=== PATIENT | male | born 1970 | race African-American/Black ===

== ENCOUNTER 2017-02-27 18:02 | Emergency (ER) | payer SELFPAY ==
[2017-02-27 18:06] VITALS: BMI 59.1
--- NOTE | 2017-02-27 19:46 | PDOC ---
History of Present Illness - General Chief Complaint: Edema Stated Complaint: LT LEG PAIN/abd pain, diarrhea Time Seen by Provider: 02/27/17 19:06 - History of Present Illness Initial Comments: 02/27/17 19:49 HPI: 46M w/ hx of morbid obesity and chronic lower leg swelling presenting with L lower extremity pain. Pt reports that the pain began 2 days ago shortly after he started using lower extremity "pumps" to reduce edema. The pain has been getting progressively worse, 10/10, exacerbated by any movement, and markedly swollen. Pt reports having a stomach virus for the past 4 days associated with diarrhea, decreased appetite, and nausea, but no emesis. Pt reports spending a lot of time in bed the past few days. 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 He denies chest pain, SOB, cough. Past History - Past Medical History Allergies/Adverse Reactions: Allergies Allergy/AdvReac Type Severity Reaction Status Date / Time No Known Allergies Allergy Verified 02/27/17 22:15 Home Medications: Ambulatory Orders Clindamycin [Cleocin -] 300 mg PO Q6HPO #28 capsule 02/28/17 Diabetes: Yes (borderline) HTN: Yes Other medical history: morbily obese, elephantitis Comment:: 02/27/17 19:56 PMH: HTN borderline DM PSH: None Meds: patient could not remember what he takes Allergies: NKDA Fam Hx: DM in mom Social Hx: pt works as a sexual abuse counsellor - Psycho/Social/Smoking Cessation Hx Anxiety: No Suicidal Ideation: No Smoking History: Never smoked Have you smoked in the past 12 months: No Information on smoking cessation initiated: No Hx Alcohol Use: Yes (occasional) Drug/Substance Use Hx: No Substance Use Type: None Review of Systems - Review of Systems Comments:: 02/27/17 19:58 GENERAL: No fever, chills, night sweats, or weakness. HEAD, EYES, EARS, NOSE AND THROAT: No change in vision, ear pain, or sore throat CARDIOVASCULAR: No chest pain or palpitations RESPIRATORY: No cough, wheezing, or hemoptysis. GASTROINTESTINAL: nausea and diarrhea, no vomiting, constipation, or blood in the stool. GENITOURINARY: frequency and urgency MUSCULOSKELETAL: edema and pain in left leg SKIN: No rashes or pruritis ENDOCRINE: No increased thirst. No abnormal weight change NEUROLOGIC: No headache, dizziness, loss of consciousness, or change in strength /sensation. *Physical Exam - Vital Signs Last Vital Signs Temp Pulse Resp BP Pulse Ox 99.6 F 122 H 19 108/70 96 02/27/17 18:04 02/27/17 18:04 02/27/17 18:04 02/27/17 18:04 02/27/17 18:04 - Physical Exam Comments: 02/27/17 19:59 GENERAL: Awake, alert, and fully oriented, leaning on right leg HEAD: normocephalic, atraumatic HEENT: PERRLA, EOMI, sclera anicteric, conjunctiva clear, hearing grossly normal , nares patent, oropharynx clear without exudate, moist mucosa NECK: Normal ROM, supple, no lymphadenopathy, JVD, or masses HEART: tachycardic, normal rhythm, normal S1 and S2, no murmurs, rubs or gallops , peripheral pulses normal and equal bilaterally. LUNGS: CTAB, no wheezing, no rales ABDOMEN: marked pannus, soft, nontender, nondistended, normoactive bowel sounds. No guarding, no rebound. No masses EXTREMITIES: L lower extremity is markedly edematous, hyperpigmented, indurated , warm to touch, no rash visible, very tender all around. R lower extremity is similar in appearance but slightly less swollen and not warm to touch NEUROLOGICAL: Cranial nerves II through XII grossly intact. Normal speech, normal gait, no focal sensorimotor deficits ED Treatment Course - LABORATORY CBC & Chemistry Diagram: 02/27/17 22:15 02/27/17 22:15 Medical Decision Making - Medical Decision Making 02/27/17 20:02 46M w/ hx of morbid obesity and chronic LE swelling presenting with L lower extremity pain and swelling w/ recent hx of decreased mobility. Exam notable for temp of 99.6, tachycardia, and swollen and warm L LE. Likely cellulitis, r/ o DVT. -CBC: wbc of 13.3 -CXR- unremarkable -CMP-K of 3.4, low albumin -EKG -duplex U/S: no evidence of DVT. Large lymph node in left groin measuring about 5 x 2 cm. -Coags: INR of 1.16 -pain control with tylenol, then morphine. 02/27/17 21:54 02/27/17 22:50 02/27/17 22:52 02/27/17 23:36 02/27/17 23:38 *DC/Admit/Observation/Transfer Diagnosis at time of Disposition: Cellulitis Qualifiers: Site of cellulitis: extremity Site of cellulitis of extremity: lower extremity Laterality: left Qualified Code(s): L03.116 - Cellulitis of left lower limb - Discharge Dispostion Condition at time of disposition: Stable Admit: Yes - Prescriptions Prescriptions: Clindamycin [Cleocin -] 300 mg PO Q6HPO #28 capsule - Patient Instructions Printed Discharge Instructions: DI for Cellulitis -- Adult Additional Instructions: Finish course of antibiotics. If cellulitis worsens or does not resolve after course of antibiotics, return to ED. - Attestations Physician Attestion: 02/28/17 04:00 I, Dr. Talon Gambino, attest that this document has been prepared under my direction and personally reviewed by me in its entirety. I further attest, that it accurately reflects all work, treatment, procedures and medical decision -making performed by me.
[2017-02-27] MEDS ORDERED: ACETAMINOPHEN 500 MG TABLET (FP) PO ONE (20:06)
--- NOTE | 2017-02-27 20:44 | PDOC ---
Attending Attestation - HPI HPI: The patient is a 46 yo M with a past medical history significant for HTN, obesity, untreated DM, Hx of cellulitis on his R leg 1 year ago and chronic LE edema who presents with LLE pain and edema for 2 days. The patient states the pain and edema began shortly after using lower extremity pumps. The pain in his LLE has been getting progressively worse and is exacerbated with movement. The patient states the pain is worse near his ankle. The patient also notes hes been experiencing nausea, vomiting, diarrhea and decreased appetite last couple days. The patient describes his vomit as non-bilious and non-bloody. The patient states his leg pain started first and was followed by his N/V/D two days ago. 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 He denies chest pain, SOB and cough. He endorses frequency. He sees Dr. Humphries for wound care on his RLE. Allergies: NKDA PCP: Dr. Quintero Venita Mathis (): [phone] - Physicial Exam PE: GENERAL: Awake, alert, and fully oriented, in no acute distress HEAD: No signs of trauma EYES: PERRLA, EOMI, sclera anicteric, conjunctiva clear ENT: Auricles normal inspection, hearing grossly normal, nares patent, oropharynx clear without exudates. Moist mucosa NECK: Normal ROM, supple, no lymphadenopathy, JVD, or masses LUNGS: Breath sounds equal, clear to auscultation bilaterally. No wheezes, and no crackles HEART: Regular rate and rhythm, normal S1 and S2, no murmurs, rubs or gallops ABDOMEN: Obese, Soft, nontender, normoactive bowel sounds. No guarding, no rebound. No masses EXTREMITIES: Normal range of motion, edema mildly greater in LLE. LLE warm, erythematous, no fluctuance but indurated. No crepitus. No clubbing or cyanosis. No cords, erythema, or tenderness NEUROLOGICAL: Cranial nerves II through XII grossly intact. Normal speech, normal gait SKIN: Warm, Dry, normal turgor, no rashes or lesions noted. - Medical Decision Making Documentation prepared by Rosa Kee, acting as medical transcription supervisor for Lino Koenig MD, /DO. <Rosa Kee - Last Filed: 02/27/17 23:12> - Resident Resident Name: Talon Gambino - Medical Decision Making 02/28/17 00:02 46yo M hx chronic LE edema, HTN, "pre-diabetes" p/w LLE swelling, erythema, and warmth extending from the L knee to the L ankle concerning for LLE cellulitis vs DVT. Pt also with complaints of N/V/D concerning for gastroenteritis. Pt tachycardic on arrival to 122, likely 2/2 dehydration. Plan: -labs -LE US -IVF -blood cx -IV levaquin -consider admission Laboratory Results - last 24 hr 02/27/17 02/27/17 02/27/17 22:15 22:15 22:15 WBC 13.3 H D RBC 4.29 Hgb 12.1 Hct 38.3 MCV 89.2 MCH 28.2 MCHC 31.6 L RDW 15.4 Plt Count 167 D MPV 10.6 D Neutrophils % 77.4 D Lymphocytes % 11.1 D Monocytes % 10.2 Eosinophils % 1.1 Basophils % 0.2 INR 1.16 H PTT (Actin FS) Sodium 137 Potassium 3.4 L D Chloride 98 Carbon Dioxide 32 Anion Gap 7 L BUN 13 Creatinine 1.2 Creat Clearance w eGFR > 60 Random Glucose 107 H Lactic Acid Calcium 8.9 Total Bilirubin 0.7 D AST 25 D ALT 24 Alkaline Phosphatase 100 Total Protein 7.4 Albumin 3.0 L Urine Color Urine Appearance Urine pH Urine Protein Urine Glucose (UA) Urine Ketones Urine Blood Urine Nitrite Urine Bilirubin Urine Urobilinogen Ur Leukocyte Esterase Urine RBC Urine WBC Ur Epithelial Cells Urine Bacteria Hyaline Casts Urine Mucus 02/27/17 02/27/17 02/28/17 22:15 22:15 00:53 WBC RBC Hgb Hct MCV MCH MCHC RDW Plt Count MPV Neutrophils % Lymphocytes % Monocytes % Eosinophils % Basophils % INR PTT (Actin FS) 31.6 Sodium Potassium Chloride Carbon Dioxide Anion Gap BUN Creatinine Creat Clearance w eGFR Random Glucose Lactic Acid 1.3 Calcium Total Bilirubin AST ALT Alkaline Phosphatase Total Protein Albumin Urine Color Dia Urine Appearance Slcloudy Urine pH 5.0 Urine Protein 2+ H Urine Glucose (UA) Negative Urine Ketones Trace H Urine Blood 1+ H Urine Nitrite Negative Urine Bilirubin Negative Urine Urobilinogen 4.0 e.u/dl Ur Leukocyte Esterase Negative Urine RBC 2 Urine WBC 3 Ur Epithelial Cells Rare Urine Bacteria Few Hyaline Casts 1 Urine Mucus Moderate 02/28/17 03:14 US negative for DVT. WBC 13. Likely cellulitis of the LLE. Pt remains tachycardic although improved to low 100s after 1L NS. Will admit for cellulitis and dehydration. 02/28/17 03:18 <Lino Koenig - Last Filed: 02/28/17 03:19>
[2017-02-27] MEDS ORDERED: ACETAMINOPHEN 325 MG TABLET (FP) ONE (21:54)
[2017-02-27] MEDS ORDERED: morphine CARPU-JECT 4 MG/1 ML DISP.SYRIN IVPUSH ONE (22:16)
[2017-02-27] MEDS ORDERED: SODIUM CHLORIDE 1,000 ML IV STA (22:17)
[2017-02-27] MEDS ORDERED: LEVOFLOXACIN 500 MG IVPB 100 ML IVPB ONE ×2 (22:25→22:55)
[2017-02-27] MEDS ORDERED: morphine CARPU-JECT 4 MG/1 ML DISP.SYRIN ONE (22:26)
[2017-02-27 22:40] LABS: BASOPHIL 0.2 % (0-2.0); EOSINOPHIL 1.1 % (0-4.5); MCH 28.2 pg (25.7-33.7); MCHC 31.6 g/dl (32.0-35.9); MEAN CELL VOLUME 89.2 fl (80-96); MEAN PLT VOLUME 10.6 fl (7.5-11.1); NEUTROPHILS 77.4 % (42.8-82.8); PLATELET COUNT 167 K/MM3 (134-434); RDW 15.4 % (11.9-15.9); WHITE BLOOD COUNT 13.3 K/mm3 (4.0-10.0)
[2017-02-27 22:54] LABS: INR 1.16 (0.82-1.09); PROTHROMBIN TIME (PATIENT) 12.8 SEC (9.98-11.88)
[2017-02-27 23:08] LABS: ALK PHOS 100 U/L (45-117); ANION GAP 7 (8-16); BILIRUBIN,TOTAL 0.7 mg/dL (0.2-1.0); CALCIUM 8.9 mg/dL (8.5-10.1); CO2 32 mmol/L (21-32); CREATININE 1.2 mg/dL (0.7-1.3); GLUCOSE,RANDOM 107 mg/dL (74-106); SGOT/AST 25 U/L (15-37); SGPT/ALT 24 U/L (12-78); TOT PROT 7.4 g/dl (6.4-8.2)
--- NOTE | 2017-02-28 00:49 | CONSULT ---
Consult Consult Specialty:: General Medicine - History of Present Illness Chief Complaint: LLE pain History of Present Illness: 46 yo AA h/o morbid obesity and chronic b/l LE edema presented to the ED with LLE pain x [address] Humphries (vascular surgery) on Friday and was instructed to use pumps for leg swelling. He noticed a new onset of pain in LLE , throbbing, constant, 8/10 at worst, non-radiating, no other associated symptoms, and did not try any pain relief medication. Denies fever, chills, chest pain, sob, n/v, urinary or bowel symptoms. - History Source History Provided By: Patient - Alcohol/Substance Use Hx Alcohol Use: Yes (occasional) - Smoking History Smoking history: Never smoked Have you smoked in the past 12 months: No Home Medications - Allergies Allergies/Adverse Reactions: Allergies Allergy/AdvReac Type Severity Reaction Status Date / Time No Known Allergies Allergy Verified 02/27/17 22:15 - Home Medications Home Medications: Ambulatory Orders Clindamycin [Cleocin -] 300 mg PO Q6HPO #28 capsule 02/28/17 Review of Systems - Review of Systems Constitutional: reports: No Symptoms Cardiovascular: reports: No Symptoms. denies: Chest Pain Respiratory: reports: No Symptoms. denies: Cough, SOB Gastrointestinal: reports: No Symptoms. denies: Abdominal Pain, Constipation, Diarrhea, Nausea, Vomiting Genitourinary: reports: No Symptoms Musculoskeletal: reports: No Symptoms, Extremity Pain (LLE) Physical Exam Vital Signs: Vital Signs Temperature 99.6 F 02/27/17 18:04 Pulse Rate 122 H 02/27/17 18:04 Respiratory Rate 19 02/27/17 18:04 Blood Pressure 108/70 02/27/17 18:04 O2 Sat by Pulse Oximetry (%) 96 02/27/17 19:17 Constitutional: Yes: No Distress, Calm, Obese Cardiovascular: Yes: Tachycardia, S1, S2. No: S3, S4 Respiratory: Yes: CTA Bilaterally Gastrointestinal: Yes: Normal Bowel Sounds, Soft, Abdomen, Obese. No: Tenderness Extremities: Yes: Other (b/l chronic swelling and venous stasis; LLE tender to palpation, warm.) Edema: LLE: 1+, RLE: 1+ Integumentary: Yes: Venous Stasis Changes Neurological: Yes: WNL, Alert, Oriented Labs: CBC, BMP 02/27/17 22:15 02/27/17 22:15 Imaging - Results Chest X-ray: Report Reviewed, Image Reviewed Other: Report Reviewed, Image Reviewed Assessment/Plan LLE Cellulitis, in the setting of b/l chronic venous stasis and swelling - Clindamycin 450mg QID x 7 days - Tylenol 650mg Q6H PRN for pain - Received 1L NS in ED, give another 1L bolus NS - F/U with vascular and PMD within a week Visit type - Emergency Visit Emergency Visit: Yes Care time: The patient presented to the Emergency Department on the above date and was hospitalized for further evaluation of their emergent condition. - New Patient This patient is new to me today: Yes Date on this admission: 02/28/17 - Critical Care Critical Care patient: No
[2017-02-28] MEDS ORDERED: SODIUM CHLORIDE 1,000 ML IV STA (01:01)
[2017-02-28 01:02] LABS: URINE APPEARANCE SLCLOUDY; URINE BILIRUBIN NEGATIVE (NEGATIVE); URINE BLOOD 1+ (NEGATIVE); URINE COLOR AMBER; URINE GLUCOSE (UA) NEGATIVE (NEGATIVE); URINE KETONE TRACE (NEGATIVE); URINE LEUK ESTERASE NEGATIVE (NEGATIVE); URINE NITRITE NEGATIVE (NEGATIVE); URINE UROBILINOGEN 4.0 E.U/dl mg/dL (0.2-1.0)
[2017-02-28 01:04] LABS: URINE PROTEIN 2+ (NEGATIVE)
[2017-02-28 01:06] LABS: URINE BACTERIA FEW /hpf (NONE SEEN); URINE HYALINE CAST 1 /lpf; URINE MUCUS MODERATE; URINE RBC 2 /hpf (0-3); URINE WBC 3 /hpf (3-5)
[2017-02-28 03:45] VITALS: BP 115/70; PULSE 99; TEMP 98.9
--- NOTE | 2017-02-28 10:09 | EKG ---
Test Reason : Blood Pressure : / mmHG Vent. Rate : 103 BPM Atrial Rate : 103 BPM P-R Int : 130 ms QRS Dur : 084 ms QT Int : 344 ms P-R-T Axes : 047 065 011 degrees QTc Int : 450 ms SINUS TACHYCARDIA OTHERWISE NORMAL ECG WHEN COMPARED WITH ECG OF 11-MAY-2016 20:21, NO SIGNIFICANT CHANGE WAS FOUND Confirmed by ROSSY MCCLOUD MD ([id number]) on 02/28/2017 10:08:54 AM Referred By: Confirmed By:ROSSY MCCLOUD MD
== END 2017-02-28 03:51 | disposition home or self-care (01) ==
LOC: JER 18:02 → UNDOADMOB 02-28 01:55 → JERBED 02-28 01:55 → JER 02-28 03:51
PROC: 3E03329 Introduction of Other Anti-infective into Peripheral Vein, Percutaneous Approach (ICD-10-PCS; principal; 2017-02-27)
PROC: 3E033NZ Introduction of Analgesics, Hypnotics, Sedatives into Peripheral Vein, Percutaneous Approach (ICD-10-PCS; 2017-02-27)
PROC: 3E0337Z Introduction of Electrolytic and Water Balance Substance into Peripheral Vein, Percutaneous Approach (ICD-10-PCS; 2017-02-27)
DX: L03.116 Cellulitis of left lower limb (principal); E66.9 Obesity, unspecified; Z68.43 Body mass index [BMI] 50.0-59.9, adult; I10 Essential (primary) hypertension; I89.0 Lymphedema, not elsewhere classified
CPT/HCPCS: 36415; 71020-TC; 80053; 81003; 81015; 83605; 85025; 85610; 85730; 87040; 93005; 93010; 93970-TC; 99283-25

== ENCOUNTER 2017-03-04 07:04 | Inpatient (IN) | payer SELFPAY ==
[2017-03-04 07:18] VITALS: BMI 59.1
[2017-03-04] MEDS ORDERED: SODIUM CHLORIDE 0.9% 1000 ML INFUS.BAG IV ONE (07:42)
[2017-03-04] MEDS ORDERED: VANCOMYCIN 1 GRAM (PRE-DOCKED) 1,000 MG/250 ML BAG IVPB ONE (07:48)
[2017-03-04] MEDS ORDERED: PIPERACILLIN/TAZOB 4.5 GM/100 ML PRE-DOCKED IVPB ONE (07:49)
--- NOTE | 2017-03-04 07:56 | PDOC ---
Attending Attestation - Resident Resident Name: GreysonGreg davis - ED Attending Attestation I have performed the following: I have examined & evaluated the patient, The case was reviewed & discussed with the resident, I agree w/resident's findings & plan, Exceptions are as noted - HPI HPI: 03/04/17 07:49 46y/o M HTN, chronic venous stasis, prediabetic seen here on 02/27 for worsening LLE swelling/pain, diagnosed with cellulitis and discharged on clindamycin with plans for outpt f/u as per vascular, now p/w worsening LLE swelling/redness/ pain despite compliance with abx. no f/c, no motor/sensory deficit. no cp/palp/sob - Physicial Exam PE: 03/04/17 07:50 98.2, 112 (tachy to 110 on prior visit also), SBP 90 alert, morbidly obese but comfortable, well appearing, nl RR LLE: erythematous, warm, significant edema with superficial wounds posterior calf wheeping clear fluid nvi, FROM all joints - Medical Decision Making 03/04/17 07:52 Patient seen and evaluated with the resident. I agree with the overall evaluation, assessment, and management with the following summary of visit: 46-year-old male with history of prediabetes, chronic venous stasis presents with persistent left lower extremity cellulitis despite trial of outpatient clindamycin. Patient had negative DVT ultrasound on prior visit, cellulitis persists. Mild tachycardia and systolic blood pressure of 90, concerning for early SIRS/sepsis. Sepsis protocol initiated IV abx repeat doppler consult vascular Dr. Humphries admit
[2017-03-04] MEDS ORDERED: PIPERACILLIN/TAZOB 4.5 GM 100 ML IVPB ONE (08:00)
--- NOTE | 2017-03-04 08:05 | PDOC ---
History of Present Illness - General History Source: Patient Exam Limitations: No Limitations - History of Present Illness Initial Comments: 03/04/17 08:00 The patient is a 46M with a PMH of HTN, untreated DM, morbid obesity, and h/o cellulitis in R leg 1 year ago. The patient presented 5 days ago with symptoms of LLE cellulitis, was d/c with tylenol for pain and clindamycin for cellulitis coverage. Today the patient presents with overnight painful LLE with weeping ulcers. He states the pain is due to the tightness in his legs. He is compliant wit his abx. He follows with Dr. Humphries for his wound care. Allergies: none Surg: none recent Social: occasional drinks; does not smoke, or use recreational drugs <Greg Summers - Last Filed: 03/04/17 10:11> <Willy Lo - Last Filed: 03/04/17 11:06> - General Chief Complaint: Wound Infection Stated Complaint: SWOLLEN LEGS/WOUND Time Seen by Provider: 03/04/17 07:16 Past History - Past Medical History Diabetes: Yes (borderline) HTN: Yes - Psycho/Social/Smoking Cessation Hx Anxiety: No Suicidal Ideation: No Smoking History: Never smoked Have you smoked in the past 12 months: No Hx Alcohol Use: Yes (occasional) Drug/Substance Use Hx: No Substance Use Type: None <Greg Summers - Last Filed: 03/04/17 10:11> <Willy Lo - Last Filed: 03/04/17 11:06> - Past Medical History Allergies/Adverse Reactions: Allergies Allergy/AdvReac Type Severity Reaction Status Date / Time No Known Allergies Allergy Verified 03/04/17 07:06 Home Medications: Ambulatory Orders Unobtainable 03/04/17 Review of Systems - Review of Systems Able to Perform ROS?: Yes Is the patient limited Chinese proficient: No Constitutional: No: Chills, Fever Respiratory: No: Shortness of Breath Cardiac (ROS): No: Chest Pain ABD/GI: No: Nausea, Vomiting, Other (abd pain) : No: Burning, Dysuria, Discharge Integumentary: Yes: Other (b/l LE swelling and weeping wounds) Neurological: No: Headache, Numbness, Tingling, Weakness <Greg Summers - Last Filed: 03/04/17 10:11> *Physical Exam - Vital Signs Last Vital Signs Temp Pulse Resp BP Pulse Ox 98.2 F 112 H 15 90/33 95 03/04/17 07:06 03/04/17 07:06 03/04/17 07:06 03/04/17 07:06 03/04/17 07:06 - Physical Exam General Appearance: Yes: Nourished, Obese HEENT: positive: Normal Voice, Hearing Grossly Normal Respiratory/Chest: positive: Lungs Clear, Normal Breath Sounds. negative: Chest Tender, Accessory Muscle Use, Labored Respiration Cardiovascular: positive: Regular Rhythm, S1, S2, Tachycardia. negative: Diastolic Murmur, Systolic Murmur Gastrointestinal/Abdominal: positive: Flat, Soft. negative: Tender, Guarding, Rebound, Tenderness Extremity: positive: Tender, Pedal Edema (LLE), Swelling, Calf Tenderness, Erythema, Inflammation Integumentary: positive: Swelling, Other (3 weeping ulcers on posterior LLE) Neurologic: positive: Fully Oriented, Alert, Normal Mood/Affect, Motor Strength 5/5 <Greg Summers - Last Filed: 03/04/17 10:11> - Vital Signs Last Vital Signs Temp Pulse Resp BP Pulse Ox 98.2 F 91 H 15 114/58 97 03/04/17 07:06 03/04/17 08:05 03/04/17 07:06 03/04/17 08:05 03/04/17 08:05 <Willy Lo - Last Filed: 03/04/17 11:06> Heart Score/ECG Review - QRS Widened: RBBB (incomplete) - ECG Impressions Tachycardia: Sinus <Greg Summers - Last Filed: 03/04/17 10:11> ED Treatment Course - LABORATORY CBC & Chemistry Diagram: 03/04/17 08:15 03/04/17 08:15 - RADIOLOGY Radiology Studies Ordered: Category Date Time Status CHEST X-RAY PORTABLE* [RAD] Stat Radiology 03/04/17 07:42 Ordered DUPLEX VASCUL US-2LEGS [US] Stat Ultrasound 03/04/17 07:41 Ordered <Greg Summers - Last Filed: 03/04/17 10:11> - LABORATORY CBC & Chemistry Diagram: 03/04/17 08:15 03/04/17 08:15 - ADDITIONAL ORDERS Additional order review: Laboratory Results 03/04/17 08:32 VBG pH 7.41 POC VBG pCO2 53.0 H POC VBG pO2 38.0 Mixed VBG HCO3 33.0 H 03/04/17 08:15 RBC 3.97 L MCV 89.0 MCHC 31.7 L RDW 15.7 MPV 10.1 Neutrophils % Y Lymphocytes % Y - RADIOLOGY Radiograph Interpretation: 03/04/17 09:05 Chest X-Ray, reviewed by Abad Duran MD. Impression: Shallow inspiration. Cardiomegaly. No airspace opacities are seen in the visualized lungs. Left lower lung zone obscured by the cardiac silhouette, soft tissues of the chest. Duplex Vascular Study, lower extremities bilaterally. Read by Maco Evans MD. Impression: There is no evidence of deep venous thromboses in both lower extremities. Soft tissue swelling in the left and to a lesser extent in the right leg. 03/04/17 11:06 - Medications Given in the ED: ED Medications Discontinued Medications Generic Name Dose Route Start Last Admin Trade Name Freq PRN Reason Stop Dose Admin Piperacillin Sod/Tazobactam Sod 4.5 gm 03/04/17 07:49 03/04/17 08:25 Zosyn 4.5gm Ivpb (Pre-Docked) IVPB 03/04/17 07:50 4.5 gm ONCE ONE Administration Sodium Chloride 1,000 ml 03/04/17 07:42 03/04/17 08:25 Normal Saline - IV 03/04/17 07:43 1,000 ml ONCE ONE Administration Vancomycin HCl 1,000 mg 03/04/17 07:48 03/04/17 08:38 Vancomycin (Pre-Docked) IVPB 03/04/17 07:49 Not Given ONCE ONE Protocol <Willy Lo - Last Filed: 03/04/17 11:06> Medical Decision Making - Medical Decision Making 03/04/17 08:13 The patient is a 46M with a PMH of HTN, untreated DM, and morbid obesity who presents with a 5 day history of LLE cellulitis. He has failed outpatient clindamycin and I have ordered a sepsis protocol with broad spectrum IV abx. 03/04/17 08:59 CBC results: - WBC Count of 25.2. - Hgb 11.2. 03/04/17 10:11 Pt signed out to hospitalist team, resident of Dr. Clark. <Greg Summers - Last Filed: 03/04/17 10:11> *DC/Admit/Observation/Transfer - Discharge Dispostion Admit: Yes <Greg Summers - Last Filed: 03/04/17 10:11> <Willy Lo - Last Filed: 03/04/17 11:06> Diagnosis at time of Disposition: Cellulitis Qualifiers: Site of cellulitis: extremity Site of cellulitis of extremity: lower extremity Laterality: left Qualified Code(s): L03.116 - Cellulitis of left lower limb - Discharge Dispostion Condition at time of disposition: Stable
[2017-03-04] MEDS ORDERED: VANCOMYCIN 2,000 MG in DEXTROSE 5%-WATER - 500 ML IVPB ONE (08:18)
[2017-03-04 08:34] LABS: VENOUS PH 7.41 (7.32-7.42)
[2017-03-04 08:44] LABS: MCH 28.2 pg (25.7-33.7); MCHC 31.7 g/dl (32.0-35.9); MEAN PLT VOLUME 10.1 fl (7.5-11.1); PLATELET COUNT 284 K/MM3 (134-434); RDW 15.7 % (11.9-15.9); WHITE BLOOD COUNT 25.2 K/mm3 (4.0-10.0)
[2017-03-04 09:02] LABS: INR 1.27 (0.82-1.09)
[2017-03-04 09:11] LABS: ALBUMIN 2.3 g/dl (3.4-5.0); ANION GAP 8 (8-16); CALCIUM 8.2 mg/dL (8.5-10.1); CO2 32 mmol/L (21-32); CREATININE 1.3 mg/dL (0.7-1.3); GLUCOSE,RANDOM 104 mg/dL (74-106); SGPT/ALT 19 U/L (12-78); TOT PROT 6.5 g/dl (6.4-8.2)
[2017-03-04 09:13] LABS: ALK PHOS 106 U/L (45-117); TROPONIN I < 0.02 ng/ml (0.00-0.05)
[2017-03-04 09:18] LABS: CPK 206 IU/L (39-308); SGOT/AST 21 U/L (15-37)
[2017-03-04 10:32] LABS: METAMYELOCYTE 0 % (0-2); PLATELET ESTIMATE ADEQUATE (NORMAL)
--- NOTE | 2017-03-04 11:07 | EKG ---
Test Reason : Blood Pressure : / mmHG Vent. Rate : 092 BPM Atrial Rate : 092 BPM P-R Int : 132 ms QRS Dur : 086 ms QT Int : 394 ms P-R-T Axes : 037 034 010 degrees QTc Int : 487 ms SINUS RHYTHM. LEFT ATRIAL ENLARGEMENT rSR' IN V1 PROLONGED QT ABNORMAL ECG WHEN COMPARED WITH ECG OF 28-FEB-2017 01:19, NO SIGNIFICANT CHANGE WAS FOUND Confirmed by KIMBERLY FARRAR MD ([id number]) on 03/04/2017 11:06:28 AM Referred By: Confirmed By:KIMBERLY FARRAR MD
--- NOTE | 2017-03-04 11:47 | HP ---
CHIEF COMPLAINT: Left leg pain and swelling. PCP: HISTORY OF PRESENT ILLNESS: 46 yo morbidly obese M with significant PMHx of pre-diabetes,HTN, and chronic venous insufficiency present with one week history of left leg swelling and redness. He was seen in ED on 02/27/17 and diagnosed with acute cellulitis of left leg and given a perscription of oral clindamycin. Despite being compliant with medication he returns today with worsening swelling and redness as well as new ulceration. He states that he has had no improvement of symptoms since last seen. He also endorsed subjective fever and chills. Pain in legs is significant 10/10 localized LLE squeezing pain.No alleviating factors and aggravated with palpation.Denies CP,REYES, SOB, abd.pain, N/V. ER course was notable for: (1)Given Vanco/Zosyn x1-->blood and urine cultures sent prior to administration. (2)LE xray showed no acute bony abnormalities are seen. No evidence of bony destructive changes. No evidence of radiopaque foreign body, soft tissues emphysematous changes. (3)LE doppler was negative for DVT with only soft tissue swelling. Recent Travel:Denies PAST MEDICAL HISTORY: pre-diabetes,HTN, and chronic venous insufficiency PAST SURGICAL HISTORY:none Social History: Smoking: Denies Alcohol:Denies Drugs: denies Family History: Allergies No Known Allergies Allergy (Verified 03/04/17 07:06) HOME MEDICATIONS: Home Medications Medication Instructions Recorded Unobtainable 03/04/17 REVIEW OF SYSTEMS CONSTITUTIONAL: fever, chills, diaphoresis, generalized weakness Absent: , malaise, loss of appetite, weight change HEENT: Absent: rhinorrhea, nasal congestion, throat pain, throat swelling, difficulty swallowing, mouth swelling, ear pain, eye pain, visual changes CARDIOVASCULAR: Absent: chest pain, syncope, palpitations, irregular heart rate, lightheadedness , peripheral edema RESPIRATORY: Absent: cough, shortness of breath, dyspnea with exertion, orthopnea, wheezing, stridor, hemoptysis GASTROINTESTINAL: Absent: abdominal pain, abdominal distension, nausea, vomiting, diarrhea, constipation, melena, hematochezia GENITOURINARY: Absent: dysuria, frequency, urgency, hesitancy, hematuria, flank pain, genital pain MUSCULOSKELETAL: Absent: myalgia, arthralgia, joint swelling, back pain, neck pain SKIN: LEFT lower ext itching and pain. Absent: rash, itching, pallor HEMATOLOGIC/IMMUNOLOGIC: Absent: easy bleeding, easy bruising, lymphadenopathy, frequent infections ENDOCRINE: Absent: unexplained weight gain, unexplained weight loss, heat intolerance, cold intolerance NEUROLOGIC: Absent: headache, focal weakness or paresthesias, dizziness, unsteady gait, seizure, mental status changes, bladder or bowel incontinence PSYCHIATRIC: Absent: anxiety, depression, suicidal or homicidal ideation, hallucinations. PHYSICAL EXAMINATION GENERAL: AAOx3, Mild distress. HEAD: AT/NC EYES: PERRLA, EOMI, sclera anicteric, conjunctiva clear. No lid lag. EARS, NOSE, THROAT: Moist mucous membranes. NECK: Thick, supple without lymphadenopathy, JVD, or masses. LUNGS: Decreased breath sounds bilaterally(poor inspiratory effort 2/2 body habitus). No wheezes, and no crackles. No accessory muscle use. HEART:RRR, NO M/G/R ABDOMEN: Soft,obese, nontender, not distended, normoactive bowel sounds, no guarding, no rebound, no masses. No hepatomegaly or splenomegaly. MUSCULOSKELETAL: Normal range of motion at all joints. No bony deformities or tenderness. No CVA tenderness. UPPER EXTREMITIES: 2+ pulses, warm, well-perfused. No cyanosis. No clubbing. No peripheral edema. LOWER EXTREMITIES: 1+ pulses, warm, well-perfused. left calf tenderness. 3+ peripheral edema bilaterally. LLE with 2 posterior weeping ulcers measuring 2x2 and 8x3 NEUROLOGICAL: Cranial nerves II-XII intact. Normal speech. gait not observed. PSYCHIATRIC: Cooperative. Good eye contact. Appropriate mood and affect. SKIN: Warm, dry, normal turgor, LLE cellulitis from ankle almost up to knee. ASSESSMENT/PLAN: 46 yo morbidly obese M with significant PMHx of pre-diabetes,HTN, and chronic venous insufficiency admitted for sepsis secondary to LE cellulitis. Problem List - Problem (1) Sepsis affecting skin Assessment/Plan: * Meets criteria for sepsis. * Admit to med-surg * Blood and Urine cultures * Given Vanco/Zosyn in ER * ID consult. (2) Cellulitis Assessment/Plan: * Iv abx initiated- ID consulted for Abx management. * LE Doppler (-) DVT * LE XRAY negative for fracture or bony involvement. * Will consult vascular Dr. Humphries as he follows him as outpatient. * Elevation of LLE * Wound care for open ulcers. Santly dressing. (3) Lymphedema of extremity Assessment/Plan: * He uses Lymphedema pump at home but unable to bring it in * Compression stockings. Code(s): I89.0 - LYMPHEDEMA, NOT ELSEWHERE CLASSIFIED (4) HTN (hypertension) Assessment/Plan: * Continue home meds for BP control with goal of SBP <140 (5) Pre-diabetes Assessment/Plan: * HgbA1c * ADA diet * Novolog ISS ACHS * BGM ACHS Visit type - Emergency Visit Emergency Visit: Yes ED Registration Date: 03/04/17 Care time: The patient presented to the Emergency Department on the above date and was hospitalized for further evaluation of their emergent condition. - New Patient This patient is new to me today: Yes Date on this admission: 03/04/17 - Critical Care Critical Care patient: No
[2017-03-04] MEDS ORDERED: SODIUM CHLORIDE 1,000 ML IV STA (14:02)
--- NOTE | 2017-03-04 15:08 | PN ---
Teaching Attending Note Name of Resident: Zac Ontiveros ATTENDING PHYSICIAN STATEMENT I saw and evaluated the patient. I reviewed the resident's note and discussed the case with the resident. I agree with the resident's findings and plan as documented. SUBJECTIVE: Patient is a 46yo male presented with LLE cellulitis and edema. OBJECTIVE: Vital Signs Temperature 98.2 F 03/04/17 07:06 Pulse Rate 90 03/04/17 14:48 Respiratory Rate 15 03/04/17 07:06 Blood Pressure 119/63 03/04/17 14:48 O2 Sat by Pulse Oximetry (%) 97 03/04/17 14:48 CBCD WBC 25.2 K/mm3 (4.0-10.0) H D 03/04/17 08:15 RBC 3.97 M/mm3 (4.00-5.60) L 03/04/17 08:15 Hgb 11.2 GM/dL (11.7-16.9) L 03/04/17 08:15 Hct 35.3 % (35.4-49) L 03/04/17 08:15 MCV 89.0 fl (80-96) 03/04/17 08:15 MCHC 31.7 g/dl (32.0-35.9) L 03/04/17 08:15 RDW 15.7 % (11.9-15.9) 03/04/17 08:15 Plt Count 284 K/MM3 (134-434) D 03/04/17 08:15 MPV 10.1 fl (7.5-11.1) 03/04/17 08:15 CMP Sodium 138 mmol/L (136-145) 03/04/17 08:15 Potassium 3.6 mmol/L (3.5-5.1) 03/04/17 08:15 Chloride 98 mmol/L (98-107) 03/04/17 08:15 Carbon Dioxide 32 mmol/L (21-32) 03/04/17 08:15 Anion Gap 8 (8-16) 03/04/17 08:15 BUN 15 mg/dL (7-18) 03/04/17 08:15 Creatinine 1.3 mg/dL (0.7-1.3) 03/04/17 08:15 Creat Clearance w eGFR 59.70 (>60) 03/04/17 08:15 Random Glucose 104 mg/dL (74-106) 03/04/17 08:15 Calcium 8.2 mg/dL (8.5-10.1) L 03/04/17 08:15 Total Bilirubin 1.0 mg/dL (0.2-1.0) D 03/04/17 08:15 AST 21 U/L (15-37) 03/04/17 08:15 ALT 19 U/L (12-78) D 03/04/17 08:15 Alkaline Phosphatase 106 U/L (45-117) 03/04/17 08:15 Total Protein 6.5 g/dl (6.4-8.2) 03/04/17 08:15 Albumin 2.3 g/dl (3.4-5.0) L D 03/04/17 08:15 CARDIAC ENZYMES Creatine Kinase 206 IU/L (39-308) 03/04/17 08:15 Troponin I < 0.02 ng/ml (0.00-0.05) 03/04/17 08:15 Current Medications Generic Name Dose Route Start Last Admin Trade Name Freq PRN Reason Stop Dose Admin Heparin Sodium (Porcine) 5,000 unit 03/04/17 22:00 Heparin - SQ BID ROSEMARIE Morphine Sulfate 2 mg 03/04/17 14:02 Morphine Injection - IVPUSH Q4H PRN PAIN Home Medications Medication Instructions Recorded Unobtainable 03/04/17 Current Medications Generic Name Dose Route Start Last Admin Trade Name Freq PRN Reason Stop Dose Admin Heparin Sodium (Porcine) 5,000 unit 03/04/17 22:00 Heparin - SQ BID ROSEMARIE Cefazolin Sodium/Dextrose 50 mls @ 100 mls/hr 03/04/17 18:15 03/04/17 18:59 Ancef 2 Gm Premixed Ivpb - IVPB 100 mls/hr Q8H-IV ROSEMARIE Administration Morphine Sulfate 2 mg 03/04/17 14:02 03/04/17 17:34 Morphine Injection - IVPUSH 2 mg Q4H PRN Administration PAIN LLE: swellon with 3 plus edema , good pulses 2 plus, open blisters oozing. rest PE: as per resident's note CXR negative for acute pathologies, positive for cardiomegaly ASSESSMENT AND PLAN: Patient is a 46 M with PMHx of HTN, Borderline DM on metformin and cellulitis presented to ED with left leg swelling with edema and open blisters that were ruptured. Patient was admitted for sepsis secondary to cellulitis. #Sepsis due to LLE cellulitis on Cefazolin and s/p Vanc/Zosyn #Acute cellulitis secondary to chronic venous stasis ;vascular surgery consulted , IV Antibiotics continue #T2DM on metformin 500 mg BID, check A1c, BGM TIDAC #HTN on Metoprolol 25 mg PO daily DvT Px; heparin
[2017-03-04 15:38] LABS: URINE APPEARANCE CLEAR; URINE BILIRUBIN NEGATIVE (NEGATIVE); URINE BLOOD 2+ (NEGATIVE); URINE COLOR DKYELLOW; URINE GLUCOSE (UA) NEGATIVE (NEGATIVE); URINE KETONE NEGATIVE (NEGATIVE); URINE LEUK ESTERASE NEGATIVE (NEGATIVE); URINE NITRITE NEGATIVE (NEGATIVE); URINE UROBILINOGEN 4.0 E.U/dl mg/dL (0.2-1.0)
--- NOTE | 2017-03-04 15:45 | HP ---
CHIEF COMPLAINT: Left leg swelling and pain PCP: HISTORY OF PRESENT ILLNESS: 46 M w/ PMHx HTN, preDM (treated with metformin) and cellulitis presented to ED with left leg swelling and new ruptured blisters. The patient had been to ED 1 week ago for the same complaint and was discharged from the ED with Clindamycin. Pt states that despite taking his medication as directed, his left leg has been worsening. He states that the blisters were not present 1 week ago. Pain is described as 10/10, nonradiating, tight, burning constant pain that is exacerbated with standing or touching. Nothing relieves the pain. Patient stated he never experienced this pain before. He has a past history of cellulitis of the right leg, which was treated with antibiotics over a year ago. Patient states that he uses a pressure pump for his legs to reduce chronic swelling. Patient denies fever, sweating, chills, SOB, chest pain, loss of sensation, muscle weakness. ER course was notable for: (1) leukocytosis, INR 1.27, US negative for DVT, CXR showed cardiomegaly, Tib/ Fib XR negative for pathology, EKG PREETI, long QT and RBBB, VBG (2) Vancomycin/Zosyn, 1L NS (3) Recent Travel: denies PAST MEDICAL HISTORY: HTN, preDM (treated with metformin) and cellulitis PAST SURGICAL HISTORY: Denies Social History: Smoking: denies Alcohol: socially Drugs: remote marijuana Family History: Denies Allergies: No Known Allergies Allergy (Verified 03/04/17 07:06) HOME MEDICATIONS: Home Medications Medication Instructions Recorded Unobtainable 03/04/17 REVIEW OF SYSTEMS CONSTITUTIONAL: Absent: fever, chills, diaphoresis, generalized weakness, malaise, loss of appetite, weight change HEENT: Absent: rhinorrhea, nasal congestion, throat pain, throat swelling, difficulty swallowing, mouth swelling, ear pain, eye pain, visual changes CARDIOVASCULAR: Absent: chest pain, syncope, palpitations, irregular heart rate, lightheadedness , peripheral edema RESPIRATORY: Absent: cough, shortness of breath, dyspnea with exertion, orthopnea, wheezing, stridor, hemoptysis GASTROINTESTINAL: Absent: abdominal pain, abdominal distension, nausea, vomiting, diarrhea, constipation, melena, hematochezia GENITOURINARY: Absent: dysuria, frequency, urgency, hesitancy, hematuria, flank pain, genital pain MUSCULOSKELETAL: Absent: myalgia, arthralgia, joint swelling, back pain, neck pain SKIN: Lower left leg lesion, weeping ulcer Absent: rash, itching, pallor HEMATOLOGIC/IMMUNOLOGIC: Absent: easy bleeding, easy bruising, lymphadenopathy, frequent infections ENDOCRINE: Absent: unexplained weight gain, unexplained weight loss, heat intolerance, cold intolerance NEUROLOGIC: Absent: headache, focal weakness or paresthesias, dizziness, unsteady gait, seizure, mental status changes, bladder or bowel incontinence PSYCHIATRIC: Absent: anxiety, depression, suicidal or homicidal ideation, hallucinations. PHYSICAL EXAMINATION GENERAL: Awake, alert, and fully oriented, in no acute distress. HEAD: Normal with no signs of trauma. EYES: Pupils equal, round and reactive to light, extraocular movements intact, sclera anicteric, conjunctiva clear. No lid lag. EARS, NOSE, THROAT: oropharynx clear without exudates. Moist mucous membranes. NECK: Normal range of motion, supple without lymphadenopathy, JVD, or masses. LUNGS: Breath sounds distant, equal, clear to auscultation bilaterally. No wheezes, and no crackles. No accessory muscle use. HEART: Heart sounds distant, regular rate and rhythm, normal S1 and S2 without murmur, rub or gallop. ABDOMEN: Soft, nontender, not distended, normoactive bowel sounds, no guarding, no rebound, no masses. No hepatomegaly or splenomegaly. Morbid obesity. MUSCULOSKELETAL: Normal range of motion at all joints. No bony deformities or tenderness. No CVA tenderness. UPPER EXTREMITIES: 2+ pulses, warm, well-perfused. No cyanosis. No clubbing. No peripheral edema. LOWER EXTREMITIES: left greater than right size and pitting edema, left sided weeping ruptured blisters, inflamed, warm to the touch, erythematous NEUROLOGICAL: Cranial nerves II-XII intact. Normal speech. Normal gait. PSYCHIATRIC: Cooperative. Good eye contact. Appropriate mood and affect. SKIN: Warm, dry, left leg more edematous than the right, left leg tender to touch, warm, erythematous with blisters and weeping wounds, normal capillary refill. ASSESSMENT/PLAN: 46 M w/ PMHx HTN, preDM (treated with metformin) and cellulitis presented to ED with left leg swelling and new ruptured blisters. Patient was admitted for sepsis secondary to cellulitis. #Sepsis secondary to cellulitis -WBC 25.2, HR 112, left lower leg cellulitis -US negative for DVT -in ED: 1L NS, Vanc/Zosyn, CXR negative for acute pathologies, positive for cardiomegaly -ID consult -blood cultures and urine cultures pending -NS, Vanc/Zosyn -LA pending #Cellulitis secondary to chronic venous stasis -vascular surgery consult #Pre-diabetes -random glucose 104 -patient taking metformin 500 mg BID -check A1c -BGM TIDAC #HTN -most recent BP 114/58 -patient taking Metoprolol 25 mg PO daily -continue regimen #FEN -NS bolus -FU lytes -DM diet #Dispo -admit to [facility] [place] for sepsis Zac Ontiveros MD PGY-1 Kim Stokes MS3 Visit type - Emergency Visit Emergency Visit: No - New Patient This patient is new to me today: No - Critical Care Critical Care patient: No
[2017-03-04 15:57] LABS: URINE PROTEIN 1+ (NEGATIVE)
[2017-03-04 16:23] LABS: URINE MUCUS RARE; URINE RBC 40 /hpf (0-3); URINE WBC 2 /hpf (3-5)
[2017-03-04] MEDS: morphine CARPU-JECT 4 MG/1 ML DISP.SYRIN IVPUSH PRN ×2 (17:34→21:37)
--- NOTE | 2017-03-04 18:12 | PN ---
Progress Note (short form) - Note Progress Note: ID Consult dictated Cellulitis L LE Chronic lymphedema LE Morbid obesity Pending c/s empiric cefazolin Elevation
[2017-03-04] MEDS: CEFAZOLIN 2 GM/D5W 50 ML IVPB SCH (18:59)
[2017-03-04] MEDS: HEPARIN NA (PORCINE) 5,000 UNITS/ML 1ML VIAL SQ SCH (21:37)
[2017-03-04] MEDS ORDERED: HEPARIN NA (PORCINE) 5,000 UNITS/ML 1ML VIAL SQ SCH (22:00)
[2017-03-05] MEDS: CEFAZOLIN 2 GM/D5W 50 ML IVPB SCH (01:25)
[2017-03-05] MEDS: HEPARIN NA (PORCINE) 5,000 UNITS/ML 1ML VIAL SQ SCH ×3 (06:13→22:18)
--- NOTE | 2017-03-05 07:09 | CONS ---
DATE OF CONSULTATION: DATE OF DICTATION: 03/04/2017 HISTORY OF PRESENT ILLNESS: The patient is a 46-year-old morbidly obese male with a history of bilateral lower extremity chronic lymphedema evaluated for cellulitis of the left lower extremity. The patient developed worsening erythema, warmth, and swelling of his left lower extremity and pain on ambulation. He presented to the emergency room on February 27, 2017. He was evaluated and prescribed oral clindamycin. Despite the oral antibiotic therapy, he developed progressively worsening pain, swelling, and erythema of the left leg. He returned to the emergency room where he was noted to be hypotensive and tachycardic. Doppler exam was performed of the leg and was negative for DVT. He was empirically treated with vancomycin and Zosyn. Laboratory data on admission shows a white blood cell count of 25,000 with a left shift. He denies any traumatic injury to his left lower extremity. No reports of insect or animal bites or scratches. He denies prior history of serious soft tissue infection requiring hospitalization or history of MRSA. PAST MEDICAL HISTORY: Positive for morbid obesity, chronic venostasis dermatitis, chronic lymphedema, lower extremities bilaterally, hypertension, a remote history of right lower extremity cellulitis. ALLERGIES: No known allergies. CURRENT MEDICATIONS: Include Zosyn and vancomycin. SOCIAL HISTORY: Lives at home with his significant other. He is a nonsmoker. Occasional ETOH. SYSTEMS REVIEW:Neurologic: No loss of consciousness, seizure activity, or focal weakness. Cardiac: Negative chest pain or palpitations. Respiratory: Negative cough or sputum production. Gastrointestinal: Negative vomiting or diarrhea. Genitourinary: Negative for urinary tract infection. LABORATORY DATA: White count 25.2, left shift, hematocrit 35.3, platelet count 284. BUN 15, creatinine 1.3. Urinalysis: White cells 2. Chest x-ray: Negative for acute infiltrate. Doppler exam: Negative DVT. PHYSICAL EXAMINATION:General: He is awake and alert, in no acute distress. Vital Signs: Temperature 98.2, blood pressure 101/70, pulse 94, regular, respiration 20 per minute. HEENT: Sclerae anicteric. Cardiac: Heart sounds S1, S2. Lungs: Clear. Abdomen: Soft, obese, nontender. Extremities: On examination of the lower extremities, bilateral lower extremity lymphedema with chronic venostasis dermatitis. There is confluent erythema, warmth, and swelling of the right lower extremity from below the knee to the foot. There are 2 shallow ulcerations present on the calf area of the right lower extremity. There is a small area of fluctuance approximately 2 to 3 cm in diameter. No expressible pus. No lymphangitic streaking. IMPRESSION: 1. Cellulitis of the left lower extremity. 2. Chronic lymphedema of the lower extremities bilaterally. 3. Morbid obesity. 4. Possible sepsis secondary to skin infection. RECOMMENDATIONS: Pending cultures, empiric antibiotic coverage with cefazolin 2 g IV piggyback every 8 hours. Elevation. Analgesics. Will follow. Thank you for the kind referral. ROSSY MALDONADO M.D. [id number]
[2017-03-05 07:12] LABS: BASOPHIL 0.4 % (0-2.0); EOSINOPHIL 2.6 % (0-4.5); MCH 27.9 pg (25.7-33.7); MEAN CELL VOLUME 87.3 fl (80-96); MEAN PLT VOLUME 9.2 fl (7.5-11.1); NEUTROPHILS 79.8 % (42.8-82.8); PLATELET COUNT 304 K/MM3 (134-434); WHITE BLOOD COUNT 17.3 K/mm3 (4.0-10.0)
[2017-03-05 07:36] LABS: ALBUMIN 2.2 g/dl (3.4-5.0); ANION GAP 8 (8-16); CALCIUM 8.2 mg/dL (8.5-10.1); CO2 34 mmol/L (21-32); CREATININE 1.2 mg/dL (0.7-1.3); GLUCOSE,RANDOM 118 mg/dL (74-106); MAGNESIUM 2.4 mg/dL (1.8-2.4); PHOSPHOROUS 3.9 mg/dL (2.5-4.9); SGOT/AST 12 U/L (15-37); SGPT/ALT 17 U/L (12-78)
[2017-03-05 07:38] LABS: ALK PHOS 101 U/L (45-117); BILIRUBIN,TOTAL 0.8 mg/dL (0.2-1.0); TOT PROT 6.6 g/dl (6.4-8.2)
[2017-03-05 07:39] LABS: INR 1.28 (0.82-1.09); PROTHROMBIN TIME (PATIENT) 14.2 SEC (9.98-11.88)
[2017-03-05 07:42] LABS: ACTIVATED PTT 31.2 SECONDS (26.9-34.4)
[2017-03-05] MEDS ORDERED: POTASSIUM CHLORIDE TABS 20 MEQ TABLET.ER (FP) PO ONE ×2 (08:48→11:45)
--- NOTE | 2017-03-05 09:02 | PN ---
Progress Note (short form) - Note Progress Note: c/o painful collection on back of left leg- some drainage on his sheets noted Vital Signs Period Temp Pulse Resp BP Sys/Clark Pulse Ox Last 24 Hr 97.9 F-98.3 F 90-96 18-20 101-147/63-84 97-97 cor-rrr lungs clear abd soft,nt ext +erythema, +warmth LLE with fluctuant mass with small ulcerations on posterior leg CBC, BMP 03/05/17 06:00 03/05/17 06:00 Microbiology 03/04/17 08:15 Blood - Peripheral Venous Blood Culture - Preliminary NO GROWTH OBTAINED AFTER 24 HOURS, INCUBATION TO CONTINUE FOR 4 DAYS. 03/04/17 08:15 Blood - Peripheral Venous Blood Culture - Preliminary NO GROWTH OBTAINED AFTER 24 HOURS, INCUBATION TO CONTINUE FOR 4 DAYS. a/p soft tissue infection of left leg morbid obesity agree with surgical eval, ?abscess switch to ceftaroline-added empiric MRSA coverage wound culture of drainage sent
[2017-03-05] MEDS: CEFTAROLINE FOSAMIL ACETATE 600 MG in DEXTROSE 5%-WATER - 250 ML IVPB SCH ×2 (10:57→22:18)
[2017-03-05] MEDS: morphine CARPU-JECT 4 MG/1 ML DISP.SYRIN IVPUSH PRN ×2 (14:39→22:20)
[2017-03-05] MEDS ORDERED: INSULIN SLIDING SCALE (NOVOLOG) 1 VIAL SQ SCH ×2 (16:30)
[2017-03-05] MEDS: INSULIN SLIDING SCALE (NOVOLOG) 1 VIAL SQ SCH ×2 (17:42→22:17)
--- NOTE | 2017-03-05 18:13 | PN ---
Teaching Attending Note Name of Resident: Zac Ontiveros ATTENDING PHYSICIAN STATEMENT I saw and evaluated the patient. I reviewed the resident's note and discussed the case with the resident. I agree with the resident's findings and plan as documented. SUBJECTIVE: no fever or chills , has pain in LLE , has no CP OBJECTIVE: NAD CV: RRR Lungs : CTAB Ext: LLE with blisters, increased warmth , and tenderness . increased circumference . ASSESSMENT AND PLAN: 46 y/o man withh/o HTN, DM , and previous cellulitis who presented with increased pain and edema in LLE and was found to have acute cellulitis in LLE 1- LLE cellulitis: with blisters. no DVT or subcutaneous gas . - abx : ceftaroline - follow cx . 2- DM : on metformin at home - SSI here 3- hypokalemia : replete . HLOC
--- NOTE | 2017-03-05 18:35 | PN ---
Physical Exam: SUBJECTIVE: Patient seen and examined at bedside. Pt states leg pain is still present but decreased to 4/10. No headache, feer, chills, cp, sob, sweating, ausea, vomitin, diarrhea, constipation. OBJECTIVE: Vital Signs Period Temp Pulse Resp BP Sys/Clark Pulse Ox Last 24 Hr 97.5 F-98.3 F 93-98 16-20 126-144/67-82 97-97 GENERAL: The patient is awake, alert, and fully oriented, in no acute distress. HEAD: Normal with no signs of trauma. EYES: sclera anicteric, conjunctiva clear. No ptosis. ENT: ropharynx clear without exudates, moist mucous membranes. NECK: Trachea midline, full range of motion, supple. LUNGS: Breath sounds equal, clear to auscultation bilaterally, no wheezes, no crackles, no accessory muscle use. HEART: Regular rate and rhythm, S1, S2 without murmur, rub or gallop. ABDOMEN: Morbidly obese, Soft, nontender, nondistended, normoactive bowel sounds , no guarding, no rebound, no hepatosplenomegaly, no masses. EXTREMITIES: 2+ pulses, warm, well-perfused, Left leg swelling with weeping open sores and multiple blisters NEUROLOGICAL: Cranial nerves II through XII grossly intact. Normal speech, gait not observed. PSYCH: Normal mood, normal affect. SKIN: Warm, dry, normal turgor, no rashes or lesions noted Laboratory Results - last 24 hr 03/04/17 03/05/17 03/05/17 15:25 06:00 06:00 WBC 17.3 H D RBC 3.95 L Hgb 11.0 L Hct 34.4 L MCV 87.3 MCH 27.9 MCHC 32.0 RDW 16.0 H Plt Count 304 MPV 9.2 Neutrophils % 79.8 Lymphocytes % 8.9 D Monocytes % 8.3 Eosinophils % 2.6 D Basophils % 0.4 D INR 1.28 H PTT (Actin FS) 31.2 Sodium Potassium Chloride Carbon Dioxide Anion Gap BUN Creatinine Creat Clearance w eGFR POC Glucometer Random Glucose Hemoglobin A1c % Calcium Phosphorus Magnesium Total Bilirubin AST ALT Alkaline Phosphatase Total Protein Albumin Urine Color Dkyellow Urine Appearance Clear Urine pH 5.0 Ur Specific [place] 1.015 Urine Protein 1+ H Urine Glucose (UA) Negative Urine Ketones Negative Urine Blood 2+ H Urine Nitrite Negative Urine Bilirubin Negative Urine Urobilinogen 4.0 e.u/dl Ur Leukocyte Esterase Negative Urine RBC 40 Urine WBC 2 Ur Epithelial Cells Rare Urine Mucus Rare 03/05/17 03/05/17 03/05/17 06:00 06:00 17:40 WBC RBC Hgb Hct MCV MCH MCHC RDW Plt Count MPV Neutrophils % Lymphocytes % Monocytes % Eosinophils % Basophils % INR PTT (Actin FS) Sodium 138 Potassium 3.1 L Chloride 96 L Carbon Dioxide 34 H Anion Gap 8 BUN 11 D Creatinine 1.2 Creat Clearance w eGFR > 60 POC Glucometer 90 Random Glucose 118 H Hemoglobin A1c % 6.9 H Calcium 8.2 L Phosphorus 3.9 Magnesium 2.4 Total Bilirubin 0.8 AST 12 L D ALT 17 Alkaline Phosphatase 101 Total Protein 6.6 Albumin 2.2 L Urine Color Urine Appearance Urine pH Ur Specific [place] Urine Protein Urine Glucose (UA) Urine Ketones Urine Blood Urine Nitrite Urine Bilirubin Urine Urobilinogen Ur Leukocyte Esterase Urine RBC Urine WBC Ur Epithelial Cells Urine Mucus Active Medications Generic Name Dose Route Start Last Admin Trade Name Freq PRN Reason Stop Dose Admin Heparin Sodium (Porcine) 5,000 unit 03/04/17 22:00 03/05/17 14:36 Heparin - SQ 5,000 unit TID [facility] Administration Ceftaroline Fosamil 600 mg/ 250 mls @ 200 mls/hr 03/05/17 10:00 03/05/17 10:57 Dextrose IVPB 200 mls/hr BID ROSEMARIE Administration Protocol Insulin Aspart 1 vial 03/05/17 16:30 03/05/17 17:42 Novolog Vial Sliding Scale - SQ Not Given ACHS [facility] Protocol Morphine Sulfate 2 mg 03/04/17 14:02 03/05/17 14:39 Morphine Injection - IVPUSH 2 mg Q4H PRN Administration PAIN ASSESSMENT/PLAN: 46 M w/ PMHx HTN, preDM (treated with metformin) and cellulitis presented to ED with left leg swelling and new ruptured blisters. Patient was admitted for sepsis secondary to cellulitis. #Sepsis secondary to cellulitis -WBC 25.2, HR 112, left lower leg cellulitis -US negative for DVT -in ED: 1L NS, Vanc/Zosyn, CXR negative for acute pathologies, positive for cardiomegaly -ID, sent wound culture -blood cultures and urine cultures neg so far -Ceftaroline -LA 1.0 #Cellulitis secondary to chronic venous stasis -vascular surgery consult #Pre-diabetes -A1c 6.9% -Novolog ISS -DM diet -BGM TIDAC #HTN -patient taking Metoprolol 25 mg PO daily -continue regimen #FEN -not on fluid -lytes wnl -DM diet #Dispo -admit to [facility] for [facility] Zac Ontiveros MD PGY-1 Kim Stokes MS3 Visit type - Emergency Visit Emergency Visit: No - New Patient This patient is new to me today: No - Critical Care Critical Care patient: No - Discharge Referral Referred to [facility] Med P.C[facility] No
[2017-03-05] MEDS ORDERED: PT OWN MED DRAWER 7, Y5N ONE (21:15)
[2017-03-06] MEDS: HEPARIN NA (PORCINE) 5,000 UNITS/ML 1ML VIAL SQ SCH ×3 (06:01→21:14)
[2017-03-06] MEDS: INSULIN SLIDING SCALE (NOVOLOG) 1 VIAL SQ SCH ×4 (06:18→21:26)
[2017-03-06 07:49] LABS: BASOPHIL 0.4 % (0-2.0); EOSINOPHIL 1.9 % (0-4.5); MCHC 32.1 g/dl (32.0-35.9); MEAN CELL VOLUME 87.4 fl (80-96); MEAN PLT VOLUME 9.4 fl (7.5-11.1); NEUTROPHILS 76.8 % (42.8-82.8); PLATELET COUNT 359 K/MM3 (134-434); RDW 15.8 % (11.9-15.9); WHITE BLOOD COUNT 15.5 K/mm3 (4.0-10.0)
--- NOTE | 2017-03-06 08:37 | PN ---
Progress Note, Physician Chief Complaint: ID Ceftaroline currently empiric c/s pending - Current Medication List Current Medications: Active Medications Heparin Sodium (Porcine) (Heparin -) 5,000 unit SQ TID [facility] Last Admin: 03/06/17 06:01 Dose: 5,000 unit Ceftaroline Fosamil 600 mg/ (Dextrose) 250 mls @ 200 mls/hr IVPB BID ROSEMARIE PRN Reason: Protocol Last Admin: 03/05/17 22:18 Dose: 200 mls/hr Insulin Aspart (Novolog Vial Sliding Scale -) 1 vial SQ ACHS ROSEMARIE PRN Reason: Protocol Last Admin: 03/06/17 06:18 Dose: Not Given Morphine Sulfate (Morphine Injection -) 2 mg IVPUSH Q4H PRN PRN Reason: PAIN Last Admin: 03/05/17 22:20 Dose: 2 mg - Objective Vital Signs: Vital Signs Temperature 98.6 F 03/06/17 06:30 Pulse Rate 99 H 03/06/17 06:30 Respiratory Rate 20 03/06/17 06:30 Blood Pressure 136/94 03/06/17 06:30 O2 Sat by Pulse Oximetry (%) 97 03/05/17 21:00 Constitutional: Yes: Obese Neck: Yes: WNL, Supple Cardiovascular: Yes: Regular Rate and Rhythm, S1, S2. No: Murmur Respiratory: Yes: WNL, Regular, CTA Bilaterally Gastrointestinal: Yes: WNL, Normal Bowel Sounds, Soft Extremities: Yes: Other (LEft leg swelling open sores blisters) Labs: CBC, BMP 03/06/17 06:00 INR, PTT INR 1.28 (0.82-1.09) H 03/05/17 06:00 Assessment/Plan Microbiology 03/05/17 09:50 Ulcer Gram Stain - Final 03/04/17 08:15 Blood - Peripheral Venous Blood Culture - Preliminary NO GROWTH OBTAINED AFTER 24 HOURS, INCUBATION TO CONTINUE FOR 4 DAYS. 03/04/17 08:15 Blood - Peripheral Venous Blood Culture - Preliminary NO GROWTH OBTAINED AFTER 24 HOURS, INCUBATION TO CONTINUE FOR 4 DAYS. Laboratory Tests 03/04/17 03/05/17 03/05/17 08:15 06:00 06:00 WBC 25.2 H D 17.3 H D Hgb Hct Plt Count BUN 11 D Creatinine 1.2 03/06/17 03/06/17 06:00 06:00 WBC 15.5 H Hgb 11.6 L Hct 36.0 Plt Count 359 BUN Pending Creatinine Pending Assessment Cellulitis of leg Morbid obesity Plan Continue antibiotic as ordered c/s pending William GARCIA
[2017-03-06 08:43] LABS: ALBUMIN 2.2 g/dl (3.4-5.0); ALK PHOS 109 U/L (45-117); ANION GAP 9 (8-16); BILIRUBIN,TOTAL 0.9 mg/dL (0.2-1.0); CO2 32 mmol/L (21-32); CREATININE 1.1 mg/dL (0.7-1.3); GLUCOSE,RANDOM 97 mg/dL (74-106); SGOT/AST 13 U/L (15-37); SGPT/ALT 17 U/L (12-78); TOT PROT 7.1 g/dl (6.4-8.2)
[2017-03-06] MEDS: CEFTAROLINE FOSAMIL ACETATE 600 MG in DEXTROSE 5%-WATER - 250 ML IVPB SCH ×2 (10:05→21:20)
--- NOTE | 2017-03-06 13:41 | PN ---
Teaching Attending Note Name of Resident: Zac Ontiveros ATTENDING PHYSICIAN STATEMENT I saw and evaluated the patient. I reviewed the resident's note and discussed the case with the resident. I agree with the resident's findings and plan as documented. SUBJECTIVE: no fever or chills, feels better . OBJECTIVE: NAD CV: RRR Lungs : CTAB Ext: LLE with blisters, increased warmth , and tenderness . increased circumference . stable compared to yesterdya ASSESSMENT AND PLAN: 46 y/o man withh/o HTN, DM , and previous cellulitis who presented with increased pain and edema in LLE and was found to have acute cellulitis in LLE 1- LLE cellulitis: with blisters. Leukocytosis improved - COnt ceftaroline - follow cx - obtain Soft tissue US to r/o abscess of posterior leg . 2- DM : on metformin at home - SSI here 3- Hypokalemia : resolved . DVT Px
[2017-03-06] MEDS: METOPROLOL TARTRATE 25 MG TABLET (FP) PO SCH (14:53)
[2017-03-06] MEDS: morphine CARPU-JECT 4 MG/1 ML DISP.SYRIN IVPUSH PRN ×2 (15:11→22:33)
--- NOTE | 2017-03-06 17:26 | PN ---
Physical Exam: SUBJECTIVE: Patient seen and examined at bedside. Pt states leg pain is still present but improving. No headache, feer, chills, cp, sob, sweating, ausea, vomitin, diarrhea, constipation. OBJECTIVE: Vital Signs Period Temp Pulse Resp BP Sys/Clark Pulse Ox Last 24 Hr 98.2 F-99 F 80-99 18-20 132-142/72-94 92-97 GENERAL: The patient is awake, alert, and fully oriented, in no acute distress. HEAD: Normal with no signs of trauma. EYES: sclera anicteric, conjunctiva clear. No ptosis. ENT: ropharynx clear without exudates, moist mucous membranes. NECK: Trachea midline, full range of motion, supple. LUNGS: Breath sounds equal, clear to auscultation bilaterally, no wheezes, no crackles, no accessory muscle use. HEART: Regular rate and rhythm, S1, S2 without murmur, rub or gallop. ABDOMEN: Morbidly obese, Soft, nontender, nondistended, normoactive bowel sounds , no guarding, no rebound, no hepatosplenomegaly, no masses. EXTREMITIES: 2+ pulses, warm, well-perfused, Left leg swelling with weeping open sores and multiple blisters NEUROLOGICAL: Cranial nerves II through XII grossly intact. Normal speech, gait not observed. PSYCH: Normal mood, normal affect. SKIN: Warm, dry, normal turgor, no rashes or lesions noted Laboratory Results - last 24 hr 03/05/17 03/05/17 03/06/17 17:40 22:16 05:43 WBC RBC Hgb Hct MCV MCH MCHC RDW Plt Count MPV Neutrophils % Lymphocytes % Monocytes % Eosinophils % Basophils % Sodium Potassium Chloride Carbon Dioxide Anion Gap BUN Creatinine Creat Clearance w eGFR POC Glucometer 90 106 110 Random Glucose Calcium Total Bilirubin AST ALT Alkaline Phosphatase Total Protein Albumin 03/06/17 03/06/17 06:00 06:00 WBC 15.5 H RBC 4.12 Hgb 11.6 L Hct 36.0 MCV 87.4 MCH 28.0 MCHC 32.1 RDW 15.8 Plt Count 359 MPV 9.4 Neutrophils % 76.8 Lymphocytes % 10.5 Monocytes % 10.4 H Eosinophils % 1.9 Basophils % 0.4 Sodium 137 Potassium 3.7 Chloride 96 L Carbon Dioxide 32 Anion Gap 9 BUN 8 D Creatinine 1.1 Creat Clearance w eGFR > 60 POC Glucometer Random Glucose 97 Calcium 9.0 Total Bilirubin 0.9 AST 13 L ALT 17 Alkaline Phosphatase 109 Total Protein 7.1 Albumin 2.2 L Active Medications Generic Name Dose Route Start Last Admin Trade Name Freq PRN Reason Stop Dose Admin Heparin Sodium (Porcine) 5,000 unit 03/04/17 22:00 03/06/17 14:52 Heparin - SQ 5,000 unit TID ROSEMARIE Administration Ceftaroline Fosamil 600 mg/ 250 mls @ 200 mls/hr 03/05/17 10:00 03/06/17 10:05 Dextrose IVPB 200 mls/hr BID ROSEMARIE Administration Protocol Insulin Aspart 1 vial 03/05/17 16:30 03/06/17 13:22 Novolog Vial Sliding Scale - SQ Not Given ACHS [facility] Protocol Metoprolol Tartrate 25 mg 03/06/17 12:00 03/06/17 14:53 Lopressor - PO 25 mg DAILY ROSEMARIE Administration Morphine Sulfate 2 mg 03/04/17 14:02 03/06/17 15:11 Morphine Injection - IVPUSH 2 mg Q4H PRN Administration PAIN ASSESSMENT/PLAN: 46 M w/ PMHx HTN, preDM (treated with metformin) and cellulitis presented to ED with left leg swelling and new ruptured blisters. Patient was admitted for sepsis secondary to cellulitis. #Sepsis secondary to cellulitis -WBC 25.2, HR 112, left lower leg cellulitis -US negative for DVT -soft tissue US neg for abscess -in ED: 1L NS, Vanc/Zosyn, CXR negative for acute pathologies, positive for cardiomegaly -ID, sent wound culture -blood cultures and urine cultures neg so far -Ceftaroline #Cellulitis secondary to chronic venous stasis -vascular surgery consult #diabetes -A1c 6.9% -Novolog ISS -DM diet -BGM TIDAC #HTN -patient taking Metoprolol 25 mg PO daily -continue regimen #FEN -not on fluid -lytes wnl -DM diet #Dispo -admit to [facility] for sepsis Zac Ontiveros MD PGY-1 Kim Stokes MS3 Visit type - Emergency Visit Emergency Visit: No - New Patient This patient is new to me today: No - Critical Care Critical Care patient: No - Discharge Referral Referred to [facility] Med P.C.: No
[2017-03-06] MEDS ORDERED: PT OWN MED DRAWER 7, Y5N ONE (21:17)
[2017-03-07] MEDS: HEPARIN NA (PORCINE) 5,000 UNITS/ML 1ML VIAL SQ SCH ×3 (05:53→21:03)
[2017-03-07] MEDS: INSULIN SLIDING SCALE (NOVOLOG) 1 VIAL SQ SCH ×4 (06:13→21:09)
[2017-03-07 08:38] LABS: BASOPHIL 0.6 % (0-2.0); EOSINOPHIL 2.2 % (0-4.5); MCHC 31.8 g/dl (32.0-35.9); MEAN CELL VOLUME 88.1 fl (80-96); MEAN PLT VOLUME 9.2 fl (7.5-11.1); NEUTROPHILS 72.4 % (42.8-82.8); PLATELET COUNT 355 K/MM3 (134-434); RDW 15.8 % (11.9-15.9); WHITE BLOOD COUNT 12.9 K/mm3 (4.0-10.0)
[2017-03-07 08:55] LABS: ALBUMIN 2.2 g/dl (3.4-5.0); ANION GAP 10 (8-16); CALCIUM 8.5 mg/dL (8.5-10.1); CO2 32 mmol/L (21-32); CREATININE 1.1 mg/dL (0.7-1.3); GLUCOSE,RANDOM 94 mg/dL (74-106); SGOT/AST 18 U/L (15-37); SGPT/ALT 19 U/L (12-78)
[2017-03-07 08:57] LABS: ALK PHOS 100 U/L (45-117); BILIRUBIN,TOTAL 0.7 mg/dL (0.2-1.0); TOT PROT 7.1 g/dl (6.4-8.2)
--- NOTE | 2017-03-07 09:12 | PN ---
Progress Note (short form) - Note Progress Note: c/o painful collection on back of left leg- some drainage on his sheets noted reports some improvement in erythema and swelling Vital Signs Period Temp Pulse Resp BP Sys/Clark Pulse Ox Last 24 Hr 98.2 F-98.8 F 80-92 18-18 132-135/72-75 92-95 cor-rrr lungs clear abd soft,nt ext less erythema and warmth left leg +painful mass posterior aspect of lower left leg CBC, BMP 03/07/17 07:15 cbc pending sonogram no abscess, +STS Microbiology 03/04/17 08:15 Blood - Peripheral Venous Blood Culture - Preliminary NO GROWTH OBTAINED AFTER 72 HOURS, INCUBATION TO CONTINUE FOR 2 DAYS. 03/04/17 08:15 Blood - Peripheral Venous Blood Culture - Preliminary NO GROWTH OBTAINED AFTER 72 HOURS, INCUBATION TO CONTINUE FOR 2 DAYS. 03/05/17 09:50 Ulcer Gram Stain - Final 03/05/17 09:50 Ulcer Wound Culture - Preliminary NO GROWTH OBTAINED AFTER 24 HOURS INCUBATION, REINCUBATED. 03/04/17 07:42 Urine - Urine Clean Catch Urine Culture - Final NO GROWTH OBTAINED a/p soft tissue infection of left leg morbid obesity continue ceftaroline suspect abscess is evolving in lower leg and will ultimately need drainage
[2017-03-07] MEDS ORDERED: PT OWN MED DRAWER 7, Y5N ONE ×2 (10:33→20:54)
[2017-03-07] MEDS: METOPROLOL TARTRATE 25 MG TABLET (FP) PO SCH (10:39)
[2017-03-07] MEDS: CEFTAROLINE FOSAMIL ACETATE 600 MG in DEXTROSE 5%-WATER - 250 ML IVPB SCH ×2 (10:39→21:02)
--- NOTE | 2017-03-07 13:09 | PN ---
Teaching Attending Note Name of Resident: Zac Ontiveros ATTENDING PHYSICIAN STATEMENT I saw and evaluated the patient. I reviewed the resident's note and discussed the case with the resident. I agree with the resident's findings and plan as documented. SUBJECTIVE: no fever or chills feels better but frustrated. OBJECTIVE: NAD CV: RRR Lungs : CTAB Ext: LLE with blisters, less warm than yesterday ,still has tenderness . increased circumference . the bigger blister on bower is draining now . the posterior calf with oozing wound and raised tender area ASSESSMENT AND PLAN: 46 y/o man with h/o HTN, DM , and previous cellulitis who presented with increased pain and edema in LLE and was found to have acute cellulitis in LLE 1- LLE cellulitis:Leukocytosis improved and has no fever No abscess on US - Cont ceftaroline - follow cx 2- DM : on metformin at home - SSI here 3- Hypokalemia : resolved . DVT Px
[2017-03-07] MEDS: morphine CARPU-JECT 4 MG/1 ML DISP.SYRIN IVPUSH PRN ×2 (15:51→21:10)
--- NOTE | 2017-03-07 19:48 | PN ---
Physical Exam: SUBJECTIVE: Patient seen and examined at bedside. Pt states leg pain is still present but improving. No headache, fever, chills, cp, sob, sweating, ausea, vomitin, diarrhea, constipation. OBJECTIVE: Vital Signs Period Temp Pulse Resp BP Sys/Clark Pulse Ox Last 24 Hr 98.4 F-98.8 F 88-93 16-18 132-154/71-94 95-97 GENERAL: The patient is awake, alert, and fully oriented, in no acute distress. HEAD: Normal with no signs of trauma. EYES: sclera anicteric, conjunctiva clear. No ptosis. ENT: ropharynx clear without exudates, moist mucous membranes. NECK: Trachea midline, full range of motion, supple. LUNGS: Breath sounds equal, clear to auscultation bilaterally, no wheezes, no crackles, no accessory muscle use. HEART: Regular rate and rhythm, S1, S2 without murmur, rub or gallop. ABDOMEN: Morbidly obese, Soft, nontender, nondistended, normoactive bowel sounds , no guarding, no rebound, no hepatosplenomegaly, no masses. EXTREMITIES: 2+ pulses, warm, well-perfused, Left leg swelling with non weeping open sores and multiple blisters NEUROLOGICAL: Cranial nerves II through XII grossly intact. Normal speech, gait not observed. PSYCH: Normal mood, normal affect. SKIN: Warm, dry, normal turgor, no rashes or lesions noted Laboratory Results - last 24 hr 03/06/17 03/07/17 03/07/17 21:25 05:52 07:15 WBC 12.9 H RBC 3.95 L Hgb 11.1 L Hct 34.8 L MCV 88.1 MCH 28.0 MCHC 31.8 L RDW 15.8 Plt Count 355 MPV 9.2 Neutrophils % 72.4 Lymphocytes % 14.4 D Monocytes % 10.4 H Eosinophils % 2.2 Basophils % 0.6 Sodium Potassium Chloride Carbon Dioxide Anion Gap BUN Creatinine Creat Clearance w eGFR POC Glucometer 111 83 Random Glucose Calcium Total Bilirubin AST ALT Alkaline Phosphatase Total Protein Albumin 03/07/17 03/07/17 07:15 17:44 WBC RBC Hgb Hct MCV MCH MCHC RDW Plt Count MPV Neutrophils % Lymphocytes % Monocytes % Eosinophils % Basophils % Sodium 136 Potassium 3.7 Chloride 94 L Carbon Dioxide 32 Anion Gap 10 BUN 9 Creatinine 1.1 Creat Clearance w eGFR > 60 POC Glucometer 100 Random Glucose 94 Calcium 8.5 Total Bilirubin 0.7 D AST 18 D ALT 19 Alkaline Phosphatase 100 Total Protein 7.1 Albumin 2.2 L Active Medications Generic Name Dose Route Start Last Admin Trade Name Freq PRN Reason Stop Dose Admin Heparin Sodium (Porcine) 5,000 unit 03/04/17 22:00 03/07/17 14:12 Heparin - SQ 5,000 unit TID ROSEMARIE Administration Ceftaroline Fosamil 600 mg/ 250 mls @ 200 mls/hr 03/05/17 10:00 03/07/17 10:39 Dextrose IVPB 200 mls/hr BID ROSEMARIE Administration Protocol Insulin Aspart 1 vial 03/05/17 16:30 03/07/17 18:11 Novolog Vial Sliding Scale - SQ Not Given ACHS [facility] Protocol Metoprolol Tartrate 25 mg 03/06/17 12:00 03/07/17 10:39 Lopressor - PO 25 mg DAILY ROSEMARIE Administration Morphine Sulfate 2 mg 03/04/17 14:02 03/07/17 15:51 Morphine Injection - IVPUSH 2 mg Q4H PRN Administration PAIN ASSESSMENT/PLAN: 46 M w/ PMHx HTN, DM (treated with metformin) and cellulitis presented to ED with left leg swelling and new ruptured blisters. Patient was admitted for sepsis secondary to cellulitis. #Sepsis secondary to cellulitis -WBC 25.2, HR 112, left lower leg cellulitis -US negative for DVT -soft tissue US neg for abscess -in ED: 1L NS, Vanc/Zosyn, CXR negative for acute pathologies, positive for cardiomegaly -ID, sent wound culture -blood cultures and urine cultures neg so far -Ceftaroline -surgery consult for eval of possible abscess #diabetes -A1c 6.9% -Novolog ISS -DM diet -BGM TIDAC #HTN -patient taking Metoprolol -continue regimen #FEN -not on fluid -lytes wnl -DM diet #[facility] Zac Ontiveros MD PGY-1 Kim Stokes MS3 Visit type - Emergency Visit Emergency Visit: No - New Patient This patient is new to me today: No - Critical Care Critical Care patient: No - Discharge Referral Referred to [facility] Med P.C.: No
[2017-03-08] MEDS: HEPARIN NA (PORCINE) 5,000 UNITS/ML 1ML VIAL SQ SCH ×3 (06:05→21:42)
[2017-03-08] MEDS: INSULIN SLIDING SCALE (NOVOLOG) 1 VIAL SQ SCH ×2 (06:06→13:52)
[2017-03-08 08:06] LABS: MCH 28.1 pg (25.7-33.7); MEAN CELL VOLUME 87.8 fl (80-96); MEAN PLT VOLUME 9.4 fl (7.5-11.1); PLATELET COUNT 350 K/MM3 (134-434); RDW 15.8 % (11.9-15.9); WHITE BLOOD COUNT 11.4 K/mm3 (4.0-10.0)
[2017-03-08] MEDS ORDERED: LISINOPRIL 20 MG TABLET (FP) PO SCH (10:00)
[2017-03-08] MEDS: CEFTAROLINE FOSAMIL ACETATE 600 MG in DEXTROSE 5%-WATER - 250 ML IVPB SCH ×2 (10:53→21:42)
[2017-03-08] MEDS: METOPROLOL TARTRATE 25 MG TABLET (FP) PO SCH (10:53)
--- NOTE | 2017-03-08 11:53 | PN ---
Teaching Attending Note Name of Resident: Susan Loyola ATTENDING PHYSICIAN STATEMENT I saw and evaluated the patient. I reviewed the resident's note and discussed the case with the resident. I agree with the resident's findings and plan as documented. SUBJECTIVE: no fever or chills. still has pain in LLE barbara when he walks OBJECTIVE: NAD CV: RRR Lungs : CTAB Ext: LLE with blisters, less warm, still has tenderness . increased circumference . the bigger blister on bower is draining now . the posterior calf with oozing wound and raised tender area ASSESSMENT AND PLAN: 46 y/o man with h/o HTN, DM , and previous cellulitis who presented with increased pain and edema in LLE and was found to have acute cellulitis in LLE 1- LLE cellulitis: Leukocytosis cont to improve and has no fever No abscess on US - Cont ceftaroline - wound cx no growth and blood cx neg x96 h - surgery was called, no surgical intervention needed 2- DM : on metformin at home sugar has been NL. change BGMs to daily 3- HTN: change metorpolol to 20 of lisinopril . up-titrate as needed 3- Hypokalemia : resolved . DVT Px
--- NOTE | 2017-03-08 14:12 | PN ---
Progress Note, Physician History of Present Illness: Complains of leg pain with ambulation No c/o fever/ chills Tolerating antibiotics No adverse rxn - Current Medication List Current Medications: Active Medications Heparin Sodium (Porcine) (Heparin -) 5,000 unit SQ TID ROSEMARIE Last Admin: 03/08/17 06:05 Dose: 5,000 unit Ceftaroline Fosamil 600 mg/ (Dextrose) 250 mls @ 200 mls/hr IVPB BID ROSEMARIE PRN Reason: Protocol Last Admin: 03/08/17 10:53 Dose: 200 mls/hr Insulin Aspart (Novolog Vial Sliding Scale -) 1 vial SQ ACBK ROSEMARIE PRN Reason: Protocol Lisinopril (Prinivil) 20 mg PO DAILY ROSEMARIE Morphine Sulfate (Morphine Injection -) 2 mg IVPUSH Q4H PRN PRN Reason: PAIN Last Admin: 03/07/17 21:10 Dose: 2 mg - Objective Vital Signs: Vital Signs Temperature 98.5 F 03/08/17 09:09 Pulse Rate 84 03/08/17 09:09 Respiratory Rate 16 03/08/17 09:09 Blood Pressure 176/99 03/08/17 09:09 O2 Sat by Pulse Oximetry (%) 97 03/08/17 09:00 Constitutional: Yes: No Distress, Obese Eyes: Yes: Conjunctiva Clear Cardiovascular: Yes: Regular Rate and Rhythm, S1, S2 Respiratory: Yes: CTA Bilaterally Gastrointestinal: Yes: Normal Bowel Sounds, Soft. No: Tenderness Extremities: Yes: Other (+ bilateral LE lymphedema decreased erythema/ warmth L LE + small pustule anterior tibia, fluctuant area distal calf) Edema: Yes Labs: CBC, BMP 03/08/17 06:00 03/07/17 07:15 INR, PTT INR 1.28 (0.82-1.09) H 03/05/17 06:00 Assessment/Plan Cellulitis L LE- improved Organizing abscess L calf Chronic LE lymphedema Morbid obesity Continue empiric ceftaroline
[2017-03-08] MEDS: LISINOPRIL 20 MG TABLET (FP) PO SCH (14:15)
[2017-03-08] MEDS ORDERED: PT OWN MED DRAWER 7, Y5N ONE (20:47)
[2017-03-08] MEDS: morphine CARPU-JECT 4 MG/1 ML DISP.SYRIN IVPUSH PRN (21:42)
--- NOTE | 2017-03-08 22:34 | PN ---
Physical Exam: SUBJECTIVE: Patient seen and examined by me at bedside. Patient reports when he walks the pain on his leg worsens. Otherwise, patient denies fever, chills, nausea, vomiting, chest pain, palpitations, shortness of breath, headaches. OBJECTIVE: Vital Signs Period Temp Pulse Resp BP Sys/Clark Pulse Ox Last 24 Hr 98.0 F-98.9 F 80-99 16-18 102-176/70-99 97 GENERAL: The patient is awake, alert, and fully oriented, in no acute distress. LUNGS: CTA Bilaterally. No wheezes or crackles appreciated HEART: RRR, normal S1 and S2, without murmur, rub or gallop. ABDOMEN: Soft, obese, non-tender, non-distended, normoactive bowel sounds. EXTREMITIES:Bilateral chronic lymphedema. Left leg erythema, warmth with multiple small pustules in the anterior tibia with one draining ulceration. Posterior calf ulceration with drainage. Laboratory Results - last 24 hr 03/08/17 03/08/17 06:00 06:05 WBC 11.4 H RBC 4.02 Hgb 11.3 L Hct 35.3 L MCV 87.8 MCH 28.1 MCHC 32.0 RDW 15.8 Plt Count 350 MPV 9.4 POC Glucometer 97 Active Medications Generic Name Dose Route Start Last Admin Trade Name Freq PRN Reason Stop Dose Admin Heparin Sodium (Porcine) 5,000 unit 03/04/17 22:00 03/08/17 21:42 Heparin - SQ 5,000 unit TID ROSEMARIE Administration Ceftaroline Fosamil 600 mg/ 250 mls @ 200 mls/hr 03/05/17 10:00 03/08/17 21:42 Dextrose IVPB 200 mls/hr BID ROSEMARIE Administration Protocol Insulin Aspart 1 vial 03/09/17 07:00 Novolog Vial Sliding Scale - SQ ACBK [facility] Protocol Lisinopril 20 mg 03/08/17 13:00 03/08/17 14:15 Prinivil PO 20 mg DAILY ROSEMARIE Administration Morphine Sulfate 2 mg 03/04/17 14:02 03/08/17 21:42 Morphine Injection - IVPUSH 2 mg Q4H PRN Administration PAIN ASSESSMENT/PLAN: Patient is a 47 year old male with a PMHx of NIDDMII and HTN who presented with increased pain, edema and warmth of LLE and was found to have cellulitis of Left lower extremity. Patient admitted for further monitoring and management. Lower Left Leg Cellulites -U/S negative for abscess -Duplex negative for DVT -Wound and blood cultures negative -Continue Ceftaroline 600mg IVPB BID -Continue pain control with Morphine 2mg IVP Q4H PRN -Surgery consulted and do not believe its necessary for any surgical intervention at this time as there is no abscess. -ID consult appreciated NIDDMII -ISS -BGM HTN -Discontinued Metoprlol and began Lisinopril 20mg daily Hypokalemia-Resolved -Continue to monitor F/E/N -On no fluids -Electrolytes wnl -Diabetic diet Prophylaxis -Heparin 5000 units SQ tid Disposition -Full code -Continue IV abx Visit type - Emergency Visit Emergency Visit: Yes ED Registration Date: 03/04/17 Care time: The patient presented to the Emergency Department on the above date and was hospitalized for further evaluation of their emergent condition. - New Patient This patient is new to me today: Yes Date on this admission: 03/08/17 - Critical Care Critical Care patient: No
[2017-03-09] MEDS: HEPARIN NA (PORCINE) 5,000 UNITS/ML 1ML VIAL SQ SCH ×3 (06:34→21:33)
[2017-03-09] MEDS: INSULIN SLIDING SCALE (NOVOLOG) 1 VIAL SQ SCH (06:35)
[2017-03-09] MEDS ORDERED: INSULIN (NOVOLOG) ASPART 100 UNITS/ML 10ML VIAL ONE (07:18)
[2017-03-09 08:03] LABS: MCH 28.4 pg (25.7-33.7); MCHC 32.2 g/dl (32.0-35.9); MEAN CELL VOLUME 88.2 fl (80-96); PLATELET COUNT 370 K/MM3 (134-434); RDW 15.7 % (11.9-15.9); WHITE BLOOD COUNT 9.4 K/mm3 (4.0-10.0)
[2017-03-09] MEDS: LISINOPRIL 20 MG TABLET (FP) PO SCH (09:40)
[2017-03-09] MEDS: CEFTAROLINE FOSAMIL ACETATE 600 MG in DEXTROSE 5%-WATER - 250 ML IVPB SCH ×2 (09:40→21:32)
--- NOTE | 2017-03-09 14:17 | PN ---
Progress Note (short form) - Note Progress Note: Subjective:pain in LLE has improved Objective: Vital Signs: Last Vital Signs Temp Pulse Resp BP Pulse Ox 97.9 F 92 H 18 137/89 97 03/09/17 08:53 03/09/17 08:53 03/09/17 08:53 03/09/17 08:53 03/08/17 21:00 Laboratory Results - last 24 hr 03/09/17 03/09/17 06:28 06:30 WBC 9.4 RBC 4.14 Hgb 11.7 Hct 36.5 MCV 88.2 MCH 28.4 MCHC 32.2 RDW 15.7 Plt Count 370 MPV 9.0 POC Glucometer 87 Microbiology 03/04/17 08:15 Blood Culture - Final Blood - Peripheral Venous NO GROWTH AFTER 5 DAYS INCUBATION 03/04/17 08:15 Blood Culture - Final Blood - Peripheral Venous NO GROWTH AFTER 5 DAYS INCUBATION Physical Exam: NAD CV: RRR Lungs : CTAB Ext: LLE with blisters, less warm, still has tenderness. increased circumference ( less ) . the bigger blister on bower is draining now . the posterior calf with oozing wound and raised tender area ASSESSMENT AND PLAN: 46 y/o man with h/o HTN, DM , and previous cellulitis who presented with increased pain and edema in LLE and was found to have acute cellulitis in LLE 1- LLE cellulitis: Nl WBC ,no fever - Cont ceftaroline - wound cx no growth and blood cx neg - no surgical intervention per sx 2- DM : on metformin at home SSI once daily 3- HTN: - 20 of lisinopril . 4- Possible STACEY, add CPAP . has appointment for sleep studies as outpt DVT Px Visit type - Emergency Visit Emergency Visit: Yes ED Registration Date: 03/04/17 Care time: The patient presented to the Emergency Department on the above date and was hospitalized for further evaluation of their emergent condition. - New Patient This patient is new to me today: No - Critical Care Critical Care patient: No
--- NOTE | 2017-03-09 14:22 | PN ---
Progress Note, Physician History of Present Illness: Reports less leg pain Was evaluated by surgery; no intervention planned No fever/chills Tolerating antibiotic - Current Medication List Current Medications: Active Medications Heparin Sodium (Porcine) (Heparin -) 5,000 unit SQ TID [facility] Last Admin: 03/09/17 13:55 Dose: 5,000 unit Ceftaroline Fosamil 600 mg/ (Dextrose) 250 mls @ 200 mls/hr IVPB BID ROSEMARIE PRN Reason: Protocol Last Admin: 03/09/17 09:40 Dose: 200 mls/hr Insulin Aspart (Novolog Vial Sliding Scale -) 1 vial SQ ACBK ROSEMARIE PRN Reason: Protocol Last Admin: 03/09/17 06:35 Dose: Not Given Lisinopril (Prinivil) 20 mg PO DAILY [facility] Last Admin: 03/09/17 09:40 Dose: 20 mg Morphine Sulfate (Morphine Injection -) 2 mg IVPUSH Q4H PRN PRN Reason: PAIN Last Admin: 03/08/17 21:42 Dose: 2 mg - Objective Vital Signs: Vital Signs Temperature 97.9 F 03/09/17 08:53 Pulse Rate 92 H 03/09/17 08:53 Respiratory Rate 18 03/09/17 08:53 Blood Pressure 137/89 03/09/17 08:53 O2 Sat by Pulse Oximetry (%) 97 03/08/17 21:00 Constitutional: Yes: No Distress Cardiovascular: Yes: Regular Rate and Rhythm, S1, S2 Respiratory: Yes: CTA Bilaterally Gastrointestinal: Yes: Normal Bowel Sounds, Soft, Abdomen, Obese. No: Tenderness Extremities: Yes: Other (decreased erythema/ warmth L LE) Edema: Yes Labs: CBC, BMP 03/09/17 06:30 03/07/17 07:15 INR, PTT INR 1.28 (0.82-1.09) H 03/05/17 06:00 Assessment/Plan Cellulitis L LE- improved Possible Organizing abscess L calf Chronic LE lymphedema Morbid obesity Continue empiric ceftaroline
--- NOTE | 2017-03-09 15:57 | CONS ---
DATE OF CONSULTATION: 03/09/2017 REFERRING PHYSICIAN: Bertha Oliveros MD REASON FOR REFERRAL: Cellulitic changes, left lower extremity. Rule out abscess. BRIEF HISTORY: This is a 47-year-old gentleman who was admitted with cellulitis of the left lower extremity. On admission through the emergency room, patient had an ultrasound of the left lower extremity, demonstrating no fluid collections in the subcutaneous space or in the intramuscular space. He is also noted to be negative for a DVT. I had been called that evening at the time of admission for evaluation for possible drainage. As discussed with the resident that evening, I made it very clear that if there is no collection, there is nothing to be drained. I came to see this gentleman today for followup to ensure that he is improving. The patient states his leg is much better but he still has a tightness in the left lower extremity. PAST MEDICAL HISTORY: Significant for hypertension, prediabetes, cellulitis, chronic lymphedema, morbid obesity. PAST SURGICAL HISTORY: None. MEDICATIONS: Refer to chart. ALLERGIES: None. SOCIAL HISTORY: Patient denies tobacco and alcohol use. PHYSICAL EXAMINATION: Left Lower Extremity: The patient has moderate cellulitic changes, left lower extremity, with edema. There is no warmth, there is no obvious erythema. The left lower extremity is larger in diameter than that of the right. The patient has bilateral chronic venous insufficiency and venous lymphedema. IMPRESSION: Cellulitis, left lower extremity. There is no obvious abscess. The patient is improving on antibiotics, as discussed with the resident that evening. There is no acute intervention from a surgical standpoint. Given his chronic venous and lymph changes, I would recommend followup with Vascular Surgery. No acute general surgery issues at this time. I will be available on a p.r.n. basis. Thank you for allowing me to participate in the care of your patient. BHAVIN ZEPEDA M.D. [id number] cc: Bertha Oliveros MD
[2017-03-09] MEDS ORDERED: PT OWN MED DRAWER 7, Y5N ONE (20:26)
[2017-03-10] MEDS: HEPARIN NA (PORCINE) 5,000 UNITS/ML 1ML VIAL SQ SCH ×3 (06:39→21:45)
[2017-03-10] MEDS: INSULIN SLIDING SCALE (NOVOLOG) 1 VIAL SQ SCH (06:58)
[2017-03-10] MEDS ORDERED: PT OWN MED DRAWER 7, Y5N ONE ×2 (09:34→19:59)
[2017-03-10] MEDS: LISINOPRIL 20 MG TABLET (FP) PO SCH (09:38)
[2017-03-10] MEDS: CEFTAROLINE FOSAMIL ACETATE 600 MG in DEXTROSE 5%-WATER - 250 ML IVPB SCH ×2 (09:38→21:43)
[2017-03-10] MEDS: morphine CARPU-JECT 4 MG/1 ML DISP.SYRIN IVPUSH PRN (09:38)
[2017-03-10] MEDS ORDERED: IBUPROFEN 400 MG TABLET (FP) PO PRN ×2 (10:13→13:17)
--- NOTE | 2017-03-10 11:04 | PN ---
Progress Note (short form) - Note Progress Note: improving but frustrated by slow improvement still has serous drainage from back of left leg seen by surgery, no drainage planned Vital Signs Period Temp Pulse Resp BP Sys/Clark Pulse Ox Last 24 Hr 98.0 F-98.8 F 82-98 18-20 118-125/62-87 Lungs-cta Heart- distant heart sounds extrem- left leg indurated with erythema, improving, no fluctuance, tender soft tissue mass posterior aspect of left lower calf unchanged CBC, BMP 03/09/17 06:30 03/07/17 07:15 Microbiology 03/04/17 08:15 Blood - Peripheral Venous Blood Culture - Final NO GROWTH AFTER 5 DAYS INCUBATION 03/04/17 08:15 Blood - Peripheral Venous Blood Culture - Final NO GROWTH AFTER 5 DAYS INCUBATION 03/05/17 09:50 Ulcer Gram Stain - Final 03/05/17 09:50 Ulcer Wound Culture - Final NO GROWTH OF AEROBIC ORGANISMS AFTER 48 HOURS INCUBATION 03/04/17 07:42 Urine - Urine Clean Catch Urine Culture - Final NO GROWTH OBTAINED Current Medications Heparin Sodium (Porcine) (Heparin -) 5,000 unit SQ TID [facility] Last Admin: 03/10/17 06:39 Dose: 5,000 unit Ceftaroline Fosamil 600 mg/ (Dextrose) 250 mls @ 200 mls/hr IVPB BID [facility] PRN Reason: Protocol Last Admin: 03/10/17 09:38 Dose: 200 mls/hr Ibuprofen (Motrin -) 400 mg PO Q6H PRN PRN Reason: PAIN Insulin Aspart (Novolog Vial Sliding Scale -) 1 vial SQ ACBK [facility] PRN Reason: Protocol Last Admin: 03/10/17 06:58 Dose: Not Given Lisinopril (Prinivil) 20 mg PO DAILY [facility] Last Admin: 03/10/17 09:38 Dose: 20 mg a/p soft tissue infection of left leg morbid obesity suspect abscess is evolving in lower leg and will ultimately need drainage leukocytosis has resolved continue ceftaroline
--- NOTE | 2017-03-10 16:20 | PN ---
Physical Exam: SUBJECTIVE: Patient seen and examined at bedside. Pt states leg pain is still present but improving. Pt requests ibuprofen instead of morphine. No headache, fever, chills, cp, sob, sweating, ausea, vomitin, diarrhea, constipation. OBJECTIVE: Vital Signs Period Temp Pulse Resp BP Sys/Clark Pulse Ox Last 24 Hr 98.2 F-98.8 F 82-98 18-20 117-124/60-87 96-97 GENERAL: The patient is awake, alert, and fully oriented, in no acute distress. HEAD: Normal with no signs of trauma. EYES: sclera anicteric, conjunctiva clear. No ptosis. ENT: oropharynx clear without exudates, moist mucous membranes. NECK: Trachea midline, full range of motion, supple. LUNGS: Breath sounds equal, clear to auscultation bilaterally, no wheezes, no crackles, no accessory muscle use. HEART: Regular rate and rhythm, S1, S2 without murmur, rub or gallop. ABDOMEN: Morbidly obese, Soft, nontender, nondistended, normoactive bowel sounds , no guarding, no rebound, no hepatosplenomegaly, no masses. EXTREMITIES: 2+ pulses, warm, well-perfused, Left leg swelling with non weeping open sores and multiple blisters. Area of dense tissue, possible abscess developing. NEUROLOGICAL: Cranial nerves II through XII grossly intact. Normal speech, gait not observed. PSYCH: Normal mood, normal affect. SKIN: Warm, dry, normal turgor, no rashes or lesions noted Laboratory Results - last 24 hr 03/10/17 06:58 POC Glucometer 90 Active Medications Generic Name Dose Route Start Last Admin Trade Name Aries PRN Reason Stop Dose Admin Heparin Sodium (Porcine) 5,000 unit 03/04/17 22:00 03/10/17 14:30 Heparin - SQ 5,000 unit TID [facility] Administration Ceftaroline Fosamil 600 mg/ 250 mls @ 200 mls/hr 03/05/17 10:00 03/10/17 09:38 Dextrose IVPB 200 mls/hr BID [facility] Administration Protocol Ibuprofen 600 mg 03/10/17 22:00 Motrin - PO 03/11/17 23:59 BID [facility] Insulin Aspart 1 vial 03/09/17 07:00 03/10/17 06:58 Novolog Vial Sliding Scale - SQ Not Given [facility] Protocol Lisinopril 20 mg 03/08/17 13:00 03/10/17 09:38 Prinivil PO 20 mg DAILY [facility] Administration ASSESSMENT/PLAN: 46 M w/ PMHx HTN, DM (treated with metformin) and cellulitis presented to ED with left leg swelling and new ruptured blisters. Patient was admitted for sepsis secondary to cellulitis. #Sepsis secondary to cellulitis -WBC 25.2, HR 112, left lower leg cellulitis -US negative for DVT -soft tissue US neg for abscess -in ED: 1L NS, Vanc/Zosyn, CXR negative for acute pathologies, positive for cardiomegaly -wound culture, blood cultures, and urine cultures neg so far -Ceftaroline -Ibuprofen for pain -monitor for abscess development #diabetes -A1c 6.9% -Novolog ISS -DM diet -BGM TIDAC #HTN -patient taking Metoprolol -continue regimen #FEN -not on fluid -lytes wnl -DM diet #Dispo -admit to [facility] for sepsis Zac Ontiveros MD PGY-1 Visit type - Emergency Visit Emergency Visit: No - New Patient This patient is new to me today: No - Critical Care Critical Care patient: No - Discharge Referral Referred to [facility] Med P.C.: No
--- NOTE | 2017-03-10 17:54 | PN ---
Teaching Attending Note Name of Resident: Zac Ontiveros ATTENDING PHYSICIAN STATEMENT I saw and evaluated the patient. I reviewed the resident's note and discussed the case with the resident. I agree with the resident's findings and plan as documented. SUBJECTIVE: pain has improved . no SOB or CP OBJECTIVE: NAD CV: RRR Lungs : CTAB Ext: LLE with blisters, less warm, still has tenderness. increased circumference ( less ). the posterior calf ulceration with oozing and raised tender area ASSESSMENT AND PLAN: 46 y/o man with h/o HTN, DM , and previous cellulitis who presented with increased pain and edema in LLE and was found to have acute cellulitis in LLE 1- LLE cellulitis: Nl WBC ,no fever - Cont ceftaroline - wound cx no growth and blood cx neg 2- DM : on metformin at home SSI once daily 3- HTN: - 20 of lisinopril . 4- Possible STACEY: CPAP . Has appointment for sleep studies as outpt DVT Px
[2017-03-10] MEDS: IBUPROFEN 400 MG TABLET (FP) PO SCH (21:43)
[2017-03-11] MEDS: HEPARIN NA (PORCINE) 5,000 UNITS/ML 1ML VIAL SQ SCH ×3 (06:09→21:05)
[2017-03-11] MEDS: INSULIN SLIDING SCALE (NOVOLOG) 1 VIAL SQ SCH (06:11)
[2017-03-11] MEDS ORDERED: PT OWN MED DRAWER 7, Y5N ONE ×2 (10:25→20:25)
[2017-03-11] MEDS: CEFTAROLINE FOSAMIL ACETATE 600 MG in DEXTROSE 5%-WATER - 250 ML IVPB SCH ×2 (10:37→21:05)
[2017-03-11] MEDS: LISINOPRIL 20 MG TABLET (FP) PO SCH (10:37)
[2017-03-11] MEDS: IBUPROFEN 400 MG TABLET (FP) PO SCH ×2 (10:37→21:08)
--- NOTE | 2017-03-11 14:12 | PN ---
Teaching Attending Note Name of Resident: Zac Ontiveros ATTENDING PHYSICIAN STATEMENT I saw and evaluated the patient. I reviewed the resident's note and discussed the case with the resident. I agree with the resident's findings and plan as documented. SUBJECTIVE: no fever or chills. feels better . OBJECTIVE: NAD CV: RRR Lungs : CTAB Ext: LLE with smaller blisters, less warm, still has tenderness. increased circumference ( less ). the posterior calf ulceration with oozing and raised tender area ASSESSMENT AND PLAN: 46 y/o man with h/o HTN, DM , and previous cellulitis who presented with increased pain and edema in LLE and was found to have acute cellulitis in LLE 1- LLE cellulitis: Nl WBC ,no fever - Cont ceftaroline - wound cx no growth and blood cx neg - ibuptofen for pain. controlled 2- DM : on metformin at home SSI once daily 3- HTN: - 20 of lisinopril . BP controlled 4- Possible STACEY: CPAP . Has appointment for sleep studies as outpt DVT Px
--- NOTE | 2017-03-11 15:39 | PN ---
Progress Note (short form) - Note Progress Note: improving much happier today able to ambulate Vital Signs Period Temp Pulse Resp BP Sys/Clark Pulse Ox Last 24 Hr 97.6 F-98.7 F 85-95 18-20 104-144/60-74 96 cor-rrr lungs clear abd soft ext less edema, erythema much improved posterior lesion with serous drainage CBC, BMP 03/09/17 06:30 03/07/17 07:15 Current Medications Heparin Sodium (Porcine) (Heparin -) 5,000 unit SQ TID [facility] Last Admin: 03/11/17 13:54 Dose: 5,000 unit Ceftaroline Fosamil 600 mg/ (Dextrose) 250 mls @ 200 mls/hr IVPB BID [facility] PRN Reason: Protocol Last Admin: 03/11/17 10:37 Dose: 200 mls/hr Ibuprofen (Motrin -) 600 mg PO BID [facility] Stop: 03/11/17 23:59 Last Admin: 03/11/17 10:37 Dose: 600 mg Insulin Aspart (Novolog Vial Sliding Scale -) 1 vial SQ ACBK [facility] PRN Reason: Protocol Last Admin: 03/11/17 06:11 Dose: Not Given Lisinopril (Prinivil) 20 mg PO DAILY [facility] Last Admin: 03/11/17 10:37 Dose: 20 mg a/p soft tissue infection of left leg morbid obesity improving continue ceftaroline
--- NOTE | 2017-03-11 16:36 | PN ---
Physical Exam: SUBJECTIVE: Patient seen and examined at bedside. Pt states leg pain is still present but improving. Pt requesting ibuprofen instead of morphine. No headache , fever, chills, cp, sob, sweating, ausea, vomiting, diarrhea, constipation. OBJECTIVE: Vital Signs Period Temp Pulse Resp BP Sys/Clark Pulse Ox Last 24 Hr 97.6 F-98.7 F 85-95 18-20 104-144/60-74 96 GENERAL: The patient is awake, alert, and fully oriented, in no acute distress. HEAD: Normal with no signs of trauma. EYES: PERRL, extraocular movements intact, sclera anicteric, conjunctiva clear. No ptosis. ENT: Ears normal, nares patent, oropharynx clear without exudates, moist mucous membranes. NECK: Trachea midline, full range of motion, supple. LUNGS: Breath sounds equal, clear to auscultation bilaterally, no wheezes, no crackles, no accessory muscle use. HEART: Regular rate and rhythm, S1, S2 without murmur, rub or gallop. ABDOMEN: Soft, nontender, nondistended, normoactive bowel sounds, no guarding, no rebound, no hepatosplenomegaly, no masses. EXTREMITIES: 2+ pulses, warm, well-perfused, no edema. NEUROLOGICAL: Cranial nerves II through XII grossly intact. Normal speech, gait not observed. PSYCH: Normal mood, normal affect. SKIN: Warm, dry, normal turgor, no rashes or lesions noted Laboratory Results - last 24 hr 03/11/17 06:09 POC Glucometer 89 Active Medications Generic Name Dose Route Start Last Admin Trade Name Aries PRN Reason Stop Dose Admin Heparin Sodium (Porcine) 5,000 unit 03/04/17 22:00 03/11/17 13:54 Heparin - SQ 5,000 unit TID [facility] Administration Ceftaroline Fosamil 600 mg/ 250 mls @ 200 mls/hr 03/05/17 10:00 03/11/17 10:37 Dextrose IVPB 200 mls/hr BID [facility] Administration Protocol Ibuprofen 600 mg 03/10/17 22:00 03/11/17 10:37 Motrin - PO 03/11/17 23:59 600 mg BID [facility] Administration Insulin Aspart 1 vial 03/09/17 07:00 03/11/17 06:11 Novolog Vial Sliding Scale - SQ Not Given ACBK [facility] Protocol Lisinopril 20 mg 03/08/17 13:00 03/11/17 10:37 Prinivil PO 20 mg DAILY [facility] Administration ASSESSMENT/PLAN: 46 M w/ PMHx HTN, DM (treated with metformin) and cellulitis presented to ED with left leg swelling and new ruptured blisters. Patient was admitted for sepsis secondary to cellulitis. #Sepsis secondary to cellulitis -WBC 25.2, HR 112, left lower leg cellulitis -US negative for DVT -soft tissue US neg for abscess -in ED: 1L NS, Vanc/Zosyn, CXR negative for acute pathologies, positive for cardiomegaly -wound culture, blood cultures, and urine cultures neg so far -Ceftaroline -Ibuprofen for pain -monitor for abscess development -pt improving slowly. Continue management #diabetes -A1c 6.9% -Novolog ISS -DM diet -BGM TIDAC #HTN -patient taking Metoprolol -continue regimen #FEN -not on fluid -lytes wnl -DM diet #Dispo -admit to [facility] [place] for sepsis Zac Ontiveros MD PGY-1 Visit type - Emergency Visit Emergency Visit: No - New Patient This patient is new to me today: No - Critical Care Critical Care patient: No - Discharge Referral Referred to [facility] Med P.C.: No
[2017-03-12] MEDS: HEPARIN NA (PORCINE) 5,000 UNITS/ML 1ML VIAL SQ SCH ×3 (06:20→21:13)
[2017-03-12 07:17] LABS: BASOPHIL 1.1 % (0-2.0); EOSINOPHIL 3.4 % (0-4.5); MCH 28.2 pg (25.7-33.7); MCHC 31.5 g/dl (32.0-35.9); MEAN CELL VOLUME 89.5 fl (80-96); MEAN PLT VOLUME 8.7 fl (7.5-11.1); NEUTROPHILS 61.8 % (42.8-82.8); PLATELET COUNT 391 K/MM3 (134-434); RDW 15.4 % (11.9-15.9); WHITE BLOOD COUNT 7.2 K/mm3 (4.0-10.0)
--- NOTE | 2017-03-12 08:24 | PN ---
Physical Exam: SUBJECTIVE: Patient seen and examined at bedside. Pt describes leg tightness. Pain adequately controlled by ibuprofen. No headache, fever, chills, cp, sob, sweating, nausea, vomiting, diarrhea, constipation. OBJECTIVE: Vital Signs Period Temp Pulse Resp BP Sys/Clark Pulse Ox Last 24 Hr 97.5 F-99.7 F 77-99 18-20 104-144/55-84 96-98 GENERAL: The patient is awake, alert, and fully oriented, in no acute distress. HEAD: Normal with no signs of trauma. EYES: sclera anicteric, conjunctiva clear. No ptosis. ENT: Ears normal, nares patent, oropharynx clear without exudates, moist mucous membranes. NECK: Trachea midline, full range of motion, supple. LUNGS: Breath sounds equal, clear to auscultation bilaterally, no wheezes, no crackles, no accessory muscle use. HEART: Regular rate and rhythm, S1, S2 without murmur, rub or gallop. ABDOMEN: Soft, nontender, nondistended, normoactive bowel sounds, no guarding, no rebound, no hepatosplenomegaly, no masses. EXTREMITIES: 2+ pulses, warm, well-perfused, left leg cellulitis with hardened region on posterior calf. No weeping/oozing. NEUROLOGICAL: Cranial nerves II through XII grossly intact. Normal speech, gait not observed. PSYCH: Normal mood, normal affect. SKIN: Warm, dry, normal turgor, no rashes or lesions noted Laboratory Results - last 24 hr 03/12/17 03/12/17 06:07 06:30 WBC 7.2 RBC 4.03 Hgb 11.4 L Hct 36.1 MCV 89.5 MCH 28.2 MCHC 31.5 L RDW 15.4 Plt Count 391 MPV 8.7 Neutrophils % 61.8 Lymphocytes % 24.7 D Monocytes % 9.0 Eosinophils % 3.4 Basophils % 1.1 POC Glucometer 91 Active Medications Generic Name Dose Route Start Last Admin Trade Name Freq PRN Reason Stop Dose Admin Heparin Sodium (Porcine) 5,000 unit 03/04/17 22:00 03/12/17 06:20 Heparin - SQ 5,000 unit TID [facility] Administration Ceftaroline Fosamil 600 mg/ 250 mls @ 200 mls/hr 03/05/17 10:00 03/11/17 21:05 Dextrose IVPB 200 mls/hr BID [facility] Administration Protocol Insulin Aspart 1 vial 03/09/17 07:00 03/11/17 06:11 Novolog Vial Sliding Scale - SQ Not Given ACBK [facility] Protocol Lisinopril 20 mg 03/08/17 13:00 03/11/17 10:37 Prinivil PO 20 mg DAILY [facility] Administration Pantoprazole Sodium 20 mg 03/12/17 10:00 Protonix - PO DAILY [facility] ASSESSMENT/PLAN: 46 M w/ PMHx HTN, DM (treated with metformin) and cellulitis presented to ED with left leg swelling and new ruptured blisters. Patient was admitted for sepsis secondary to cellulitis. #Sepsis secondary to cellulitis -WBC 25.2, HR 112, left lower leg cellulitis -US negative for DVT -soft tissue US neg for abscess (03/06) -in ED: 1L NS, Vanc/Zosyn, CXR negative for acute pathologies, positive for cardiomegaly -wound culture, blood cultures, and urine cultures neg so far -Ceftaroline -Ibuprofen for pain -monitor for abscess development -pt improving slowly. Continue management #Likely STACEY -CPAP -sleep study out pt #diabetes -A1c 6.9% -Novolog ISS -DM diet -BGM TIDAC #HTN -patient taking Metoprolol -continue regimen #FEN -not on fluid -lytes wnl -DM diet #Dispo -[facility] Zac Ontiveros MD PGY-1 Visit type - Emergency Visit Emergency Visit: No - New Patient This patient is new to me today: No - Critical Care Critical Care patient: No - Discharge Referral Referred to [facility] Med P.C.: No
[2017-03-12] MEDS: INSULIN SLIDING SCALE (NOVOLOG) 1 VIAL SQ SCH (08:36)
[2017-03-12] MEDS: PANTOPRAZOLE 20 MG TABLET (FP) PO SCH (10:22)
[2017-03-12] MEDS: LISINOPRIL 20 MG TABLET (FP) PO SCH (10:22)
[2017-03-12] MEDS: CEFTAROLINE FOSAMIL ACETATE 600 MG in DEXTROSE 5%-WATER - 250 ML IVPB SCH ×2 (10:22→21:13)
--- NOTE | 2017-03-12 13:23 | PN ---
Progress Note (short form) - Note Progress Note: improving slowly able to ambulate Vital Signs Period Temp Pulse Resp BP Sys/Clark Pulse Ox Last 24 Hr 97.4 F-99.7 F 77-99 18-20 107-144/55-84 98 cor-rrr llungs clear abd soft,nt ext chronic lymphedema still indurated but less erythema, serous drainage, open ulcers on back of leg CBC, BMP 03/12/17 06:30 03/07/17 07:15 Microbiology 03/04/17 08:15 Blood - Peripheral Venous Blood Culture - Final NO GROWTH AFTER 5 DAYS INCUBATION 03/04/17 08:15 Blood - Peripheral Venous Blood Culture - Final NO GROWTH AFTER 5 DAYS INCUBATION 03/05/17 09:50 Ulcer Gram Stain - Final 03/05/17 09:50 Ulcer Wound Culture - Final NO GROWTH OF AEROBIC ORGANISMS AFTER 48 HOURS INCUBATION 03/04/17 07:42 Urine - Urine Clean Catch Urine Culture - Final NO GROWTH OBTAINED Current Medications Heparin Sodium (Porcine) (Heparin -) 5,000 unit SQ TID [facility] Last Admin: 03/12/17 06:20 Dose: 5,000 unit Ceftaroline Fosamil 600 mg/ (Dextrose) 250 mls @ 200 mls/hr IVPB BID [facility] PRN Reason: Protocol Last Admin: 03/12/17 10:22 Dose: 200 mls/hr Insulin Aspart (Novolog Vial Sliding Scale -) 1 vial SQ ACBK [facility] PRN Reason: Protocol Last Admin: 03/12/17 08:36 Dose: Not Given Lisinopril (Prinivil) 20 mg PO DAILY [facility] Last Admin: 03/12/17 10:22 Dose: 20 mg Pantoprazole Sodium (Protonix -) 20 mg PO DAILY [facility] Last Admin: 03/12/17 10:22 Dose: 20 mg a/p soft tissue infection of left leg morbid obesity improving continue ceftaroline suggest vascular evaluation with Dr Humphries will need outpt wound care as well
--- NOTE | 2017-03-12 13:28 | PN ---
Teaching Attending Note Name of Resident: Zac Ontiveros ATTENDING PHYSICIAN STATEMENT I saw and evaluated the patient. I reviewed the resident's note and discussed the case with the resident. I agree with the resident's findings and plan as documented. SUBJECTIVE: Patient is comfortable with no acute distress. OBJECTIVE: Vital Signs Temperature 97.4 F L 03/12/17 10:00 Pulse Rate 78 03/12/17 10:00 Respiratory Rate 20 03/12/17 10:00 Blood Pressure 114/84 03/12/17 10:00 O2 Sat by Pulse Oximetry (%) 98 03/11/17 21:00 CBCD WBC 7.2 K/mm3 (4.0-10.0) 03/12/17 06:30 RBC 4.03 M/mm3 (4.00-5.60) 03/12/17 06:30 Hgb 11.4 GM/dL (11.7-16.9) L 03/12/17 06:30 Hct 36.1 % (35.4-49) 03/12/17 06:30 MCV 89.5 fl (80-96) 03/12/17 06:30 MCHC 31.5 g/dl (32.0-35.9) L 03/12/17 06:30 RDW 15.4 % (11.9-15.9) 03/12/17 06:30 Plt Count 391 K/MM3 (134-434) 03/12/17 06:30 MPV 8.7 fl (7.5-11.1) 03/12/17 06:30 CMP Sodium 136 mmol/L (136-145) 03/07/17 07:15 Potassium 3.7 mmol/L (3.5-5.1) 03/07/17 07:15 Chloride 94 mmol/L (98-107) L 03/07/17 07:15 Carbon Dioxide 32 mmol/L (21-32) 03/07/17 07:15 Anion Gap 10 (8-16) 03/07/17 07:15 BUN 9 mg/dL (7-18) 03/07/17 07:15 Creatinine 1.1 mg/dL (0.7-1.3) 03/07/17 07:15 Creat Clearance w eGFR > 60 (>60) 03/07/17 07:15 Random Glucose 94 mg/dL (74-106) 03/07/17 07:15 Calcium 8.5 mg/dL (8.5-10.1) 03/07/17 07:15 Total Bilirubin 0.7 mg/dL (0.2-1.0) D 03/07/17 07:15 AST 18 U/L (15-37) D 03/07/17 07:15 ALT 19 U/L (12-78) 03/07/17 07:15 Alkaline Phosphatase 100 U/L (45-117) 03/07/17 07:15 Total Protein 7.1 g/dl (6.4-8.2) 03/07/17 07:15 Albumin 2.2 g/dl (3.4-5.0) L 03/07/17 07:15 CARDIAC ENZYMES Creatine Kinase 206 IU/L (39-308) 03/04/17 08:15 Troponin I < 0.02 ng/ml (0.00-0.05) 03/04/17 08:15 Home Medications Medication Instructions Recorded Clindamycin [Cleocin -] 300 mg PO Q6H 03/04/17 Current Medications Generic Name Dose Route Start Last Admin Trade Name Freq PRN Reason Stop Dose Admin Heparin Sodium (Porcine) 5,000 unit 03/04/17 22:00 03/12/17 06:20 Heparin - SQ 5,000 unit TID [facility] Administration Ceftaroline Fosamil 600 mg/ 250 mls @ 200 mls/hr 03/05/17 10:00 03/12/17 10:22 Dextrose IVPB 200 mls/hr BID [facility] Administration Protocol Insulin Aspart 1 vial 03/09/17 07:00 03/12/17 08:36 Novolog Vial Sliding Scale - SQ Not Given ACBK [facility] Protocol Lisinopril 20 mg 03/08/17 13:00 03/12/17 10:22 Prinivil PO 20 mg DAILY [facility] Administration Pantoprazole Sodium 20 mg 03/12/17 10:00 03/12/17 10:22 Protonix - PO 20 mg DAILY [facility] Administration Microbiology 03/04/17 08:15 Blood - Peripheral Venous Blood Culture - Final NO GROWTH AFTER 5 DAYS INCUBATION 03/04/17 08:15 Blood - Peripheral Venous Blood Culture - Final NO GROWTH AFTER 5 DAYS INCUBATION 03/05/17 09:50 Ulcer Gram Stain - Final 03/05/17 09:50 Ulcer Wound Culture - Final NO GROWTH OF AEROBIC ORGANISMS AFTER 48 HOURS INCUBATION 03/04/17 07:42 Urine - Urine Clean Catch Urine Culture - Final NO GROWTH OBTAINED LLE: swelling improving ASSESSMENT AND PLAN: 46 y/o man with h/o HTN, DM , and previous cellulitis who presented with increased pain and edema in LLE and was found to have acute cellulitis in LLE # LLE cellulitis: On IV ceftaroline 600mg BID; wound cx no growth and blood cx neg . Dr. Jassi Humphries Vascular seen the patient will add alenginate to his wound, # T2DM : on metformin at home ; SSI once daily # HTN: 20 of lisinopril . BP controlled # Possible STACEY: CPAP . Has appointment for sleep studies as outp Possible discharge in am
--- NOTE | 2017-03-12 13:43 | CONSULT ---
Consult - Alcohol/Substance Use Hx Alcohol Use: Yes (occasional) - Smoking History Smoking history: Never smoked Have you smoked in the past 12 months: No Home Medications - Allergies Allergies/Adverse Reactions: Allergies Allergy/AdvReac Type Severity Reaction Status Date / Time No Known Allergies Allergy Verified 03/04/17 07:06 - Home Medications Home Medications: Ambulatory Orders Clindamycin [Cleocin -] 300 mg PO Q6H 03/04/17 Physical Exam Vital Signs: Vital Signs Temperature 97.4 F L 03/12/17 10:00 Pulse Rate 78 03/12/17 10:00 Respiratory Rate 20 03/12/17 10:00 Blood Pressure 114/84 03/12/17 10:00 O2 Sat by Pulse Oximetry (%) 98 03/11/17 21:00 Labs: CBC, BMP 03/12/17 06:30 03/07/17 07:15 Assessment/Plan Vascular Surgery The patient is a 46M with a PMH of HTN, untreated DM, morbid obesity, and h/o cellulitis in R leg 1 year ago. The patient presented 5 days ago with symptoms of LLE cellulitis, was d/c with tylenol for pain and clindamycin for cellulitis coverage. Today the patient presents with overnight painful LLE with weeping ulcers. He states the pain is due to the tightness in his legs. He is compliant wit his abx. He see's me in wound care. We have him in a lymphedema pump Allergies: none Surg: none recent Social: occasional drinks; does not smoke, or use recreational drugs <Greg Summers - Last Filed: 03/04/17 10:11> <Willy Lo - Last Filed: 03/04/17 11:06> - General Chief Complaint: Wound Infection Stated Complaint: SWOLLEN LEGS/WOUND Time Seen by Provider: 03/04/17 07:16 Past History - Past Medical History Diabetes: Yes (borderline) HTN: Yes - Psycho/Social/Smoking Cessation Hx Anxiety: No Suicidal Ideation: No Smoking History: Never smoked Have you smoked in the past 12 months: No Hx Alcohol Use: Yes (occasional) Drug/Substance Use Hx: No Substance Use Type: None PE Head - NC/AT Lung - CTA Heart - RRR abd - soft,nt,nd ext - Left lower ext -- posterior aspect with wound , weeping. Wound explored, no pus found A/P Bl lower ext lymphedema 1. Compression to both legs with fabi 2. Algicite to wounds 3. leg elevation Jassi Humphires DO
[2017-03-12] MEDS ORDERED: IBUPROFEN 600 MG TABLET (FP) PO PRN (19:25)
[2017-03-12] MEDS ORDERED: PT OWN MED DRAWER 7, Y5N ONE (21:02)
[2017-03-13] MEDS: HEPARIN NA (PORCINE) 5,000 UNITS/ML 1ML VIAL SQ SCH (06:26)
[2017-03-13] MEDS: INSULIN SLIDING SCALE (NOVOLOG) 1 VIAL SQ SCH (06:30)
[2017-03-13 08:18] VITALS: BP 124/79; TEMP 98.4
[2017-03-13 08:51] LABS: BASOPHIL 0.8 % (0-2.0); EOSINOPHIL 4.5 % (0-4.5); MCHC 32.8 g/dl (32.0-35.9); MEAN CELL VOLUME 88.5 fl (80-96); MEAN PLT VOLUME 9.5 fl (7.5-11.1); NEUTROPHILS 56.3 % (42.8-82.8); PLATELET COUNT 442 K/MM3 (134-434); RDW 15.4 % (11.9-15.9); WHITE BLOOD COUNT 6.6 K/mm3 (4.0-10.0)
[2017-03-13 08:56] LABS: ANION GAP 7 (8-16); CALCIUM 9.1 mg/dL (8.5-10.1); CO2 29 mmol/L (21-32); CREATININE 1.1 mg/dL (0.7-1.3); GLUCOSE,RANDOM 90 mg/dL (74-106)
[2017-03-13] MEDS: PANTOPRAZOLE 20 MG TABLET (FP) PO SCH (09:58)
[2017-03-13] MEDS: LISINOPRIL 20 MG TABLET (FP) PO SCH (09:58)
[2017-03-13] MEDS: CEFTAROLINE FOSAMIL ACETATE 600 MG in DEXTROSE 5%-WATER - 250 ML IVPB SCH (09:59)
--- NOTE | 2017-03-13 10:30 | PN ---
Teaching Attending Note Name of Resident: Zac Ontiveros ATTENDING PHYSICIAN STATEMENT I saw and evaluated the patient. I reviewed the resident's note and discussed the case with the resident. I agree with the resident's findings and plan as documented. SUBJECTIVE: Patient is feeling better, Legs are better as per patient and the swelling improved tremendously. OBJECTIVE: Vital Signs Temperature 98.4 F 03/13/17 08:17 Pulse Rate 78 03/13/17 08:17 Respiratory Rate 20 03/13/17 08:17 Blood Pressure 124/79 03/13/17 08:17 O2 Sat by Pulse Oximetry (%) 98 03/12/17 21:00 CBCD WBC 6.6 K/mm3 (4.0-10.0) 03/13/17 07:45 RBC 3.97 M/mm3 (4.00-5.60) L 03/13/17 07:45 Hgb 11.5 GM/dL (11.7-16.9) L 03/13/17 07:45 Hct 35.1 % (35.4-49) L 03/13/17 07:45 MCV 88.5 fl (80-96) 03/13/17 07:45 MCHC 32.8 g/dl (32.0-35.9) 03/13/17 07:45 RDW 15.4 % (11.9-15.9) 03/13/17 07:45 Plt Count 442 K/MM3 (134-434) H 03/13/17 07:45 MPV 9.5 fl (7.5-11.1) 03/13/17 07:45 CMP Sodium 137 mmol/L (136-145) 03/13/17 07:45 Potassium 4.5 mmol/L (3.5-5.1) D 03/13/17 07:45 Chloride 101 mmol/L (98-107) 03/13/17 07:45 Carbon Dioxide 29 mmol/L (21-32) 03/13/17 07:45 Anion Gap 7 (8-16) L 03/13/17 07:45 BUN 15 mg/dL (7-18) D 03/13/17 07:45 Creatinine 1.1 mg/dL (0.7-1.3) 03/13/17 07:45 Creat Clearance w eGFR > 60 (>60) 03/07/17 07:15 Random Glucose 90 mg/dL (74-106) 03/13/17 07:45 Calcium 9.1 mg/dL (8.5-10.1) 03/13/17 07:45 Total Bilirubin 0.7 mg/dL (0.2-1.0) D 03/07/17 07:15 AST 18 U/L (15-37) D 03/07/17 07:15 ALT 19 U/L (12-78) 03/07/17 07:15 Alkaline Phosphatase 100 U/L (45-117) 03/07/17 07:15 Total Protein 7.1 g/dl (6.4-8.2) 03/07/17 07:15 Albumin 2.2 g/dl (3.4-5.0) L 03/07/17 07:15 CARDIAC ENZYMES Creatine Kinase 206 IU/L (39-308) 03/04/17 08:15 Troponin I < 0.02 ng/ml (0.00-0.05) 03/04/17 08:15 Current Medications Generic Name Dose Route Start Last Admin Trade Name Freq PRN Reason Stop Dose Admin Heparin Sodium (Porcine) 5,000 unit 03/04/17 22:00 03/13/17 06:26 Heparin - SQ 5,000 unit TID ROSEMARIE Administration Ceftaroline Fosamil 600 mg/ 250 mls @ 200 mls/hr 03/05/17 10:00 03/13/17 09:59 Dextrose IVPB 200 mls/hr BID ROSEMARIE Administration Protocol Ibuprofen 600 mg 03/12/17 19:25 03/12/17 21:12 Motrin - PO 600 mg Q6H PRN Administration FEVER Insulin Aspart 1 vial 03/09/17 07:00 03/13/17 06:30 Novolog Vial Sliding Scale - SQ Not Given ACBK ROSEMARIE Protocol Lisinopril 20 mg 03/08/17 13:00 03/13/17 09:58 Prinivil PO 20 mg DAILY ROSEMARIE Administration Pantoprazole Sodium 20 mg 03/12/17 10:00 03/13/17 09:58 Protonix - PO 20 mg DAILY ROSEMARIE Administration Home Medications Medication Instructions Recorded Clindamycin [Cleocin -] 300 mg PO Q6H 03/04/17 PE: per resident's note ASSESSMENT AND PLAN: Patient is a 46 y/o man with h/o HTN, DM , and previous cellulitis who presented with increased pain and edema in LLE and was found to have acute cellulitis in LLE #Complicated LLE cellulitis: On IV ceftaroline 600mg BID in the hospital, being discharged on Zyvox 600mg po Bid, and ceftin 500mg po tid , follow with Dr. Humphries in wound care clinic, follow with ID in their office . cx no growth and blood cx neg . continue aleginate to his wound, # T2DM : on metformin at home ; SSI once daily continue # HTN: 20 of lisinopril . BP controlled # Possible STACEY: CPAP . Has appointment for sleep studies as outpatient Discharge patient home.
[2017-03-13 11:26] VITALS: PULSE 113
--- NOTE | 2017-03-13 13:06 | PN ---
Progress Note (short form) - Note Progress Note: feeling much better Vital Signs Period Temp Pulse Resp BP Sys/Clark Pulse Ox Last 24 Hr 97.2 F-99.3 F 72-113 18-20 93-135/51-79 97-98 cor-rrr llungs clear abd soft,nt ext less erythema, still warm but less, less edema- much improved CBC, BMP 03/13/17 07:45 03/13/17 07:45 Microbiology 03/04/17 08:15 Blood - Peripheral Venous Blood Culture - Final NO GROWTH AFTER 5 DAYS INCUBATION 03/04/17 08:15 Blood - Peripheral Venous Blood Culture - Final NO GROWTH AFTER 5 DAYS INCUBATION 03/05/17 09:50 Ulcer Gram Stain - Final 03/05/17 09:50 Ulcer Wound Culture - Final NO GROWTH OF AEROBIC ORGANISMS AFTER 48 HOURS INCUBATION 03/04/17 07:42 Urine - Urine Clean Catch Urine Culture - Final NO GROWTH OBTAINED a/p soft tissue infection of left leg morbid obesity improving d/w Dr Coleman zyvox and ceftin for 7 days as outpt will avoid levaquin - prolonged QT I called wound care he has appt for wound care tomorrow at 130pm with Dr Humphries
[2017-03-13] MEDS ORDERED: IBUPROFEN 600 MG TABLET (FP) PO ONE (13:30)
--- NOTE | 2017-03-13 14:53 | DS ---
Physical Exam: SUBJECTIVE: Patient seen and examined at bedside. Pt describes leg tightness. Pain adequately controlled by ibuprofen. No headache, fever, chills, cp, sob, sweating, nausea, vomiting, diarrhea, constipation. OBJECTIVE: Vital Signs Period Temp Pulse Resp BP Sys/Clark Pulse Ox Last 24 Hr 97.2 F-99.3 F 72-113 18-20 93-135/51-79 97-98 PHYSICAL EXAM GENERAL: The patient is awake, alert, and fully oriented, in no acute distress. HEAD: Normal with no signs of trauma. EYES: sclera anicteric, conjunctiva clear. No ptosis. ENT: oropharynx clear without exudates, moist mucous membranes. NECK: Trachea midline, full range of motion, supple. LUNGS: Breath sounds equal, clear to auscultation bilaterally, no wheezes, no crackles, no accessory muscle use. HEART: Regular rate and rhythm, S1, S2 without murmur, rub or gallop. ABDOMEN: Soft, nontender, nondistended, normoactive bowel sounds, no guarding, no rebound, no hepatosplenomegaly, no masses. EXTREMITIES: 2+ pulses, warm, well-perfused, left leg cellulitis with hardened region on posterior calf. No weeping/oozing. Has improved greatly. NEUROLOGICAL: Cranial nerves II through XII grossly intact. Normal speech, gait not observed. PSYCH: Normal mood, normal affect. SKIN: Warm, dry, normal turgor, no rashes or lesions noted LABS Laboratory Results - last 24 hr 03/13/17 03/13/17 03/13/17 06:28 07:45 07:45 WBC 6.6 RBC 3.97 L Hgb 11.5 L Hct 35.1 L MCV 88.5 MCH 29.0 MCHC 32.8 RDW 15.4 Plt Count 442 H MPV 9.5 Neutrophils % 56.3 Lymphocytes % 28.0 Monocytes % 10.4 H Eosinophils % 4.5 Basophils % 0.8 Sodium 137 Potassium 4.5 D Chloride 101 Carbon Dioxide 29 Anion Gap 7 L BUN 15 D Creatinine 1.1 POC Glucometer 91 Random Glucose 90 Calcium 9.1 HOSPITAL COURSE: Date of Admission:03/04/17 Date of Discharge: 03/13/17 46 M w/ PMHx HTN, DM (treated with metformin) and cellulitis presented to ED with left leg swelling and new ruptured blisters. Patient was admitted for sepsis secondary to cellulitis. Pt came in with WBC 25.2, HR 112, and left lower leg cellulitis. Was effectively treated with Ceftaroline. U/S showed no DVT. Soft tissue U/S showed no abscess. Wound culture, blood culture, and urine culture were all negative. Pt received Ibuprofen for pain. Pt likely has STACEY. Was given CPAP in the hospital and was given instructions to follow up with sleep studies as out pt. Pt had A1C of 6.9 % in hospital. Pt was on metformin outpt and received insulin sliding scale inpt. Pt's HTN was treated with Metoprolol. Minutes to complete discharge: 45 Discharge Summary Reason For Visit: CELLULITIS Current Active Problems Cellulitis (Acute) Sepsis affecting skin (Acute) HTN (hypertension) (Chronic) Lymphedema of extremity (Chronic) Pre-diabetes (Chronic) Condition: Stable - Instructions Diet, Activity, Other Instructions: -You need to follow up with your primary care doctor (Dr. Quintero), your surgeon ( Dr. Humphries), and infectious diseases (Dr. Hernandez) within week. Please call the infectious disease office and make an appointment for follow up. -You will be sent home with Antibiotics for another 7days, please pick it up from the pharmacy -You will need to continue compressions of both legs. -You will need to use the Aligenate dressing directly on the wounds -Please continue leg elevations -If symptoms worsen and you experience severe pain or no sensation, return to the emergency department. Referrals: Mariajose Hernandez MD [Staff Physician] - 1 Week Jassi Humphries MD [Staff Physician] - 1 Week Disposition: HOME - Home Medications Comprehensive Discharge Medication List: Ambulatory Orders Cefuroxime Axetil [Ceftin -] 500 mg PO Q8H #21 tablet 03/13/17 Linezolid [Zyvox] 600 mg PO BID #14 tablet 03/13/17 Lisinopril [Prinivil] 20 mg PO DAILY #10 tablet 03/13/17 This patient is new to me today: No Emergency Visit: No Critical Care patient: No - Discharge Referral Referred to [facility] No
== END 2017-03-13 13:30 | disposition home or self-care (01) | DRG 720 ==
LOC: JER 07:04 → JERBED 10:12 → J8W 16:20
PROVIDERS: ADMIT Internal Medicine; ATTEND Internal Medicine
PROC: 5A09457 Assistance with Respiratory Ventilation, 24-96 Consecutive Hours, Continuous Positive Airway Pressure (ICD-10-PCS; principal; 2017-03-10)
DX: A41.9 Sepsis, unspecified organism (principal); E13.622 Other specified diabetes mellitus with other skin ulcer; L03.116 Cellulitis of left lower limb; E66.01 Morbid (severe) obesity due to excess calories; Z68.44 Body mass index [BMI] 60.0-69.9, adult; Z71.3 Dietary counseling and surveillance; I10 Essential (primary) hypertension; F12.10 Cannabis abuse, uncomplicated; I87.8 Other specified disorders of veins; E87.6 Hypokalemia; D72.828 Other elevated white blood cell count; I89.0 Lymphedema, not elsewhere classified; G47.33 Obstructive sleep apnea (adult) (pediatric); I51.7 Cardiomegaly; I87.2 Venous insufficiency (chronic) (peripheral); Z79.84 Long term (current) use of oral hypoglycemic drugs
CPT/HCPCS: 36415; 71010-TC; 73590-TC-LT; 76882; 80048; 80053; 81003; 81015; 82553; 82803; 83036; 83605; 83735; 84100; 84484; 85025; 85027; 85610; 85730; 86850; 86900; 86901; 87040; 87070; 87086; 87205; 93005; 93010; 93970-TC; 94660; 97116-GP; 97161-GP; 99283-25; J1644

== ENCOUNTER 2019-04-18 16:56 | Emergency (ER) | payer OTHER ==
[2019-04-18 17:02] VITALS: BP 128/77; PULSE 97; TEMP 98.3; BMI 56.1
--- NOTE | 2019-04-18 19:23 | PDOC ---
History of Present Illness - General Chief Complaint: Pain Stated Complaint: PAIN Time Seen by Provider: 04/18/19 19:22 History Source: Patient Exam Limitations: No Limitations - History of Present Illness Initial Comments: 04/18/19 20:18 Francis Mathis is a 49yM w PMHx HTN uncontrolled DM presenting w L leg pain. Sudden onset pain starting L groin region radiating down to ankle for last 2 days. Associated L leg swelling. Had intermittent L leg swelling for past 2 years. Took ibuprofen without relief. Was treated for L leg cellulitis 2 years ago. Came back from [place] 3 weeks ago. No recent surgery. Denies fever, nausea /vomiting, chest/AB pain, SOB, pyuria/hematuria/bowel movement changes. Past History - Past Medical History Allergies/Adverse Reactions: Allergies Allergy/AdvReac Type Severity Reaction Status Date / Time No Known Allergies Allergy Verified 04/18/19 17:01 Home Medications: Ambulatory Orders Clindamycin [Cleocin -] 300 mg PO QID 7 Days #28 capsule 04/18/19 Hydrochlorothiazide [Hctz -] 25 mg PO DAILY 04/18/19 COPD: No Diabetes: Yes (borderline) HTN: Yes - Suicide/Smoking/Psychosocial Hx Smoking History: Never smoked Have you smoked in the past 12 months: No Hx Alcohol Use: Yes (occasional) Drug/Substance Use Hx: No Substance Use Type: None Review of Systems - Review of Systems Constitutional: No: Chills, Fever HEENTM: No: Eye Pain, Nose Pain, Throat Pain, Mouth Pain Respiratory: No: Cough, Shortness of Breath Cardiac (ROS): No: Chest Pain, Palpitations, Syncope ABD/GI: No: Abdominal Distended, Constipated, Diarrhea, Nausea, Vomiting : No: Burning, Dysuria, Discharge, Frequency, Flank Pain, Hematuria, Incontinence Musculoskeletal: Yes: Other (L groin pain radiating down leg to ankle). No: Back Pain, Joint Pain, Muscle Pain, Muscle Weakness Integumentary: No: Bruising, Flushing, Lesions Neurological: No: Headache, Numbness, Seizure, Tingling, Tremors Psychiatric: No: Anxiety, Depression, Stressors Endocrine: No: Excessive Sweating, Flushing, Intolerance to Cold, Intolerance to Heat Hematologic/Lymphatic: No: Anemia, Blood Clots, Easy Bleeding *Physical Exam - Vital Signs Last Vital Signs Temp Pulse Resp BP Pulse Ox 98.3 F 97 H 20 128/77 99 04/18/19 16:58 04/18/19 16:58 04/18/19 16:58 04/18/19 16:58 04/18/19 16:58 - Physical Exam General Appearance: Yes: Nourished, Appropriately Dressed. No: Apparent Distress HEENT: positive: EOMI, ELIZABETH, Hearing Grossly Normal. negative: Scleral Icterus (R), Scleral Icterus (L) Respiratory/Chest: positive: Lungs Clear, Normal Breath Sounds. negative: Chest Tender, Respiratory Distress, Crackles, Rales, Rhonchi, Stridor, Wheezing Cardiovascular: positive: Regular Rhythm, Regular Rate, S1, S2. negative: Murmur Male Genitalia: positive: normal genitalia. negative: discharge, testicular mass, epididymus tender, hernia Musculoskeletal: negative: CVA Tenderness (R), CVA Tenderness (L) Extremity: positive: Normal Capillary Refill Integumentary: positive: Warm (L leg), Erythema (L lower leg), Swelling (3+ pitting edema to L thigh), Other (L lower leg skin pitting, leg not tender, normal sensation, 3+ pulses, full ROM, 5/5 strength). negative: Rash, Ecchymosis, Bruising Neurologic: positive: Fully Oriented, Alert, Normal Mood/Affect, Normal Response , Motor Strength 5/5, Responsive. negative: Sensory Deficit, Confused, Disoriented ED Treatment Course - LABORATORY CBC & Chemistry Diagram: 04/18/19 20:55 04/18/19 20:55 Medical Decision Making - Medical Decision Making 04/18/19 19:51 CBC CMP CPK blood cx UA duplex US shows no DVT in L leg, oval shaped nodule 4.x1.8cm in L groin compatible w fatty hilum, not seen in 2017 CBC UA normal Francis Mathis is a 49yM w PMHx HTN uncontrolled DM presenting w L leg pain likely due to cellulitis. No DVT on duplex US. Oval shaped nodule 4.x1.8cm on US likely reactive nodule. Leg neurovascular intact. Low suspicion osteomyelitis /necrotizing fasciitis without bubbles on exam. Pt afebrile, normal WBC count, d /c home w clindamycin prescription 450mg QID 7d and f/u for nodule *DC/Admit/Observation/Transfer Diagnosis at time of Disposition: Cellulitis Qualifiers: Site of cellulitis: extremity Site of cellulitis of extremity: lower extremity Laterality: left Qualified Code(s): L03.116 - Cellulitis of left lower limb - Discharge Dispostion Disposition: HOME Condition at time of disposition: Good Decision to Admit order: No - Prescriptions Prescriptions: Clindamycin [Cleocin -] 300 mg PO QID 7 Days #28 capsule - Referrals - Patient Instructions Printed Discharge Instructions: DI for Cellulitis -- Adult Additional Instructions: You were seen for leg pain and swelling due to cellulitis. Your ultrasound shows that you have a small nodule in your left groin region. You were given a dose of antibiotic. Take your prescribed antibiotic 4 times a day for the next 7 days. Please come back to the ED in 2 days to reassess your cellulitis. Please follow up with your primary care doctor regarding your cellulitis and imaging finding. Come back to the ED for increasing pain, cannot move your leg, or get a fever. - Post Discharge Activity
[2019-04-18] MEDS ORDERED: SODIUM CHLORIDE 0.9% 500 ML INFUS.BAG IV ONE (20:16)
[2019-04-18 21:16] LABS: BASO % 0.7 % (0-2.0); EOS % 7.4 % (0-4.5); HEMATOCRIT 40.5 % (35.4-49); LYMPH % 18.1 % (8-40); MCH 29.2 pg (25.7-33.7); MCHC 32.1 g/dl (32.0-35.9); MEAN CELL VOLUME 90.8 fl (80-96); MEAN PLT VOLUME 10.2 fl (7.5-11.1); NEUT % 61.8 % (42.8-82.8); PLATELET COUNT 232 K/MM3 (134-434); RBC 4.46 M/mm3 (4.00-5.60); RDW 15.4 % (11.9-15.9); WHITE BLOOD COUNT 9.3 K/mm3 (4.0-10.0)
[2019-04-18 21:40] LABS: PH,URINE 5.5 (5.0-8.0); URINE APPEARANCE CLOUDY; URINE BILIRUBIN NEGATIVE (NEGATIVE); URINE COLOR DK YELLOW; URINE GLUCOSE (UA) NEGATIVE (NEGATIVE); URINE KETONE NEGATIVE (NEGATIVE); URINE LEUK ESTERASE NEGATIVE (NEGATIVE); URINE NITRITE NEGATIVE (NEGATIVE); URINE PROTEIN TRACE (NEGATIVE)
--- NOTE | 2019-04-18 21:47 | PDOC ---
Documentation entered by Jaylan Heart SCRIBE, acting as scribe for Maximus Lim MD. Maximus Lim MD: This documentation has been prepared by the Sly gongora Nirvannie, SCRIBE, under my direction and personally reviewed by me in its entirety. I confirm that the documentation accurately reflects all work, treatment, procedures, and medical decision making performed by me. Attending Attestation - Resident Resident Name: Reagan Avila - ED Attending Attestation I have performed the following: I have examined & evaluated the patient, The case was reviewed & discussed with the resident, I agree w/resident's findings & plan - HPI HPI: 04/19/19 02:07 49 years old past medical history significant for hypertension diabetes presents with left leg swelling and pain pain radiates from his thigh to his leg he has had this problem in the past with lymphedema for the last 2 years had a cellulitis 2 years ago no fever no chills no chest pain or shortness of breath - Physicial Exam PE: 04/19/19 02:07 Vitals: Triage Vital signs reviewed General Appearance: no acute distress, well nourished well developed, Head: Atraumatic, Neck: Supple;No Nucal rigidity Chest Wall: Nontender Cardiac: Regular rate and rhythym, no murmurs, no rubs, no gallops, Lungs: Clear to auscultation bilateral, good air movement bilaterally, Abdomen: Soft, non distended, normal bowel sounds, non tender to palpation Extremities: Full range of motion to all extremities lymphedema left lower extremity larger than right lower extremity Skin: Warm and dry, redness and warmth to left thigh no involvement of the groin or perineum Neuro: AOX3; Cranial Nerves 2-12 grossly intact, Strength intact to all extremities, Sensation intact to all extremities,gait normal Psych: normal mood, normal affect - Medical Decision Making 04/19/19 02:08 49 years old with swelling and redness to left leg history of lymphedema and cellulitis to the same leg no groin or perineum involvement. No fever no white count patient is well-appearing given that this is his initial presentation we'll try a course of antibiotics with very close follow- up he will return to the ED or follow up with his primary care provider in 2 days for wound check or return to ED immediately for any severe worsening symptoms or fevers or for any concerns Findings, the need for follow-up and strict return instructions discussed patient.
[2019-04-18 22:23] LABS: PLATELET ESTIMATE NORMAL
[2019-04-18 22:46] LABS: ALBUMIN 2.9 g/dl (3.4-5.0); ALK PHOS 95 U/L (45-117); ANION GAP 8 MMOL/L (8-16); BILIRUBIN,TOTAL 0.5 mg/dL (0.2-1); BLOOD UREA NITROGEN 8.7 mg/dL (7-18); CALCIUM 8.7 mg/dL (8.5-10.1); CHLORIDE 99 mmol/L (98-107); CO2 31 mmol/L (21-32); CREATININE 0.9 mg/dL (0.55-1.3); GLUCOSE,RANDOM 87 mg/dL (74-106); SGOT/AST 23 U/L (15-37); SGPT/ALT 19 U/L (13-61); SODIUM 138 mmol/L (136-145); TOT PROT 7.2 g/dl (6.4-8.2)
[2019-04-18] MEDS ORDERED: CLINDAMYCIN HCL 300 MG CAPSULE PO ONE (22:56)
[2019-04-18] MEDS ORDERED: CLINDAMYCIN HCL 150 MG CAPSULE (FP) ONE (23:08)
== END 2019-04-18 23:20 | disposition home or self-care (01) ==
LOC: JER 16:56
DX: L03.116 Cellulitis of left lower limb (principal); I10 Essential (primary) hypertension; E11.9 Type 2 diabetes mellitus without complications
CPT/HCPCS: 36415; 80053; 81003; 82550; 82553; 85025; 87040; 87086; 93971-TC; 99283-25

== ENCOUNTER 2019-04-21 11:30 | Inpatient (IN) | payer OTHER ==
[2019-04-21] MEDS ORDERED: VANCOMYCIN 1,000 MG in DEXTROSE 5%-WATER - 250 ML IVPB ONE (12:39)
[2019-04-21] MEDS ORDERED: PIPERACILLIN/TAZOB 3.375 GM 3.375 GM in DEXTROSE 5%-WATER - 50 ML IVPB ONE (12:40)
--- NOTE | 2019-04-21 12:40 | PDOC ---
History of Present Illness - General Chief Complaint: Revisit,Wound Recheck Stated Complaint: WOUND CHECK Time Seen by Provider: 04/21/19 12:03 History Source: Patient Exam Limitations: No Limitations - History of Present Illness Initial Comments: 04/21/19 12:41 The patient is a 49 y/o M with PMH of HTN, boarderline DM, presents to the ER for LLE swelling. He states his leg started swelling started 5 days ago. He was seen in our ER three days ago and was diagnosed with cellulitis. He was discharged home on Clindamycin. Pt states he has been taking the antibiotics as prescribed; however, he has seen no improvement. He states the leg is painful and incredibly swollen. Denies fevers, chills, chest pain, SOB, n/v/d. A/P: Cellulitis; failed out patient treatment The LLE is with tight edema 4+ and is warm. No obvious redness to the area. Lab, BC's , EKG, leg x-ray, IV meds ordered. Chart reviewed, Doppler from three days ago negative for DVT Admit for IV antibiotics Sign out given to SERA Moon and Charge Nurse Tesha Past History - Travel Traveled outside of the country in the last 30 days: No Close contact w/someone who was outside of country & ill: No - Past Medical History Allergies/Adverse Reactions: Allergies Allergy/AdvReac Type Severity Reaction Status Date / Time No Known Allergies Allergy Verified 04/21/19 11:47 Home Medications: Ambulatory Orders Clindamycin [Cleocin -] 300 mg PO QID 7 Days #28 capsule 04/18/19 Hydrochlorothiazide [Hctz -] 25 mg PO DAILY 04/18/19 COPD: No Diabetes: Yes (borderline) HTN: Yes - Psycho Social/Smoking Cessation Hx Smoking History: Never smoked Have you smoked in the past 12 months: No Hx Alcohol Use: Yes Drug/Substance Use Hx: No Substance Use Type: None Review of Systems - Review of Systems Able to Perform ROS?: Yes Comments:: 04/21/19 12:34 CONSTITUTIONAL: Absent: fever, chills, diaphoresis, generalized weakness, malaise, loss of appetite HEENT: Absent: rhinorrhea, nasal congestion, throat pain, throat swelling, difficulty swallowing, mouth swelling, ear pain, eye pain, visual Changes CARDIOVASCULAR: Absent: chest pain, loss of consciousness, palpitations, irregular heart rate, peripheral edema RESPIRATORY: Absent: cough, shortness of breath, dyspnea with exertion, orthopnea, wheezing, stridor, hemoptysis GASTROINTESTINAL: Absent: abdominal pain, abdominal distension, nausea, vomiting, diarrhea, constipation, melena, hematochezia GENITOURINARY: Absent: dysuria, frequency, urgency, hesitancy, hematuria, flank pain, genital pain MUSCULOSKELETAL: Absent: myalgia, arthralgia, joint swelling SKIN: Present: LLE infection and swelling Absent: itching, pallor HEMATOLOGIC/IMMUNOLOGIC: Absent: easy bleeding, easy bruising, lymphadenopathy, frequent infections ENDOCRINE: Absent: unexplained weight gain, unexplained weight loss, heat intolerance, cold intolerance NEUROLOGIC: Absent: headache, focal weakness or paresthesias, dizziness, unsteady gait, seizure, mental status changes, bladder or bowel incontinence PSYCHIATRIC: Absent: anxiety, depression, suicidal or homicidal ideation, hallucinations. Is the patient limited Armenian proficient: No *Physical Exam - Vital Signs Last Vital Signs Temp Pulse Resp BP Pulse Ox 98.3 F 96 H 16 163/83 100 04/21/19 11:44 04/21/19 11:44 04/21/19 11:44 04/21/19 11:44 04/21/19 11:44 - Physical Exam Comments: 04/21/19 12:37 GENERAL: Well developed, well nourished. Awake and alert. No acute distress. HEENT: Normocephalic, atraumatic. PERRLA, EOMI. No conjunctival pallor. Sclera are non- icteric. Moist mucous membranes. Oropharynx is clear. NECK: Supple. Full ROM. No JVD. Carotid pulses 2+ and symmetric, without bruits. No thyromegaly. No lymphadenopathy. CARDIOVASCULAR: Regular rate and rhythm. No murmurs, rubs, or gallops. Distal pulses are 2+ and symmetric. PULMONARY: No evidence of respiratory distress. Lungs clear to auscultation bilaterally. No wheezing, rales or rhonchi. ABDOMINAL: Soft. Non-tender. Non-distended. No rebound or guarding. No organomegaly. Normoactive bowel sounds. MUSCULOSKELETAL Normal range of motion at all joints. No bony deformities or tenderness. No CVA tenderness. EXTREMITIES: No cyanosis. No clubbing. No edema. No calf tenderness. SKIN: 4+ tight lymphedema to the L lower leg. Area is warm to the touch. Warm and dry. Normal capillary refill. No rashes. No jaundice. NEUROLOGICAL: Alert, awake, appropriate. Cranial nerves 2-12 intact. No deficits to light touch and temperature in face, upper extremities and lower extremities. No motor deficits in the in face, upper extremities and lower extremities. Normoreflexic in the upper and lower extremities. Normal speech. Toes are down- going bilaterally. Gait is normal without ataxia. PSYCHIATRIC: Cooperative. Good eye contact. Appropriate mood and affect. ED Treatment Course - LABORATORY CBC & Chemistry Diagram: 04/21/19 14:00 04/21/19 14:00 Discharge - Discharge Information Problems reviewed: Yes Clinical Impression/Diagnosis: Lymphedema of extremity Condition: Stable - Follow up/Referral - Patient Discharge Instructions - Post Discharge Activity
[2019-04-21] MEDS ORDERED: PIPERACILLIN/TAZOB 3.375 GM 3.375 GM/50 ML BAG IVPB ONE (14:19)
[2019-04-21 14:37] LABS: EOS % 5.1 % (0-4.5); HEMATOCRIT 42.1 % (35.4-49); HEMOGLOBIN 13.9 GM/dL (11.7-16.9); LYMPH % 17.7 % (8-40); MCH 29.7 pg (25.7-33.7); MCHC 33.1 g/dl (32.0-35.9); MEAN CELL VOLUME 89.6 fl (80-96); MEAN PLT VOLUME 9.5 fl (7.5-11.1); MONO % 6.8 % (3.8-10.2); NEUT % 69.4 % (42.8-82.8); PH,URINE 5.5 (5.0-8.0); PLATELET COUNT 357 K/MM3 (134-434); RDW 14.6 % (11.9-15.9); URINE APPEARANCE CLEAR; URINE BILIRUBIN NEGATIVE (NEGATIVE); URINE COLOR YELLOW; URINE GLUCOSE (UA) NEGATIVE (NEGATIVE); URINE KETONE TRACE (NEGATIVE); URINE LEUK ESTERASE NEGATIVE (NEGATIVE); URINE NITRITE NEGATIVE (NEGATIVE); URINE PROTEIN NEGATIVE (NEGATIVE)
[2019-04-21 14:44] LABS: ALBUMIN 3.3 g/dl (3.4-5.0); BILIRUBIN,TOTAL 0.5 mg/dL (0.2-1); CALCIUM 9.2 mg/dL (8.5-10.1); POTASSIUM 3.7 mmol/L (3.5-5.1); TOT PROT 8.1 g/dl (6.4-8.2)
--- NOTE | 2019-04-21 15:08 | PDOC ---
History of Present Illness - General Chief Complaint: Revisit,Wound Recheck Stated Complaint: WOUND CHECK Time Seen by Provider: 04/21/19 12:03 Past History - Past Medical History Allergies/Adverse Reactions: Allergies Allergy/AdvReac Type Severity Reaction Status Date / Time No Known Allergies Allergy Verified 04/21/19 11:47 Home Medications: Ambulatory Orders Clindamycin [Cleocin -] 300 mg PO QID 7 Days #28 capsule 04/18/19 Hydrochlorothiazide [Hctz -] 25 mg PO DAILY 04/18/19 COPD: No Diabetes: Yes (borderline) HTN: Yes - Psycho Social/Smoking Cessation Hx Smoking History: Never smoked Have you smoked in the past 12 months: No Hx Alcohol Use: Yes Drug/Substance Use Hx: No Substance Use Type: None Review of Systems - Review of Systems Is the patient limited Kiswahili proficient: No *Physical Exam - Vital Signs Last Vital Signs Temp Pulse Resp BP Pulse Ox 98.3 F 96 H 18 129/78 99 04/21/19 11:44 04/21/19 14:53 04/21/19 14:53 04/21/19 14:53 04/21/19 14:53 ED Treatment Course - LABORATORY CBC & Chemistry Diagram: 04/21/19 14:00 04/21/19 14:00 - ADDITIONAL ORDERS Additional order review: Laboratory Results 04/21/19 04/21/19 14:00 14:00 Sodium 137 Potassium 3.7 Chloride 99 Carbon Dioxide 28 Anion Gap 10 BUN 15.0 Creatinine 1.0 Est GFR (CKD-EPI)AfAm 102.69 Est GFR (CKD-EPI)NonAf 88.61 Random Glucose 103 Calcium 9.2 Total Bilirubin 0.5 AST 16 ALT 20 Alkaline Phosphatase 94 Total Protein 8.1 Albumin 3.3 L Urine Color Yellow Urine Appearance Clear Urine pH 5.5 Ur Specific Homer 1.025 Urine Protein Negative Urine Glucose (UA) Negative Urine Ketones Trace H Urine Blood Negative Urine Nitrite Negative Urine Bilirubin Negative Urine Urobilinogen 1.0 Ur Leukocyte Esterase Negative 04/21/19 14:00 RBC 4.70 MCV 89.6 MCHC 33.1 RDW 14.6 MPV 9.5 Neutrophils % 69.4 Lymphocytes % 17.7 Monocytes % 6.8 Eosinophils % 5.1 H Basophils % 1.0 Medical Decision Making - Medical Decision Making Medical Decision Making: Patient signed out to me from fast track provider for cellulitis, needing admission Patient is a morbidly obese 49-year-old male with history of hypertension, poorly controlled diabetes seen in ED 4 days ago for left lower leg cellulitis. Had labs done which was negative with no DVT on ultrasound but possible reactive nodules to left groin per radiology. Patient sent home on clindamycin and here today with worsening of symptoms. No fever or chills. Of note, patient was admitted for lower extremity cellulitis in 2016 Discharge - Follow up/Referral Referrals: Noam Nogueira MD [Primary Care Provider] - - Patient Discharge Instructions - Post Discharge Activity
--- NOTE | 2019-04-21 15:11 | PDOC ---
*Physical Exam - Vital Signs Last Vital Signs Temp Pulse Resp BP Pulse Ox 98.3 F 96 H 18 129/78 99 04/21/19 11:44 04/21/19 14:53 04/21/19 14:53 04/21/19 14:53 04/21/19 14:53 - Physical Exam General Appearance: Yes: Appropriately Dressed. No: Apparent Distress HEENT: positive: Normal Voice Neck: positive: Supple Respiratory/Chest: positive: Lungs Clear, Normal Breath Sounds. negative: Respiratory Distress Cardiovascular: positive: Regular Rate, S1, S2 Extremity: positive: Pedal Edema (B/l pedal edema, L>>>R w/ edema extending to L thigh, no obvious increased warmth and no sig ttp, unable to appreciate any erythema, no open wounds/secretions, unable to palpate pedal pulses bilaterally) Integumentary: positive: Dry, Warm Neurologic: positive: Fully Oriented, Alert, Normal Mood/Affect ED Treatment Course - LABORATORY CBC & Chemistry Diagram: 04/21/19 14:00 04/21/19 14:00 - ADDITIONAL ORDERS Additional order review: Laboratory Results 04/21/19 04/21/19 14:00 14:00 Sodium 137 Potassium 3.7 Chloride 99 Carbon Dioxide 28 Anion Gap 10 BUN 15.0 Creatinine 1.0 Est GFR (CKD-EPI)AfAm 102.69 Est GFR (CKD-EPI)NonAf 88.61 Random Glucose 103 Calcium 9.2 Total Bilirubin 0.5 AST 16 ALT 20 Alkaline Phosphatase 94 Total Protein 8.1 Albumin 3.3 L Urine Color Yellow Urine Appearance Clear Urine pH 5.5 Ur Specific [place] 1.025 Urine Protein Negative Urine Glucose (UA) Negative Urine Ketones Trace H Urine Blood Negative Urine Nitrite Negative Urine Bilirubin Negative Urine Urobilinogen 1.0 Ur Leukocyte Esterase Negative 04/21/19 14:00 RBC 4.70 MCV 89.6 MCHC 33.1 RDW 14.6 MPV 9.5 Neutrophils % 69.4 Lymphocytes % 17.7 Monocytes % 6.8 Eosinophils % 5.1 H Basophils % 1.0 Medical Decision Making - Medical Decision Making Medical Decision Makin:40pm Patient signed out to me from fast track provider for LLE cellulitis, needing admission Patient is a morbidly obese male with a history of HTN, NIDDM, chronic b/l LE lymphedema, LLE>>>R, lost to follow-up with Dr. Jassi mancuso of vascular in 2017 when management was with compression stockings and extremity elevation, no grey inspector and not on any diuretics per pt, was seen in ED 4 days ago for worsening L leg pain/swelling and diagnosed with cellulitis. Labs normal. Ultrasound read as negative for DVT but did show possible lymph node to left groin. Patient returns today because swelling has not gotten better and in fact has gotten worse per patient, is still able to bear weight. No sig pain and no fever, chills, shortness of breath, chest pain or palpitations. Based on exam, not entirely convinced of active infection but pt since given dose of IV abx from FT. Sxs most likely representing worsening lymphedema in setting of poor follow-up and non-compliance per hx/records here. Labs today normal. Will repeat ultrasound given worsening symptoms. Will place consult to Dr. Mancuso. Case discussed with Dr. Mcgrath and patient admitted Discharge - Discharge Information Problems reviewed: Yes Clinical Impression/Diagnosis: Lymphedema of extremity Condition: Stable - Admission Yes - Follow up/Referral Referrals: Noam Nogueira MD [Primary Care Provider] - - Patient Discharge Instructions - Post Discharge Activity
[2019-04-21 16:01] LABS: INR 1.08 (0.83-1.09); PROTHROMBIN TIME (PATIENT) 12.7 SEC (9.7-13.0)
[2019-04-21] MEDS ORDERED: VANCOMYCIN 1 GRAM (PRE-DOCKED) 1,000 MG/250 ML BAG IVPB ONE (16:47)
--- NOTE | 2019-04-21 19:45 | HP ---
Admitting History and Physical - Primary Care Physician PCP: Jak Mcgrath - Admission History of Present Illness: 49 y/o M with PMH of HTN, boarderline DM, presents to the ER for LLE swelling. He states his leg started swelling started 5 days ago. He was seen in our ER three days ago and was diagnosed with cellulitis. He was discharged home on Clindamycin. Pt states he has been taking the antibiotics as prescribed; however , he has seen no improvement. He states the leg is painful and incredibly swollen. Denies fevers, chills, chest pain, SOB, n/v/d. - Past Medical History Cardiovascular: Yes: HTN Endocrine: Yes: Diabetes Mellitus - Smoking History Smoking history: Never smoked Have you smoked in the past 12 months: No - Alcohol/Substance Use Hx Alcohol Use: Yes Home Medications - Allergies Allergies/Adverse Reactions: Allergies Allergy/AdvReac Type Severity Reaction Status Date / Time No Known Allergies Allergy Verified 04/21/19 11:47 - Home Medications Home Medications: Ambulatory Orders Clindamycin [Cleocin -] 300 mg PO QID 7 Days #28 capsule 04/18/19 Hydrochlorothiazide [Hctz -] 25 mg PO DAILY 04/18/19 Physical Examination Vital Signs: Vital Signs Temperature 98.2 F 04/21/19 16:59 Pulse Rate 96 H 04/21/19 16:59 Respiratory Rate 18 04/21/19 16:59 Blood Pressure 121/79 04/21/19 16:59 O2 Sat by Pulse Oximetry (%) 100 04/21/19 16:59 Constitutional: Yes: No Distress Neck: Yes: Supple Cardiovascular: Yes: Regular Rate and Rhythm Respiratory: Yes: CTA Bilaterally Gastrointestinal: Yes: Normal Bowel Sounds Extremities: Yes: Other (llex cellulitis) Edema: LLE: 4+, RLE: 2+ Neurological: Yes: Alert, Oriented Labs: CBC, BMP 04/21/19 14:00 04/21/19 14:00 Imaging - Results X-ray: Report Reviewed Ultrasound: Report Reviewed Problem List - Problems (1) Lymphedema of extremity Code(s): I89.0 - LYMPHEDEMA, NOT ELSEWHERE CLASSIFIED (2) Cellulitis Assessment/Plan: iv abx doppler negative for dvt Code(s): L03.90 - CELLULITIS, UNSPECIFIED (3) HTN (hypertension) Assessment/Plan: monitor Code(s): I10 - ESSENTIAL (PRIMARY) HYPERTENSION Qualifiers: (4) Pre-diabetes Assessment/Plan: monitor bgms Code(s): R73.03 - PREDIABETES Assessment/Plan Laboratory Tests 04/21/19 04/21/19 04/21/19 14:00 14:00 14:00 WBC 8.0 RBC 4.70 Hgb 13.9 Hct 42.1 MCV 89.6 MCH 29.7 MCHC 33.1 RDW 14.6 Plt Count 357 D MPV 9.5 Absolute Neuts (auto) 5.5 Neutrophils % 69.4 Lymphocytes % 17.7 Monocytes % 6.8 Eosinophils % 5.1 H Basophils % 1.0 Nucleated RBC % 0 PT with INR 12.70 INR 1.08 Sodium 137 Potassium 3.7 Chloride 99 Carbon Dioxide 28 Anion Gap 10 BUN 15.0 Creatinine 1.0 Est GFR (CKD-EPI)AfAm 102.69 Est GFR (CKD-EPI)NonAf 88.61 Random Glucose 103 Calcium 9.2 Total Bilirubin 0.5 AST 16 ALT 20 Alkaline Phosphatase 94 Total Protein 8.1 Albumin 3.3 L Urine Color Urine Appearance Urine pH Ur Specific [place] Urine Protein Urine Glucose (UA) Urine Ketones Urine Blood Urine Nitrite Urine Bilirubin Urine Urobilinogen Ur Leukocyte Esterase 04/21/19 14:00 WBC RBC Hgb Hct MCV MCH MCHC RDW Plt Count MPV Absolute Neuts (auto) Neutrophils % Lymphocytes % Monocytes % Eosinophils % Basophils % Nucleated RBC % PT with INR INR Sodium Potassium Chloride Carbon Dioxide Anion Gap BUN Creatinine Est GFR (CKD-EPI)AfAm Est GFR (CKD-EPI)NonAf Random Glucose Calcium Total Bilirubin AST ALT Alkaline Phosphatase Total Protein Albumin Urine Color Yellow Urine Appearance Clear Urine pH 5.5 Ur Specific [place] 1.025 Urine Protein Negative Urine Glucose (UA) Negative Urine Ketones Trace H Urine Blood Negative Urine Nitrite Negative Urine Bilirubin Negative Urine Urobilinogen 1.0 Ur Leukocyte Esterase Negative Active Medications Generic Name Dose Route Start Last Admin Trade Name Freq PRN Reason Stop Dose Admin Acetaminophen 650 mg 04/21/19 19:49 Tylenol - PO Q6H PRN FEVER Heparin Sodium (Porcine) 5,000 unit 04/21/19 22:00 04/23/19 09:10 Heparin - SQ 5,000 unit BID [facility] Administration Ceftriaxone Sodium 1 gm/ 50 mls @ 100 mls/hr 04/23/19 16:15 04/23/19 16:38 Dextrose IVPB 100 mls/hr DAILY ROSEM[facility]IE Administration Protocol
[2019-04-21] MEDS ORDERED: ACETAMINOPHEN 325 MG TABLET (FP) PO PRN (19:49)
[2019-04-21] MEDS: HEPARIN NA (PORCINE) 5,000 UNITS/ML 1ML VIAL SQ SCH (21:44)
--- NOTE | 2019-04-22 08:28 | CONSULT ---
Consult Consult Specialty:: VASCULAR SURGERY - Jassi Humphries Referred by:: Internal Medicine - History of Present Illness Chief Complaint: LE edema (L>R) History of Present Illness: Called to evaluate 49 yo male with h/o morbid obesity HTN, NIDDM, chronic b/l LE lymphedema (L>R). Lost to f/u with Dr. Jassi Humphries in 2017 when management was initiated with compression stockings and LE elevation. States he has a lymph pump at home and uses occasionally. Patient works as a school superintendent and by the end of his shift his legs (L>R) is typically twice it's normal size. States as soon as he gets home he elevates it and helps to relieve the swelling. Patient was recently here in ER with c/o worsening LLE pain/swelling --> diagnosed with cellulitis. Also has an LE duplex which was negative for DVT. Denies n/v/f/c, CP, palpitations, SOB, WELLS. Denies parasthesias or rest pain to either LE. - History Source History Provided By: Patient, Medical Record Limitations to Obtaining History: No Limitations - Past Medical History Cardio/Vascular: Yes: HTN Endocrine: Yes: Diabetes Mellitus Additional Medical History: Morbid Obesity - Past Surgical History Past Surgical History: Yes: None - Alcohol/Substance Use Hx Alcohol Use: Yes History of Substance Use: reports: Marijuana - Smoking History Smoking history: Never smoked Have you smoked in the past 12 months: No - Social History Usual Living Arrangement: With Spouse ADL: Independent Place of : [facility] History of Recent Travel: No Home Medications - Allergies Allergies/Adverse Reactions: Allergies Allergy/AdvReac Type Severity Reaction Status Date / Time No Known Allergies Allergy Verified 04/21/19 11:47 - Home Medications Home Medications: Ambulatory Orders Clindamycin [Cleocin -] 300 mg PO QID 7 Days #28 capsule 04/18/19 Hydrochlorothiazide [Hctz -] 25 mg PO DAILY 04/18/19 Review of Systems - Review of Systems Constitutional: reports: No Symptoms Eyes: reports: No Symptoms HENT: reports: No Symptoms Neck: reports: No Symptoms Cardiovascular: reports: No Symptoms Respiratory: reports: No Symptoms Gastrointestinal: reports: No Symptoms Genitourinary: reports: No Symptoms Musculoskeletal: reports: No Symptoms Integumentary: reports: No Symptoms Neurological: reports: No Symptoms Endocrine: reports: No Symptoms Hematology/Lymphatic: reports: Other (Chronic LE lymphedema) Psychiatric: reports: No Symptoms Physical Exam Vital Signs: Vital Signs Temperature 97.9 F 04/22/19 06:37 Pulse Rate 82 04/22/19 06:37 Respiratory Rate 18 04/22/19 06:37 Blood Pressure 106/60 04/22/19 06:37 O2 Sat by Pulse Oximetry (%) 98 04/22/19 08:16 Constitutional: Yes: Well Nourished, No Distress, Calm Eyes: Yes: WNL, Conjunctiva Clear, EOM Intact HENT: Yes: WNL, Atraumatic, Normocephalic Neck: Yes: WNL, Supple, Trachea Midline Cardiovascular: Yes: WNL, Regular Rate and Rhythm Respiratory: Yes: WNL, Regular, CTA Bilaterally Gastrointestinal: Yes: WNL, Soft, Abdomen, Obese Renal/: Yes: WNL Musculoskeletal: Yes: WNL Edema: Yes (non-pitting) Peripheral Pulses WNL: Yes (Dopplerable DP & PT bilat) Integumentary: Yes: Other (Chronic skin changes associated with his lymphedema.) ...Motor Strength: WNL Psychiatric: Yes: WNL, Alert, Oriented Labs: CBC, BMP 04/21/19 14:00 04/21/19 14:00 Imaging - Results Ultrasound: Report Reviewed Problem List - Problems (1) Lymphedema of extremity Code(s): I89.0 - LYMPHEDEMA, NOT ELSEWHERE CLASSIFIED (2) HTN (hypertension) Code(s): I10 - ESSENTIAL (PRIMARY) HYPERTENSION Qualifiers: (3) Pre-diabetes Code(s): R73.03 - PREDIABETES Assessment/Plan 49 yo male admitted with worsening of his chronic lower extremity lymphedema (L> R) in setting of poor f/u and non-compliance with lymph pump at home. No evidence of cellulitis/active infection. Strict elevation while in bed or seated in chair. Cont to use lymph pumps Finger Sticks ACHS Tight glycemic control No further Vascular workup Patient instructed to f/u with Dr. Humphries in [facility] On behalf of Dr. Humphries, thank you for the opportunity to participate in your patient's care. Visit type - Emergency Visit Emergency Visit: Yes ED Registration Date: 04/21/19 Care time: The patient presented to the Emergency Department on the above date and was hospitalized for further evaluation of their emergent condition. - New Patient This patient is new to me today: Yes Date on this admission: 04/22/19 - Critical Care Critical Care patient: No
[2019-04-22] MEDS: HEPARIN NA (PORCINE) 5,000 UNITS/ML 1ML VIAL SQ SCH ×2 (10:03→21:56)
--- NOTE | 2019-04-22 11:20 | CON.ID ---
Consult - History of Present Illness History of Present Illness: 49 y.o. male with morbid obesity, pre-DM, chronic lymphedema LLE >>RLE, HTN presents with c/o persistent and worsening LLE edema and pressure. Was initially seen 5 days ago in the ER and d/c on Clindamycin for possible cellulitis. DVT was ruled out. Pt states symptoms did not improve. Pt has had lymphedema for the past 2 yrs and had been seen by vascular at the time but did not f/u with recommendations of use of compressions/leg elevation and was lost to f/u. Has been using lymph pump sporadically. 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 Currently he is alert, afebrile, without pain. Denies recent fever/chills. Pt without erythema but noted with LLE warmth compared to RLE. No other complaints. - History Source History Provided By: Patient Limitations to Obtaining History: No Limitations - Past Medical History Cardio/Vascular: Yes: HTN Endocrine: Yes: Diabetes Mellitus Additional Medical History: Morbid Obesity - Past Surgical History Past Surgical History: Yes: None - Alcohol/Substance Use Hx Alcohol Use: Yes History of Substance Use: reports: Marijuana - Smoking History Smoking history: Never smoked Have you smoked in the past 12 months: No - Social History Usual Living Arrangement: With Spouse ADL: Independent History of Recent Travel: No Home Medications - Allergies Allergies/Adverse Reactions: Allergies Allergy/AdvReac Type Severity Reaction Status Date / Time No Known Allergies Allergy Verified 04/21/19 11:47 - Home Medications Home Medications: Ambulatory Orders Clindamycin [Cleocin -] 300 mg PO QID 7 Days #28 capsule 04/18/19 Hydrochlorothiazide [Hctz -] 25 mg PO DAILY 04/18/19 Review of Systems - Review of Systems Constitutional: reports: No Symptoms Eyes: reports: No Symptoms HENT: reports: No Symptoms Neck: reports: No Symptoms Cardiovascular: reports: No Symptoms Respiratory: reports: No Symptoms Gastrointestinal: reports: No Symptoms Genitourinary: reports: No Symptoms Musculoskeletal: reports: No Symptoms Integumentary: reports: No Symptoms Neurological: reports: No Symptoms Endocrine: reports: No Symptoms Hematology/Lymphatic: reports: Other (LLE>RLE lymphedema) Physical Exam Vital Signs: Vital Signs Temperature 97.3 F L 04/22/19 10:02 Pulse Rate 85 09/26/19 10:02 Respiratory Rate 18 04/22/19 10:02 Blood Pressure 133/78 04/22/19 10:02 O2 Sat by Pulse Oximetry (%) 98 04/22/19 08:16 Constitutional: Yes: No Distress, Calm Eyes: Yes: Conjunctiva Clear HENT: Yes: Atraumatic Neck: Yes: Supple Cardiovascular: Yes: Regular Rate and Rhythm Respiratory: Yes: CTA Bilaterally Gastrointestinal: Yes: Normal Bowel Sounds, Soft, Abdomen, Obese Renal/: Yes: WNL Musculoskeletal: Yes: WNL Extremities: Yes: Other (LLE>>RLE edema, no erythema, +LLE warmth) Edema: LLE: 4+, RLE: 3+ Integumentary: Yes: WNL Neurological: Yes: Alert, Oriented Psychiatric: Yes: Alert Labs: CBC, BMP 04/21/19 14:00 04/21/19 14:00 Microbiology 04/21/19 14:00 Urine - Urine Clean Catch Urine Culture - Final Strep Agalactiae Group B U/A: neg LE/Nit/wbc Imaging - Results Chest X-ray: Report Reviewed Ultrasound: Report Reviewed Problem List - Problems (1) Lymphedema of extremity Code(s): I89.0 - LYMPHEDEMA, NOT ELSEWHERE CLASSIFIED (2) Cellulitis Code(s): L03.90 - CELLULITIS, UNSPECIFIED (3) HTN (hypertension) Code(s): I10 - ESSENTIAL (PRIMARY) HYPERTENSION Qualifiers: Assessment/Plan 49 y.o. male with morbid obesity, pre-DM, chronic lymphedema LLE >>RLE, HTN presents with c/o persistent and worsening LLE edema and pressure. No erythema/ significant tenderness but +warmth compared to RLE -- will start Keflex PO for now -- Leg elevation -- f/u with Vascular Will follow Thank you
--- NOTE | 2019-04-22 14:08 | EKG ---
Test Reason : Blood Pressure : / mmHG Vent. Rate : 102 BPM Atrial Rate : 102 BPM P-R Int : 134 ms QRS Dur : 076 ms QT Int : 360 ms P-R-T Axes : 039 014 017 degrees QTc Int : 469 ms SINUS TACHYCARDIA WITH OCCASIONAL PREMATURE VENTRICULAR COMPLEXES OTHERWISE NORMAL ECG WHEN COMPARED WITH ECG OF 04-MAR-2017 08:01, PREMATURE VENTRICULAR COMPLEXES ARE NOW PRESENT Confirmed by FLOR VIDALES MD ([id number]) on 04/22/2019 2:07:53 PM Referred By: Confirmed By:FLOR VIDALES MD
--- NOTE | 2019-04-22 18:08 | PN ---
Progress Note, Physician - Current Medication List Current Medications: Active Medications Acetaminophen (Tylenol -) 650 mg PO Q6H PRN PRN Reason: FEVER Heparin Sodium (Porcine) (Heparin -) 5,000 unit SQ BID [facility] Last Admin: 04/22/19 10:03 Dose: 5,000 unit - Objective Vital Signs: Vital Signs Temperature 97.9 F 04/22/19 14:00 Pulse Rate 81 04/22/19 14:00 Respiratory Rate 18 04/22/19 14:00 Blood Pressure 116/67 04/22/19 14:00 O2 Sat by Pulse Oximetry (%) 98 04/22/19 08:16 Constitutional: Yes: No Distress HENT: Yes: Atraumatic Neck: Yes: Supple Cardiovascular: Yes: Regular Rate and Rhythm Respiratory: Yes: CTA Bilaterally Gastrointestinal: Yes: Normal Bowel Sounds Extremities: Yes: Other (llex swelling/cellulitis) Edema: Yes Edema: LLE: 4+ Neurological: Yes: Alert, Oriented Labs: CBC, BMP 04/21/19 14:00 04/21/19 14:00 INR, PTT INR 1.08 (0.83-1.09) 04/21/19 14:00 Problem List - Problems (1) Lymphedema of extremity Code(s): I89.0 - LYMPHEDEMA, NOT ELSEWHERE CLASSIFIED (2) Cellulitis Assessment/Plan: id to start abx doppler negative for dvt Code(s): L03.90 - CELLULITIS, UNSPECIFIED (3) HTN (hypertension) Assessment/Plan: monitor Code(s): I10 - ESSENTIAL (PRIMARY) HYPERTENSION Qualifiers: (4) Pre-diabetes Assessment/Plan: monitor bgms Code(s): R73.03 - PREDIABETES
[2019-04-22] MEDS ORDERED: CEFTRIAXONE 1 GM in DEXTROSE 5%-WATER - 50 ML IVPB ONE (19:00)
[2019-04-22] MEDS ORDERED: cefTRIAXone SODIUM 1 GM VIAL ONE (19:22)
[2019-04-22] MEDS ORDERED: DEXTROSE 5%-WATER - 50 ML IVPB ONE (19:22)
[2019-04-23] MEDS: HEPARIN NA (PORCINE) 5,000 UNITS/ML 1ML VIAL SQ SCH ×2 (09:10→23:15)
--- NOTE | 2019-04-23 13:04 | PN ---
Progress Note, Physician History of Present Illness: stable leg red - Current Medication List Current Medications: Active Medications Acetaminophen (Tylenol -) 650 mg PO Q6H PRN PRN Reason: FEVER Heparin Sodium (Porcine) (Heparin -) 5,000 unit SQ BID [facility] Last Admin: 04/23/19 09:10 Dose: 5,000 unit - Objective Vital Signs: Vital Signs Temperature 97.5 F L 04/23/19 06:00 Pulse Rate 83 04/23/19 06:00 Respiratory Rate 18 04/23/19 06:00 Blood Pressure 135/79 04/23/19 06:00 O2 Sat by Pulse Oximetry (%) 100 04/23/19 07:19 Constitutional: Yes: No Distress, Calm, Obese Cardiovascular: Yes: Regular Rate and Rhythm Respiratory: Yes: Regular, CTA Bilaterally Gastrointestinal: Yes: Normal Bowel Sounds, Soft Musculoskeletal: Yes: WNL Extremities: Yes: WNL Neurological: Yes: Alert, Oriented Psychiatric: Yes: Alert, Oriented Labs: CBC, BMP 04/21/19 14:00 04/21/19 14:00 INR, PTT INR 1.08 (0.83-1.09) 04/21/19 14:00 Assessment/Plan Problem List - Problems (1) Lymphedema of extremity Code(s): I89.0 - LYMPHEDEMA, NOT ELSEWHERE CLASSIFIED (2) Cellulitis Code(s): L03.90 - CELLULITIS, UNSPECIFIED (3) HTN (hypertension) Code(s): I10 - ESSENTIAL (PRIMARY) HYPERTENSION Qualifiers: Assessment/Plan 49 y.o. male with morbid obesity, pre-DM, chronic lymphedema LLE >>RLE, HTN presents with c/o persistent and worsening LLE edema and pressure. No erythema/ significant tenderness but +warmth compared to RLE plan will continue ceftriaxone improving rest as per the team
[2019-04-23] MEDS ORDERED: DEXTROSE 5%-WATER - 50 ML IVPB ONE (16:35)
[2019-04-23] MEDS ORDERED: cefTRIAXone SODIUM 1 GM VIAL ONE (16:35)
[2019-04-23] MEDS: CEFTRIAXONE 1 GM in DEXTROSE 5%-WATER - 50 ML IVPB SCH (16:38)
--- NOTE | 2019-04-23 17:19 | PN ---
Progress Note, Physician - Current Medication List Current Medications: Active Medications Acetaminophen (Tylenol -) 650 mg PO Q6H PRN PRN Reason: FEVER Heparin Sodium (Porcine) (Heparin -) 5,000 unit SQ BID [facility] Last Admin: 04/23/19 09:10 Dose: 5,000 unit Ceftriaxone Sodium 1 gm/ (Dextrose) 50 mls @ 100 mls/hr IVPB DAILY [facility]; Protocol Last Admin: 04/23/19 16:38 Dose: 100 mls/hr - Objective Vital Signs: Vital Signs Temperature 98.4 F 04/23/19 14:00 Pulse Rate 71 04/23/19 14:00 Respiratory Rate 18 04/23/19 14:00 Blood Pressure 155/86 04/23/19 14:00 O2 Sat by Pulse Oximetry (%) 100 04/23/19 07:19 Constitutional: Yes: No Distress HENT: Yes: Atraumatic Neck: Yes: Supple Cardiovascular: Yes: Regular Rate and Rhythm Respiratory: Yes: CTA Bilaterally Gastrointestinal: Yes: Normal Bowel Sounds Extremities: Yes: Erythema Edema: Yes Edema: LLE: 4+ Neurological: Yes: Alert, Oriented Labs: CBC, BMP 04/21/19 14:00 04/21/19 14:00 INR, PTT INR 1.08 (0.83-1.09) 04/21/19 14:00 Problem List - Problems (1) Lymphedema of extremity Code(s): I89.0 - LYMPHEDEMA, NOT ELSEWHERE CLASSIFIED (2) Cellulitis Assessment/Plan: iv abx doppler negative for dvt Code(s): L03.90 - CELLULITIS, UNSPECIFIED (3) HTN (hypertension) Assessment/Plan: monitor Code(s): I10 - ESSENTIAL (PRIMARY) HYPERTENSION Qualifiers: (4) Pre-diabetes Assessment/Plan: monitor bgms Code(s): R73.03 - PREDIABETES
[2019-04-24] MEDS ORDERED: cefTRIAXone SODIUM 1 GM VIAL ONE (10:03)
[2019-04-24] MEDS ORDERED: DEXTROSE 5%-WATER - 50 ML IVPB ONE (10:03)
[2019-04-24] MEDS: HEPARIN NA (PORCINE) 5,000 UNITS/ML 1ML VIAL SQ SCH ×2 (10:42→22:00)
[2019-04-24] MEDS: CEFTRIAXONE 1 GM in DEXTROSE 5%-WATER - 50 ML IVPB SCH (10:43)
--- NOTE | 2019-04-24 12:20 | PN ---
Progress Note, Physician - Current Medication List Current Medications: Active Medications Acetaminophen (Tylenol -) 650 mg PO Q6H PRN PRN Reason: FEVER Heparin Sodium (Porcine) (Heparin -) 5,000 unit SQ BID REPLACED BY [facility] Last Admin: 04/24/19 10:42 Dose: 5,000 unit Ceftriaxone Sodium 1 gm/ (Dextrose) 50 mls @ 100 mls/hr IVPB DAILY REPLACED BY [facility]; Protocol Last Admin: 04/24/19 10:43 Dose: 100 mls/hr - Objective Vital Signs: Vital Signs Temperature 98.4 F 04/24/19 09:20 Pulse Rate 80 04/24/19 09:20 Respiratory Rate 16 04/24/19 09:20 Blood Pressure 133/73 04/24/19 09:20 O2 Sat by Pulse Oximetry (%) 98 04/23/19 21:00 Constitutional: Yes: No Distress HENT: Yes: Atraumatic Neck: Yes: Supple Cardiovascular: Yes: Regular Rate and Rhythm Respiratory: Yes: CTA Bilaterally Gastrointestinal: Yes: Normal Bowel Sounds Extremities: Yes: Other (llex cellulitis) Neurological: Yes: Alert, Oriented Labs: CBC, BMP 04/21/19 14:00 04/21/19 14:00 INR, PTT INR 1.08 (0.83-1.09) 04/21/19 14:00 Problem List - Problems (1) Lymphedema of extremity Code(s): I89.0 - LYMPHEDEMA, NOT ELSEWHERE CLASSIFIED (2) Cellulitis Code(s): L03.90 - CELLULITIS, UNSPECIFIED (3) HTN (hypertension) Code(s): I10 - ESSENTIAL (PRIMARY) HYPERTENSION Qualifiers: (4) Pre-diabetes Code(s): R73.03 - PREDIABETES
[2019-04-24] MEDS: HYDROCHLOROTHIAZIDE 25 MG TABLET (FP) PO SCH (13:27)
--- NOTE | 2019-04-24 16:38 | PN ---
Progress Note, Physician History of Present Illness: Pt without new complaints. Has tightness in LLE but without significant pain. Remains afebrile, without other complaints. - Current Medication List Current Medications: Active Medications Acetaminophen (Tylenol -) 650 mg PO Q6H PRN PRN Reason: FEVER Heparin Sodium (Porcine) (Heparin -) 5,000 unit SQ BID [facility] Last Admin: 04/24/19 10:42 Dose: 5,000 unit Hydrochlorothiazide (Hctz -) 25 mg PO DAILY [facility] Last Admin: 04/24/19 13:27 Dose: 25 mg Ceftriaxone Sodium 1 gm/ (Dextrose) 50 mls @ 100 mls/hr IVPB DAILY [facility]; Protocol Last Admin: 04/24/19 10:43 Dose: 100 mls/hr - Objective Vital Signs: Vital Signs Temperature 98.1 F 04/24/19 14:00 Pulse Rate 84 04/24/19 14:00 Respiratory Rate 18 04/24/19 14:00 Blood Pressure 119/71 04/24/19 14:00 O2 Sat by Pulse Oximetry (%) 98 04/23/19 21:00 Constitutional: Yes: No Distress, Calm Cardiovascular: Yes: Regular Rate and Rhythm Respiratory: Yes: Regular Gastrointestinal: Yes: Normal Bowel Sounds, Soft, Abdomen, Obese Genitourinary: Yes: WNL Edema: LLE: 4+ Integumentary: Yes: Other (LLE lymphedema>>RLE, mild warmth compared to RLE, no tenderness) Labs: CBC, BMP 04/21/19 14:00 04/21/19 14:00 INR, PTT INR 1.08 (0.83-1.09) 04/21/19 14:00 Microbiology 04/21/19 14:00 Blood - Peripheral Venous Blood Culture - Preliminary NO GROWTH OBTAINED AFTER 72 HOURS, INCUBATION TO CONTINUE FOR 2 DAYS. 04/21/19 14:00 Blood - Peripheral Venous Blood Culture - Preliminary NO GROWTH OBTAINED AFTER 72 HOURS, INCUBATION TO CONTINUE FOR 2 DAYS. 04/21/19 14:00 Urine - Urine Clean Catch Urine Culture - Final Strep Agalactiae Group B Problem List - Problems (1) Lymphedema of extremity Code(s): I89.0 - LYMPHEDEMA, NOT ELSEWHERE CLASSIFIED (2) Cellulitis Code(s): L03.90 - CELLULITIS, UNSPECIFIED (3) HTN (hypertension) Code(s): I10 - ESSENTIAL (PRIMARY) HYPERTENSION Qualifiers: Assessment/Plan 49 y.o. male with morbid obesity, pre-DM, chronic lymphedema LLE >>RLE, HTN presents with c/o persistent and worsening LLE edema and pressure. No erythema/ significant tenderness but +warmth compared to RLE -- seeing some improvement, continue antibiotics, will re-evaluate for possible switch to PO -- Leg elevation
[2019-04-24 16:53] LABS: BASO % 0.9 % (0-2.0); EOS % 4.4 % (0-4.5); HEMATOCRIT 42.5 % (35.4-49); HEMOGLOBIN 13.7 GM/dL (11.7-16.9); LYMPH % 27.5 % (8-40); MCH 29.4 pg (25.7-33.7); MCHC 32.2 g/dl (32.0-35.9); MEAN CELL VOLUME 91.2 fl (80-96); MEAN PLT VOLUME 9.5 fl (7.5-11.1); MONO % 7.3 % (3.8-10.2); NEUT % 59.9 % (42.8-82.8); PLATELET COUNT 426 K/MM3 (134-434); RBC 4.66 M/mm3 (4.00-5.60); RDW 14.9 % (11.9-15.9); WHITE BLOOD COUNT 7.1 K/mm3 (4.0-10.0)
[2019-04-24 17:22] LABS: ALBUMIN 3.2 g/dl (3.4-5.0); BILIRUBIN,TOTAL 0.2 mg/dL (0.2-1); BLOOD UREA NITROGEN 14.9 mg/dL (7-18); CALCIUM 9.2 mg/dL (8.5-10.1); POTASSIUM 4.5 mmol/L (3.5-5.1); TOT PROT 7.8 g/dl (6.4-8.2)
[2019-04-24 19:01] VITALS: BMI 56.0
[2019-04-25] MEDS ORDERED: DEXTROSE 5%-WATER - 50 ML IVPB ONE (08:57)
[2019-04-25] MEDS ORDERED: cefTRIAXone SODIUM 1 GM VIAL ONE (08:57)
[2019-04-25] MEDS: HYDROCHLOROTHIAZIDE 25 MG TABLET (FP) PO SCH (09:59)
[2019-04-25] MEDS: CEFTRIAXONE 1 GM in DEXTROSE 5%-WATER - 50 ML IVPB SCH (09:59)
[2019-04-25] MEDS: HEPARIN NA (PORCINE) 5,000 UNITS/ML 1ML VIAL SQ SCH (09:59)
--- NOTE | 2019-04-25 13:00 | PN ---
Progress Note, Physician History of Present Illness: Pt is alert, afebrile. Feels well. Would like to go home. - Current Medication List Current Medications: Active Medications Acetaminophen (Tylenol -) 650 mg PO Q6H PRN PRN Reason: FEVER Heparin Sodium (Porcine) (Heparin -) 5,000 unit SQ BID [facility] Last Admin: 04/25/19 09:59 Dose: 5,000 unit Hydrochlorothiazide (Hctz -) 25 mg PO DAILY [facility] Last Admin: 04/25/19 09:59 Dose: 25 mg Ceftriaxone Sodium 1 gm/ (Dextrose) 50 mls @ 100 mls/hr IVPB DAILY [facility]; Protocol Last Admin: 04/25/19 09:59 Dose: 100 mls/hr - Objective Vital Signs: Vital Signs Temperature 97.4 F L 04/25/19 08:58 Pulse Rate 76 04/25/19 08:58 Respiratory Rate 18 04/25/19 08:58 Blood Pressure 129/70 04/25/19 08:58 O2 Sat by Pulse Oximetry (%) 98 04/24/19 22:00 Constitutional: Yes: No Distress, Calm Cardiovascular: Yes: Regular Rate and Rhythm Respiratory: Yes: Regular Gastrointestinal: Yes: Normal Bowel Sounds, Soft, Abdomen, Obese Genitourinary: Yes: WNL Musculoskeletal: Yes: WNL Edema: Yes Edema: LLE: 4+, RLE: 2+ Integumentary: Yes: WNL, Other (LLE warmth resolved, no erythema, no tenderness on palpation LLE>RLE lymphedema) Neurological: Yes: Alert, Oriented Labs: CBC, BMP 04/24/19 15:46 04/24/19 15:46 INR, PTT INR 1.08 (0.83-1.09) 04/21/19 14:00 Microbiology 04/21/19 14:00 Blood - Peripheral Venous Blood Culture - Preliminary NO GROWTH OBTAINED AFTER 72 HOURS, INCUBATION TO CONTINUE FOR 2 DAYS. 04/21/19 14:00 Blood - Peripheral Venous Blood Culture - Preliminary NO GROWTH OBTAINED AFTER 72 HOURS, INCUBATION TO CONTINUE FOR 2 DAYS. 04/21/19 14:00 Urine - Urine Clean Catch Urine Culture - Final Strep Agalactiae Group B Problem List - Problems (1) Lymphedema of extremity Code(s): I89.0 - LYMPHEDEMA, NOT ELSEWHERE CLASSIFIED (2) Cellulitis Code(s): L03.90 - CELLULITIS, UNSPECIFIED (3) HTN (hypertension) Code(s): I10 - ESSENTIAL (PRIMARY) HYPERTENSION Qualifiers: Assessment/Plan 49 y.o. male with morbid obesity, pre-DM, chronic lymphedema LLE >>RLE, HTN presents with c/o persistent and worsening LLE edema and pressure. No erythema/ significant tenderness but +warmth compared to RLE LLE cellulitis - resolving b/l LE lymphedema -- may switch to keflex 500 mg po Q6 hrs x 6 days starting tomorrow -- leg elevation -- outpt follow up for lymphedema management Pt instructed to seek medical attention if develops recurrence of symptoms, fever, diarrhea/abd pain, rash, or any possible adverse reaction to antibiotics
--- NOTE | 2019-04-25 14:31 | DS ---
Physical Examination Vital Signs: Vital Signs Temperature 97.4 F L 04/25/19 08:58 Pulse Rate 76 04/25/19 08:58 Respiratory Rate 18 04/25/19 09:00 Blood Pressure 129/70 04/25/19 08:58 O2 Sat by Pulse Oximetry (%) 98 04/25/19 09:00 Labs: CBC, BMP 04/24/19 15:46 04/24/19 15:46 Discharge Summary Reason For Visit: LYMPHEDEMA OF EXTREMITY Current Active Problems Lymphedema of extremity (Chronic) Condition: Stable - Instructions Referrals: Yesi Ascencio MD [Staff Physician] - - Home Medications Comprehensive Discharge Medication List: Ambulatory Orders Hydrochlorothiazide [Hctz -] 25 mg PO DAILY 04/18/19 Cephalexin [Keflex] 500 mg PO Q6H #20 capsule 04/25/19
[2019-04-25 14:54] VITALS: BP 125/79; PULSE 88
[2019-04-25 15:06] VITALS: TEMP 98.5
== END 2019-04-25 15:27 | disposition home or self-care (01) | DRG 383 ==
LOC: JERFT 11:30 → JER 11:30 → JERBED 15:26 → J5S 18:06
PROVIDERS: ADMIT Internal Medicine; ATTEND Internal Medicine
DX: L03.116 Cellulitis of left lower limb (principal); I89.0 Lymphedema, not elsewhere classified; I10 Essential (primary) hypertension; E66.01 Morbid (severe) obesity due to excess calories; Z68.43 Body mass index [BMI] 50.0-59.9, adult; E11.9 Type 2 diabetes mellitus without complications
CPT/HCPCS: 36415; 71046-TC-FY; 73590-TC-LT-FY; 80053; 81003; 82962; 85025; 85610; 87040; 87086; 93005; 93010; 93971-TC; 99283-25; J1644

== ENCOUNTER 2019-10-01 10:03 | Emergency (ER) | payer SELFPAY ==
[2019-10-01 10:15] VITALS: BP 154/97; PULSE 95; TEMP 97.5; BMI 50.2
--- NOTE | 2019-10-01 10:55 | PDOC ---
History of Present Illness - General History Source: Patient - History of Present Illness Occurred: reports: other Lower Extremity Pain Location: bilateral: other (LE) <Boone Moon - Last Filed: 10/01/19 12:35> <Lizzy Carias - Last Filed: 10/01/19 17:11> - General Chief Complaint: Pain Stated Complaint: RT. LEG PAIN Time Seen by Provider: 10/01/19 10:38 Past History - Past Medical History COPD: No Diabetes: Yes (borderline) HTN: Yes - Psycho Social/Smoking Cessation Hx Smoking History: Never smoked Have you smoked in the past 12 months: No Hx Alcohol Use: No Drug/Substance Use Hx: No Substance Use Type: None <Boone Moon - Last Filed: 10/01/19 12:35> <Lizzy Carias - Last Filed: 10/01/19 17:11> - Past Medical History Allergies/Adverse Reactions: Allergies Allergy/AdvReac Type Severity Reaction Status Date / Time No Known Allergies Allergy Verified 10/01/19 10:12 Home Medications: Ambulatory Orders Hydrochlorothiazide [Hctz -] 25 mg PO DAILY 04/18/19 Cephalexin [Keflex] 500 mg PO Q6H #20 capsule 04/25/19 Review of Systems - Review of Systems Constitutional: No: Chills, Fever, Malaise Respiratory: No: Shortness of Breath Cardiac (ROS): No: Chest Pain, Palpitations Integumentary: No: Erythema, Pruritus <Boone Moon - Last Filed: 10/01/19 12:35> *Physical Exam - Vital Signs Last Vital Signs Temp Pulse Resp BP Pulse Ox 97.5 F L 95 H 17 154/97 98 10/01/19 10:12 10/01/19 10:12 10/01/19 10:12 10/01/19 10:12 10/01/19 10:12 - Physical Exam General Appearance: Yes: Appropriately Dressed. No: Apparent Distress HEENT: positive: Normal Voice Neck: positive: Supple Respiratory/Chest: positive: Lungs Clear, Normal Breath Sounds. negative: Respiratory Distress Cardiovascular: positive: Regular Rate, S1, S2 Integumentary: positive: Dry, Warm Neurologic: positive: Fully Oriented, Alert, Normal Mood/Affect <Boone Moon Last Filed: 10/01/19 12:35> - Vital Signs Last Vital Signs Temp Pulse Resp BP Pulse Ox 97.5 F L 95 H 17 154/97 98 10/01/19 10:12 10/01/19 10:12 10/01/19 10:12 10/01/19 10:12 10/01/19 10:12 <Lizzy Carias - Last Filed: 10/01/19 17:11> Medical Decision Making - Medical Decision Making 10/01/19 10:53 49 yo morbidly obese male, with history of DM, HTN, chronic lymphedema of b/l LE, lower extremity cellulitis, here with slightly worsening swelling of both of his legs x 3 days with improvement of right leg swelling since. No increased pain. No redness or warmth to site. Denies fever chills or malaise. Was admitted for lower extremity cellulitis March of last year and given follow-up with vascular but states when he called clinic, no one called him back and currently has been lost to follow-up. No history of DVT. No chest pain shortness of breath or palpitations at this time see exam Chronic lower extremity lymphedema with slight worsening now Lost to vascular f/u No systemic symptoms and no evidence of infection on exam No resp/card sxs -US -anticipate dc w/ vascular f/u 10/01/19 12:35 No DVT on bilateral ultrasound. Bilateral calf subq edema seen. Will dc with vascular follow-up at this time 10/01/19 12:36 <Boone Moon - Last Filed: 10/01/19 12:35> - Medical Decision Making I reviewed the case with the mid-level practitioner and agree with the mid-level practitioner's assessment, diagnosis and disposition. <Lizzy Carias - Last Filed: 10/01/19 17:11> Discharge - Discharge Information Problems reviewed: Yes <Boone Moon - Last Filed: 10/01/19 12:35> <Lizzy Carias - Last Filed: 10/01/19 17:11> - Discharge Information Clinical Impression/Diagnosis: Lymphedema Condition: Good Disposition: HOME - Follow up/Referral Referrals: Jassi Humphries DO [Staff Physician] - - Patient Discharge Instructions Additional Instructions: Your ultrasound showed no clots at this time and based on your exam there was no evidence of an acute infection Please follow-up with Dr. Jassi Humphries of vascular next week For any worsening of symptoms, return to the ER
== END 2019-10-01 12:55 | disposition home or self-care (01) ==
LOC: JER 10:03
DX: I89.0 Lymphedema, not elsewhere classified (principal); E11.9 Type 2 diabetes mellitus without complications; I10 Essential (primary) hypertension; E66.01 Morbid (severe) obesity due to excess calories
CPT/HCPCS: 93970-TC; 99284-25

== ENCOUNTER 2021-01-07 10:30 | Emergency (ER) | payer OTHER ==
[2021-01-07 10:39] VITALS: BP 145/85; PULSE 91; TEMP 98; BMI 44.3
[2021-01-07 11:59] LABS: BASO % 0.7 % (0-2.0); EOS % 4.8 % (0-4.5); HEMATOCRIT 42.4 % (35.4-49); HEMOGLOBIN 13.5 GM/dL (11.7-16.9); LYMPH % 13.3 % (8-40); MCH 29.3 pg (25.7-33.7); MCHC 31.9 g/dl (32.0-35.9); MEAN CELL VOLUME 91.9 fl (80-96); MEAN PLT VOLUME 10.5 fl (7.5-11.1); MONO % 10.3 % (3.8-10.2); NEUT % 70.9 % (42.8-82.8); PLATELET COUNT 226 K/MM3 (134-434); RBC 4.61 M/mm3 (4.00-5.60); RDW 15.2 % (11.9-15.9)
[2021-01-07 12:05] LABS: INR 0.93 (0.83-1.09); PROTHROMBIN TIME (PATIENT) 11.5 SEC (9.7-13.0)
[2021-01-07 12:08] LABS: ACTIVATED PTT 29.3 SECONDS (25.2-36.5)
[2021-01-07 12:23] LABS: CALCIUM 9.3 mg/dL (8.5-10.1)
[2021-01-07 12:24] LABS: ALBUMIN 3.2 g/dl (3.4-5.0)
[2021-01-07 12:27] LABS: CREATININE 0.9 mg/dL (0.55-1.3)
[2021-01-07 12:28] LABS: BILIRUBIN,TOTAL 0.3 mg/dL (0.2-1); TOT PROT 7.4 g/dl (6.4-8.2)
[2021-01-07 12:31] LABS: N-TERMINAL BNP 46.2 pg/ml (5-125)
[2021-01-07 13:00] LABS: ANISOCYTOSIS 0; MACROCYTOSIS 1+; PLATELET ESTIMATE NORMAL
[2021-01-07] MEDS ORDERED: CLINDAMYCIN 600MG PREMIX IVPB 600 MG/50 ML BAG IVPB ONE ×2 (14:56→15:23)
[2021-01-07] MEDS ORDERED: SULFAMETHOXAZOLE/TRIMETHOPRIM 800MG/160MG D.S. TABLET PO ONE (15:50)
[2021-01-07] MEDS ORDERED: CEPHALEXIN MONOHYDRATE 500 MG CAPSULE (UD) PO ONE (15:50)
== END 2021-01-07 15:50 | disposition home or self-care (01) ==
LOC: JER 10:30
DX: I89.0 Lymphedema, not elsewhere classified (principal); L03.116 Cellulitis of left lower limb
CPT/HCPCS: 36415; 71046-TC-FY; 80053; 83880; 85025; 85610; 85730; 87040; 93005; 93010; 93970-TC; 99284-25; C9803; U0003; U0005

== ENCOUNTER 2021-04-15 04:23 | Emergency (ER) | payer OTHER ==
[2021-04-15 04:40] VITALS: BMI 51.7
[2021-04-15] MEDS ORDERED: LACTATED RINGERS SOLUTION 1000 ML INFUS.BAG IV ONE (04:50)
[2021-04-15 05:21] LABS: VENOUS BASE EXCESS 0.9 mmol/L (-2-2); VENOUS O2 SATURATION 65.2 % (70-80); VENOUS PCO2 50.9 mmHg (38-52); VENOUS PH 7.349 (7.310-7.410)
[2021-04-15 05:22] LABS: BASO % 0.7 % (0-2.0); EOS % 2.9 % (0-4.5); HEMATOCRIT 40.3 % (35.4-49); HEMOGLOBIN 13.6 GM/dL (11.7-16.9); LYMPH % 29.2 % (8-40); MCH 30.3 pg (25.7-33.7); MCHC 33.6 g/dl (32.0-35.9); MEAN CELL VOLUME 90.1 fl (80-96); MONO % 6.8 % (3.8-10.2); NEUT % 60.4 % (42.8-82.8); PLATELET COUNT 233 10^3/uL (134-434); RBC 4.48 M/mm3 (4.00-5.60); RDW 14.8 % (11.9-15.9); WHITE BLOOD COUNT 7.9 K/mm3 (4.0-10.0)
[2021-04-15 05:28] LABS: INR 0.98 (0.83-1.09)
[2021-04-15 05:30] LABS: ACTIVATED PTT 26.7 SECONDS (25.2-36.5)
[2021-04-15 05:40] LABS: CHLORIDE 100 mmol/L (98-107); SODIUM 137 mmol/L (136-145)
[2021-04-15 05:42] LABS: CALCIUM 9.1 mg/dL (8.5-10.1)
[2021-04-15 05:43] LABS: ALBUMIN 3.7 g/dl (3.4-5.0); ANION GAP 8 MMOL/L (8-16); BLOOD UREA NITROGEN 14.8 mg/dL (7-18); CO2 29 mmol/L (21-32); GLUCOSE,RANDOM 174 mg/dL (74-106)
[2021-04-15 05:46] LABS: CREATININE 1.2 mg/dL (0.55-1.3); SGOT/AST 14 U/L (15-37); SGPT/ALT 16 U/L (13-61)
[2021-04-15 05:47] LABS: BILIRUBIN,TOTAL 0.4 mg/dL (0.2-1)
[2021-04-15 05:48] LABS: TOT PROT 7.8 g/dl (6.4-8.2)
[2021-04-15 05:49] LABS: ALK PHOS 97 U/L (45-117)
[2021-04-15 05:51] LABS: N-TERMINAL BNP 18.5 pg/ml (5-125)
[2021-04-15 09:20] VITALS: BP 106/72; PULSE 91; TEMP 97.9
== END 2021-04-15 09:39 | disposition home or self-care (01) ==
LOC: JER 04:23
DX: R42 Dizziness and giddiness (principal)
CPT/HCPCS: 36415; 71045-TC-FY; 71046-TC-FY; 80053; 82550; 82553; 82803; 83880; 84443; 84484; 85025; 85379; 85610; 85730; 93005; 93010; 99285-25

== ENCOUNTER 2022-09-16 20:44 | Emergency (ER) | payer OTHER ==
[2022-09-16 20:51] VITALS: BP 154/84; PULSE 92; RESP 17; TEMP 97.9; BMI 51.7
[2022-09-16 22:52] LABS: BASO % 0.7 % (0-2.0); EOS % 4.8 % (0-4.5); HEMOGLOBIN 13.6 GM/dL (11.7-16.9); LYMPH % 32.2 % (8-40); MCH 29.9 pg (25.7-33.7); MCHC 32.4 g/dl (32.0-35.9); MEAN CELL VOLUME 92.4 fl (80-96); MONO % 10.2 % (3.8-10.2); NEUT % 52.1 % (42.8-82.8); PLATELET COUNT 197 10^3/uL (134-434); RBC 4.54 M/mm3 (4.00-5.60); RDW 14.6 % (11.9-15.9); WHITE BLOOD COUNT 5.9 K/mm3 (4.0-10.0)
[2022-09-16 23:19] LABS: CALCIUM 8.9 mg/dL (8.5-10.1)
[2022-09-16 23:20] LABS: ALBUMIN 3.4 g/dl (3.4-5.0); BLOOD UREA NITROGEN 14.3 mg/dL (7-18)
[2022-09-16 23:23] LABS: CREATININE 0.9 mg/dL (0.55-1.3)
[2022-09-16 23:24] LABS: BILIRUBIN,TOTAL 0.3 mg/dL (0.2-1)
[2022-09-16 23:28] LABS: N-TERMINAL BNP 54.5 pg/ml (5-125)
== END 2022-09-17 01:33 | disposition home or self-care (01) ==
LOC: JER 20:44
DX: R00.2 Palpitations (principal)
CPT/HCPCS: 36415; 71045-TC-FY; 80053; 83880; 84484; 85025; 93005; 93010; 99285-25

== ENCOUNTER 2022-10-09 16:40 | Emergency (ER) | payer OTHER ==
[2022-10-09 17:09] VITALS: BP 131/90; PULSE 98; RESP 20; TEMP 98.1; BMI 44.3
[2022-10-09 18:53] LABS: BASO % 0.6 % (0-2.0); EOS % 5.5 % (0-4.5); HEMATOCRIT 45.6 % (35.4-49); HEMOGLOBIN 14.8 GM/dL (11.7-16.9); LYMPH % 25.4 % (8-40); MCHC 32.4 g/dl (32.0-35.9); MEAN CELL VOLUME 89.5 fl (80-96); MEAN PLT VOLUME 9.2 fl (7.5-11.1); MONO % 9.1 % (3.8-10.2); NEUT % 59.4 % (42.8-82.8); PLATELET COUNT 278 10^3/uL (134-434); RDW 14.9 % (11.9-15.9); WHITE BLOOD COUNT 7.6 K/mm3 (4.0-10.0)
[2022-10-09 19:04] LABS: INR 1.09 (0.83-1.09); PROTHROMBIN TIME (PATIENT) 12.6 SEC (9.7-13.0)
[2022-10-09 19:17] LABS: CALCIUM 9.7 mg/dL (8.5-10.1)
[2022-10-09 19:18] LABS: ALBUMIN 3.7 g/dl (3.4-5.0)
[2022-10-09 19:23] LABS: BILIRUBIN,TOTAL 0.3 mg/dL (0.2-1)
[2022-10-09] MEDS ORDERED: AMPICILLIN NA/SULBACTAM NA 3 GM in SODIUM CHLORIDE 100 ML IVPB ONE (19:40)
== END 2022-10-09 20:39 | disposition home or self-care (01) ==
LOC: JER 16:40
DX: L03.115 Cellulitis of right lower limb (principal)
CPT/HCPCS: 36415; 80053; 85025; 85610; 86850; 86900; 86901; 87040; 93971-TC; 99284-25

== ENCOUNTER 2022-11-05 17:57 | Emergency (ER) | payer OTHER ==
[2022-11-05 18:09] VITALS: BP 147/92; PULSE 100; RESP 20; TEMP 97.9; BMI 41.8
== END 2022-11-05 20:17 | disposition home or self-care (01) ==
LOC: JERFT 17:57
DX: J01.00 Acute maxillary sinusitis, unspecified (principal); R05.1 Acute cough; R09.81 Nasal congestion; R09.89 Other specified symptoms and signs involving the circulatory and respiratory systems; R51.9 Headache, unspecified; Z20.822 Contact with and (suspected) exposure to COVID-19
CPT/HCPCS: 0241U-QW; 71046-TC-FY; 87651; 99284-25

== ENCOUNTER 2023-01-15 16:39 | Emergency (ER) | payer OTHER ==
[2023-01-15 16:48] VITALS: BP 125/75; PULSE 103; RESP 18; TEMP 98.3; BMI 57.6
[2023-01-15 18:23] LABS: BASO % 0.6 % (0-2.0); EOS % 6.9 % (0-4.5); HEMATOCRIT 44.4 % (35.4-49); HEMOGLOBIN 14.6 GM/dL (11.7-16.9); LYMPH % 24.7 % (8-40); MCH 29.6 pg (25.7-33.7); MEAN CELL VOLUME 89.8 fl (80-96); MEAN PLT VOLUME 9.7 fl (7.5-11.1); MONO % 13.7 % (3.8-10.2); NEUT % 54.1 % (42.8-82.8); PLATELET COUNT 257 10^3/uL (134-434); RBC 4.94 M/mm3 (4.00-5.60); WHITE BLOOD COUNT 6.6 K/mm3 (4.0-10.0)
[2023-01-15 18:28] LABS: PROTHROMBIN TIME (PATIENT) 11.6 SEC (9.7-13.0)
[2023-01-15 18:31] LABS: ACTIVATED PTT 31.5 SECONDS (25.2-36.5)
[2023-01-15 18:44] LABS: ALBUMIN 3.6 g/dl (3.4-5.0); BLOOD UREA NITROGEN 13.1 mg/dL (7-18); MAGNESIUM 1.8 mg/dL (1.8-2.4)
[2023-01-15 18:47] LABS: CREATININE 1.1 mg/dL (0.55-1.3)
[2023-01-15 18:49] LABS: BILIRUBIN,TOTAL 0.6 mg/dL (0.2-1); TOT PROT 8.3 g/dl (6.4-8.2)
[2023-01-15 18:52] LABS: N-TERMINAL BNP 18.3 pg/ml (5-125)
[2023-01-15] MEDS ORDERED: CEPHALEXIN MONOHYDRATE 500 MG CAPSULE (UD) PO ONE (21:30)
[2023-01-15] MEDS ORDERED: CEPHALEXIN MONOHYDRATE 500 MG CAPSULE (UD) ONE (21:32)
== END 2023-01-15 21:35 | disposition left against medical advice (07) ==
LOC: JER 16:39
DX: R22.42 Localized swelling, mass and lump, left lower limb (principal); L03.116 Cellulitis of left lower limb
CPT/HCPCS: 36415; 71045-TC-FY; 80053; 83735; 83880; 84484; 85025; 85610; 85730; 87040; 93005; 93010; 93971-TC; 99285-25

== ENCOUNTER 2023-10-13 13:13 | Emergency (ER) | payer OTHER ==
[2023-10-13 13:31] VITALS: BP 139/90; PULSE 87; RESP 18; TEMP 98.6; BMI 43.5
== END 2023-10-13 16:35 | disposition home or self-care (01) ==
LOC: JERFT 13:13
PROC: 0H9FXZZ Drainage of Right Hand Skin, External Approach (ICD-10-PCS; principal; 2023-10-13)
DX: L03.011 Cellulitis of right finger (principal)
CPT/HCPCS: 99283-25